=== PATIENT | male | born 1955 | race Caucasian/White ===

== ENCOUNTER 2018-05-24 06:27 | Inpatient (IN) | payer BC, OTHER ==
[~2018-05-24] VITALS: Ht 177.8 cm; Wt 127.9 kg
[~2018-05-24 06:27] MED LIST: BUSPIRONE HCL30 MG PO; CARAFATE1 GM PO; COREG12.5 MG PO; DIVALPROEX SOD500 M1 PO; PANTOPRAZOLE SO40 MG PO; ULTRAM50 MG PO; VENLAFAXINE HC150 M1 PO; WELCHOL625 MG PO; ZESTRIL20 MG PO
[2018-05-24 07:01] LABS: BASOPHILS # (AUTO) 0.1 (0.0-0.1); BASOPHILS % 0.7 % (0.0-1.0); EOSINOPHILS # (AUTO) 0.4 (0.0-0.4); EOSINOPHILS % 5.2 % (0.0-6.0); HEMATOCRIT 39.6 % (38.2-49.6); HEMOGLOBIN 12.9 g/dL (14.0-18.0); LYMPHOCYTES # (AUTO) 1.5 (1.0-3.2); LYMPHOCYTES % 19.7 % (18.0-39.1); MEAN CORPUSCULAR HEMOGLOBIN 29.3 pg (28-32); MEAN CORPUSCULAR HGB CONC 32.6 g/dL (31-35); MEAN CORPUSCULAR VOLUME 89.8 fL (81-99); MONOCYTES # (AUTO) 0.6 (0.2-0.8); NEUTROPHILS % 66.3 % (38.7-80.0); PLATELET COUNT 291 x10e3/uL (140-360); RED BLOOD COUNT 4.41 x10e6/uL (4.3-5.7); RED CELL DISTRIBUTION WIDTH 14.2 % (11.7-14.4)
[2018-05-24 07:12] LABS: INR 1.27; PROTHROMBIN TIME 14.9 seconds (11.9-14.5)
[2018-05-24 07:13] LABS: PARTIAL THROMBOPLASTIN TIME 27.6 seconds (23.8-35.5)
[2018-05-24] MEDS ORDERED: DILTIAZEM HCL 5 MG/ML 5 ML VIAL IV STA (07:30)
--- NOTE | 2018-05-24 08:00 | Diagnostic Imaging Report ---
EXAMINATION: CHEST SINGLE (PORTABLE) INDICATION: \S\sob \[id number] \S\0650 \S\Y COMPARISON: None FINDINGS: AP view TUBES and LINES: None. LUNGS: Lungs are well inflated. Bilateral pulmonary edema. Bibasilar atelectasis. PLEURA: Small bilateral pleural effusions. No pneumothorax. HEART AND MEDIASTINUM: Moderate enlargement of the cardiac silhouette. BONES AND SOFT TISSUES: No acute osseous lesion. Soft tissues are unremarkable. UPPER ABDOMEN: No free air under the diaphragm. IMPRESSION: Moderate enlargement of the cardiac silhouette with associated bilateral pulmonary edema. Signed by: Dr. Kay Dallas M.D. on 05/24/2018 7:16 AM
[2018-05-24 08:04] LABS: ALBUMIN 3.1 g/dL (3.5-5.0); ALBUMIN/GLOBULIN RATIO 1.1 (0.8-2.0); ANION GAP 13.3 mmol/L (8-16); CALCIUM 8.9 mg/dL (8.4-10.2); CREATININE, SERUM 1.36 mg/dL (0.72-1.25); POTASSIUM 4.3 mmol/L (3.5-5.1)
[2018-05-24] MEDS ORDERED: MONTELUKAST SOD10 MG PO (08:12)
[2018-05-24] MEDS ORDERED: ASPIRIN81 MG PO (08:12)
[2018-05-24] MEDS ORDERED: LAMOTRIGINE100 MG PO (08:12)
[2018-05-24] MEDS ORDERED: SEROQUEL25 MG PO (08:12)
[2018-05-24] MEDS ORDERED: ATORVASTATIN CA20 MG PO (08:12)
[2018-05-24] MEDS ORDERED: LOSARTAN POTASS25 MG PO (08:12)
[2018-05-24] MEDS: ENOXAPARIN SODIUM INJ 100 MG/ML SYR SC SCH ×2 (08:16→20:25)
[2018-05-24 08:21] LABS: MAGNESIUM 1.9 MG/DL (1.3-2.1)
[2018-05-24] MEDS ORDERED: ASPIRIN 81 MG ENTERIC COATED PO SCH (09:00)
[2018-05-24] MEDS ORDERED: DEXTROSE 50% SYRINGE 50 ML IV PRN (09:00)
[2018-05-24] MEDS ORDERED: MORPHINE SULFATE 2 MG/ML SYR IV PRN (09:00)
[2018-05-24] MEDS ORDERED: ONDANSETRON HCL INJ 2 MG/ML VIAL IV PRN (09:00)
[2018-05-24] MEDS: METOPROLOL TARTRATE 25 MG TAB PO SCH ×3 (09:06→17:25)
[2018-05-24 10:00] VITALS: BP 176/121
[2018-05-24] MEDS ORDERED: CLONIDINE HCL 0.1 MG TAB PO PRN (10:00)
[2018-05-24 10:01] VITALS: BP 190/100
[2018-05-24 10:05] VITALS: BP 190/100
[2018-05-24] MEDS ORDERED: FUROSEMIDE INJ 10 MG/ML 2 ML VIAL IV ONE (10:15)
[2018-05-24] MEDS: FAMOTIDINE 20 MG/2 ML VIAL IV SCH ×2 (10:30→20:32)
[2018-05-24] MEDS ORDERED: INSULIN REGULAR, HUMAN 100 UNIT/1 ML 3ML VIAL SQ SCH (11:30)
[2018-05-24 12:24] VITALS: BP 160/117
[2018-05-24 12:50] LABS: THYROID STIMULATING HORMONE 2.466 uIU/mL (0.350-4.940)
[2018-05-24 13:31] LABS: BILIRUBIN,URINE NEGATIVE (NEGATIVE); COLOR,URINE YELLOW (YELLOW); KETONES,URINE NEGATIVE (NEGATIVE); LEUKOCYTE ESTERASE ,URINE NEGATIVE (NEGATIVE); NITRITE,URINE NEGATIVE (NEGATIVE); PROTEIN,URINE DIPSTICK NEGATIVE (NEGATIVE); URINE UROBILINOGEN 0.2 mg/dL (0.2 - 1)
[2018-05-24] MEDS: BUSPIRONE HCL 5 MG TAB PO SCH ×2 (14:15→20:32)
[2018-05-24] MEDS: VENLAFAXINE HCL 75 MG CAPCR PO SCH ×2 (14:15→20:32)
[2018-05-24] MEDS ORDERED: BUSPIRONE HCL 30 MG PO SCH (15:00)
[2018-05-24 15:04] LABS: CLARITY,URINE SL CLOUDY (CLEAR)
[2018-05-24 16:08] VITALS: BP 164/106
[2018-05-24] MEDS ORDERED: CARVEDILOL 12.5 MG TAB PO SCH (17:00)
[2018-05-24] MEDS: LAMOTRIGINE 100 MG TAB PO SCH (17:25)
[2018-05-24] MEDS: HYDRALAZINE HCL 25 MG TAB PO SCH (17:25)
--- NOTE | 2018-05-24 17:36 | Consultation ---
DATE OF CONSULTATION: May 24, 2018 CARDIOLOGY CONSULTATION REASON FOR CONSULTATION: Congestive heart failure and atrial fibrillation with rapid ventricular response. CHIEF COMPLAINT: Shortness of breath, palpitations. HISTORY OF PRESENT ILLNESS: Patient is a 62-year-old man with history of hypertension, hyperlipidemia and diabetes who presents with 1 day history of palpitations and worsening shortness of breath, was found to be in atrial fibrillation with RVR and was given IV metoprolol as well as diltiazem which achieved adequate rate control. Now admitted for further cardiovascular workup. Denies any chest pain or prior history of NH or any cardiovascular problems including prior diagnosis of atrial fibrillation. Notably the patient was on carvedilol prior to admission, but denies any previous history of congestive heart failure. PAST MEDICAL HISTORY: 1. Hypertension. 2. Hyperlipidemia. 3. Diabetes. 4. Obesity. FAMILY HISTORY: No family history of early CAD or sudden cardiac . SOCIAL HISTORY: Patient denies any current smoking, drinking or illicit drug use. REVIEW OF SYSTEMS: Ten point review of systems was performed and is negative other than what is mentioned in history of present illness. PHYSICAL EXAMINATION: VITALS: Temperature 96.5, heart rate 128, respiratory rate 20, blood pressure 160/117, satting 95% on 2 liters nasal cannula. GENERAL: An obese, white man in no acute distress. CARDIOVASCULAR: Limited due to body habitus. PMI cannot be palpated. Irregular tachycardic. Normal S1and S2. No murmurs, rubs or gallops. Palpable carotid pulses. Palpable radial pulses. There is 1+ peripheral edema. No varicosities. RESPIRATORY: Exam again limited due to body habitus. There are decreased breath sounds on the left. ABDOMEN: Soft. Obese. Nontender with no masses. NEURO AND PSYCH: Alert and oriented to person, place and time. Normal affect. MEDICATIONS: Reviewed. LABORATORY DATA: Reviewed and notable for negative cardiac enzymes times two. BNP of 667. Creatinine of 1.4. IMAGING DATA: Reviewed. Chest x-ray shows left pleural effusion and pulmonary edema. ECG reviewed and shows atrial fibrillation with RVR. No ST-T changes suggestive of ischemia. Echocardiogram reviewed by me shows severely decreased LV systolic function EF of 30% to 35%. No significant valvular abnormalities. ASSESSMENT 1. Acute systolic heart failure. 2. Atrial fibrillation with rapid ventricular response. 3. Hypertension. 4. Pulmonary edema. 5. Hyperlipidemia. 6. Diabetes. 7. Acute kidney injury. PLAN: Recommend diuresing with furosemide 40 mg IV q.8 hours. Will up-titrate his metoprolol to achieve better rate control. Will discontinue carvedilol. Will also start him on hydralazine and nitrates for better BP control. Will hold MARAH inhibitors for now until renal function stabilizes as he may have an acute kidney injury. Continue aspirin and atorvastatin for primary prevention. Once he is euvolemic, he will require ischemic workup for his cardiomyopathy given his risk factors. Thank you for this consult. Will continue to follow. Job#: [id number]
[2018-05-24 20:00] VITALS: BP 162/107
[2018-05-24] MEDS: ATORVASTATIN 20 MG TAB PO SCH (20:32)
[2018-05-24] MEDS: QUETIAPINE FUMARATE 100 MG TAB PO SCH (21:11)
[2018-05-24] MEDS: FUROSEMIDE INJ 10 MG/ML 4 ML VIAL IV SCH (22:07)
[2018-05-24 23:49] LABS: CREATINE KINASE MB 3.9 ng/mL (0-5.0)
[2018-05-25] VITALS (9 sets, daily range): BP systolic 115–172; BP diastolic 67–112
[2018-05-25] MEDS: HYDRALAZINE HCL 25 MG TAB PO SCH ×4 (00:10→17:39)
[2018-05-25] MEDS: METOPROLOL TARTRATE 25 MG TAB PO SCH ×5 (00:30→17:39)
[2018-05-25 05:32] LABS: BASOPHILS % 0.4 % (0.0-1.0); EOSINOPHILS # (AUTO) 0.2 (0.0-0.4); EOSINOPHILS % 2.4 % (0.0-6.0); HEMATOCRIT 37.8 % (38.2-49.6); LYMPHOCYTES # (AUTO) 2.1 (1.0-3.2); MEAN CORPUSCULAR HEMOGLOBIN 28.9 pg (28-32); MEAN CORPUSCULAR HGB CONC 31.7 g/dL (31-35); MEAN CORPUSCULAR VOLUME 91.1 fL (81-99); MONOCYTES # (AUTO) 0.7 (0.2-0.8); MONOCYTES % 9.2 % (4.4-11.3); NEUTROPHILS # (AUTO) 4.7 (2.1-6.9); NEUTROPHILS % 60.6 % (38.7-80.0); PLATELET COUNT 257 x10e3/uL (140-360); RED BLOOD COUNT 4.15 x10e6/uL (4.3-5.7); RED CELL DISTRIBUTION WIDTH 14.4 % (11.7-14.4)
[2018-05-25 05:54] LABS: ALBUMIN 3.2 g/dL (3.5-5.0); ALBUMIN/GLOBULIN RATIO 1.1 (0.8-2.0); ANION GAP 15.3 mmol/L (8-16); CALCIUM 8.9 mg/dL (8.4-10.2); CHOL/HDL RATIO 5.1 (3.9-4.7); CREATININE, SERUM 1.51 mg/dL (0.72-1.25); POTASSIUM 4.3 mmol/L (3.5-5.1)
[2018-05-25] MEDS: FUROSEMIDE INJ 10 MG/ML 4 ML VIAL IV SCH ×3 (05:56→22:30)
[2018-05-25] MEDS: ASPIRIN 81 MG CHEW TAB PO SCH (08:42)
[2018-05-25] MEDS: BUSPIRONE HCL 5 MG TAB PO SCH ×3 (08:42→21:32)
[2018-05-25] MEDS: ENOXAPARIN SODIUM INJ 100 MG/ML SYR SC SCH ×2 (08:42→20:40)
[2018-05-25] MEDS: VENLAFAXINE HCL 75 MG CAPCR PO SCH ×3 (08:42→21:32)
[2018-05-25] MEDS: LAMOTRIGINE 100 MG TAB PO SCH ×2 (08:42→17:39)
[2018-05-25] MEDS: FAMOTIDINE 20 MG/2 ML VIAL IV SCH ×2 (08:42→21:32)
[2018-05-25] MEDS: MONTELUKAST SODIUM 10 MG TAB PO SCH (08:42)
[2018-05-25] MEDS: LOSARTAN POTASSIUM 100 MG TAB PO SCH (08:42)
[2018-05-25] MEDS ORDERED: LOSARTAN POTASSIUM 25 MG TAB PO SCH (09:00)
--- NOTE | 2018-05-25 12:24 | Progress Note ---
DATE: May 25, 2018 CARDIOLOGY PROGRESS NOTE SUBJECTIVE: Patient denies chest pain or shortness of breath. OBJECTIVE VITAL SIGNS: Temperature 96.5 degrees, pulse 104, respiratory rate 20, blood pressure 115/67, oxygen saturation 93% on nasal cannula. GENERAL: A morbidly obese gentleman in no acute distress. LUNGS: Clear to auscultation. However, appears tachypneic on exam. CARDIOVASCULAR: Irregularly irregular, tachycardic. Normal S1 and S2. No murmur. ABDOMEN: Soft, nontender. EXTREMITIES: Trace edema. CARDIAC MEDICATIONS 1. Losartan 100 mg p.o. daily. 2. Aspirin 81 mg p.o. daily. 3. Enoxaparin 100 mg subcutaneous q.12 h. 4. Metoprolol tartrate 37.5 mg p.o. q.6 h. 5. Furosemide 40 mg IV q.8 h. 6. Atorvastatin 20 mg p.o. nightly. LABS: WBC 7.82, hemoglobin 12, hematocrit 37.8, platelets 257. Sodium 142, potassium 4.3, chloride 106, CO2 25, BUN 18, creatinine 1.51. Troponin 0.022. Cholesterol 163, LDL 104, HDL 32, triglycerides 133. TELEMETRY: Atrial fibrillation. IMPRESSION 1. Acute systolic heart failure with ejection fraction 30% to 35%. 2. Atrial fibrillation, borderline rate control. 3. Pulmonary edema. 4. Hypertension. 5. Hyperlipidemia. 6. Diabetes mellitus. 7. Acute kidney injury. RECOMMENDATIONS: Continue diuretics. Patient remains volume-overloaded on exam. Uptitrate metoprolol for improved rate control. He will need to be switched to metoprolol succinate on discharge. Continue current cardiac medications otherwise. Discussed Coumadin versus novel oral anticoagulant with patient. He expressed preference for Xarelto. We can change patient to this medication on discharge if renal function is adequate. Continue current cardiac medications otherwise. He will require ischemic evaluation once he is euvolemic. Thank you for this consult. We will continue to follow. Job#: [id number] EV
--- NOTE | 2018-05-25 16:53 | Diagnostic Imaging Report ---
Examination: CT head without contrast Clinical Indication: Increased confusion. Technique: Transaxial noncontrast images from the skull base through the vertex were obtained. Sagittal and coronal reformatted images were done. Dose modulation, iterative reconstruction, and/or weight based adjustment of the mA/kV was utilized to reduce the radiation dose to as low as reasonably achievable. Comparison: None. Findings: Scalp: No abnormalities. Bones: Intact. No fractures. No blastic or lytic lesions. Brain sulci: Appropriate for patient's age. Ventricles: The ventricular size is out of proportion with respect to cerebral convexity sulci, concerning for a communicating type of hydrocephalus, such as normal pressure hydrocephalus. Extra-axial space: No abnormalities. Parenchyma: There are mild confluent areas of low-attenuation within subcortical and periventricular white matter, nonspecific, but could represent microvascular ischemic disease. No masses, hemorrhage, or acute or chronic cortical based vascular insults. Suprasellar region: No abnormalities. Craniocervical junction: The foramen magnum is patent. No Chiari one malformation. Impression: 1. No acute intracranial finding. 2. FIndings as described above are concerning for normal pressure hydrocephalus. 3. Moderate chronic microvascular ischemic change. Signed by: Dr. Bety Ag M.D. on 05/25/2018 4:50 PM
[2018-05-25] MEDS: ATORVASTATIN 20 MG TAB PO SCH (21:32)
[2018-05-25] MEDS: QUETIAPINE FUMARATE 100 MG TAB PO SCH (21:32)
[2018-05-26] VITALS (8 sets, daily range): BP systolic 128–155; BP diastolic 61–90
[2018-05-26] MEDS: METOPROLOL TARTRATE 25 MG TAB PO SCH ×4 (00:43→18:34)
[2018-05-26] MEDS: HYDRALAZINE HCL 25 MG TAB PO SCH ×4 (00:43→18:34)
[2018-05-26] MEDS: FUROSEMIDE INJ 10 MG/ML 4 ML VIAL IV SCH ×2 (06:05→15:00)
[2018-05-26] MEDS ORDERED: RIVAROXABAN 15 MG TABLET PO SCH (09:00)
[2018-05-26] MEDS: LOSARTAN POTASSIUM 100 MG TAB PO SCH (09:00)
[2018-05-26] MEDS: ASPIRIN 81 MG CHEW TAB PO SCH (09:55)
[2018-05-26] MEDS: LAMOTRIGINE 100 MG TAB PO SCH ×2 (09:55→21:50)
[2018-05-26] MEDS: FAMOTIDINE 20 MG/2 ML VIAL IV SCH ×2 (09:55→21:50)
[2018-05-26] MEDS: BUSPIRONE HCL 5 MG TAB PO SCH ×3 (09:55→21:50)
[2018-05-26] MEDS: VENLAFAXINE HCL 75 MG CAPCR PO SCH ×3 (09:55→21:50)
[2018-05-26] MEDS: MONTELUKAST SODIUM 10 MG TAB PO SCH (09:55)
[2018-05-26] MEDS: FUROSEMIDE 40 MG TAB PO SCH (17:19)
[2018-05-26] MEDS: QUETIAPINE FUMARATE 100 MG TAB PO SCH (21:50)
[2018-05-26] MEDS: ATORVASTATIN 20 MG TAB PO SCH (21:50)
[2018-05-27] VITALS (7 sets, daily range): BP systolic 128–155; BP diastolic 63–95
[2018-05-27] MEDS: METOPROLOL TARTRATE 25 MG TAB PO SCH ×4 (00:45→18:00)
[2018-05-27] MEDS: HYDRALAZINE HCL 25 MG TAB PO SCH ×4 (00:45→18:00)
[2018-05-27] MEDS: FUROSEMIDE 40 MG TAB PO SCH ×2 (06:30→18:00)
[2018-05-27] MEDS: MONTELUKAST SODIUM 10 MG TAB PO SCH (08:53)
[2018-05-27] MEDS: VENLAFAXINE HCL 75 MG CAPCR PO SCH ×3 (08:53→22:55)
[2018-05-27] MEDS: ASPIRIN 81 MG CHEW TAB PO SCH (08:53)
[2018-05-27] MEDS: LAMOTRIGINE 100 MG TAB PO SCH ×2 (08:53→22:55)
[2018-05-27] MEDS: LOSARTAN POTASSIUM 100 MG TAB PO SCH (08:53)
[2018-05-27] MEDS: FAMOTIDINE 20 MG/2 ML VIAL IV SCH ×2 (08:53→22:55)
[2018-05-27] MEDS: BUSPIRONE HCL 5 MG TAB PO SCH ×3 (08:53→22:55)
[2018-05-27] MEDS ORDERED: ENOXAPARIN SODIUM INJ 100 MG/ML SYR SC SCH ×2 (09:00→11:30)
[2018-05-27 10:14] LABS: ANION GAP 13.6 mmol/L (8-16); CALCIUM 9.3 mg/dL (8.4-10.2); CREATININE, SERUM 1.58 mg/dL (0.72-1.25); POTASSIUM 3.6 mmol/L (3.5-5.1)
[2018-05-27] MEDS ORDERED: FUROSEMIDE INJ 10 MG/ML 4 ML VIAL IV SCH (11:00)
--- NOTE | 2018-05-27 12:31 | Progress Note ---
DATE: May 27, 2018 CARDIOLOGY PROGRESS NOTE SUBJECTIVE: Patient denies chest pain or shortness of breath. OBJECTIVE VITAL SIGNS: Temperature 96.9 degrees, pulse 82, respiratory rate 22, blood pressure 136/90, oxygen saturation 94%. GENERAL: Obese gentleman, in no acute distress. LUNGS: Clear to auscultation bilaterally. No wheezes or crackles. CARDIOVASCULAR: Normal rate and regular rhythm. Normal S1 and S2. No murmur. ABDOMEN: Soft, nontender. EXTREMITIES: Trace edema. CARDIAC MEDICATIONS 1. Losartan 100 mg p.o. daily. 2. Aspirin 81 mg p.o. daily. 3. Furosemide 40 mg p.o. b.i.d. 4. Metoprolol tartrate 50 mg p.o. q.6h. 5. Atorvastatin 20 mg p.o. q.h.s. 6. Lovenox 100 mg subcutaneous daily. LABS: WBC 7.82, hemoglobin 12, hematocrit 37.8, and platelets 257. Sodium 137, potassium 3.6, chloride 101, CO2 26, BUN 21, creatinine 1.58. BMP 441. TELEMETRY: Normal sinus rhythm. IMPRESSION 1. Acute systolic heart failure with ejection fraction 30% to 35%. 2. Atrial fibrillation, currently sinus rhythm. 3. Pulmonary edema. 4. Hypertension. 5. Hyperlipidemia. 6. Diabetes mellitus. 7. Acute kidney injury versus chronic kidney disease. RECOMMENDATIONS: Continue diuretics. Additional dose of IV Lasix today. Continue current cardiac medications. He will need to be switched to metoprolol succinate on discharge. Xarelto was stopped for cardiac catheterization tomorrow. NPO after midnight. Thank you for this consult. We will continue to follow. Job#: [id number] ALONZO
[2018-05-27] MEDS ORDERED: ENOXAPARIN SOD INJ 40 MG/0.4 ML SYR SC SCH (17:00)
[2018-05-27] MEDS: ATORVASTATIN 20 MG TAB PO SCH (22:56)
[2018-05-27] MEDS: QUETIAPINE FUMARATE 100 MG TAB PO SCH (22:56)
[2018-05-28] VITALS (13 sets, daily range): BP systolic 72–161; BP diastolic 57–123
[2018-05-28] MEDS: HYDRALAZINE HCL 25 MG TAB PO SCH ×3 (00:49→12:18)
[2018-05-28] MEDS: METOPROLOL TARTRATE 25 MG TAB PO SCH ×3 (00:49→12:18)
[2018-05-28 06:04] LABS: BASOPHILS % 0.5 % (0.0-1.0); EOSINOPHILS # (AUTO) 0.4 (0.0-0.4); EOSINOPHILS % 5.1 % (0.0-6.0); HEMATOCRIT 38.7 % (38.2-49.6); HEMOGLOBIN 12.6 g/dL (14.0-18.0); LYMPHOCYTES # (AUTO) 1.9 (1.0-3.2); LYMPHOCYTES % 24.7 % (18.0-39.1); MEAN CORPUSCULAR HEMOGLOBIN 29.2 pg (28-32); MEAN CORPUSCULAR HGB CONC 32.6 g/dL (31-35); MEAN CORPUSCULAR VOLUME 89.8 fL (81-99); NEUTROPHILS # (AUTO) 4.3 (2.1-6.9); NEUTROPHILS % 56.3 % (38.7-80.0); PLATELET COUNT 249 x10e3/uL (140-360); RED BLOOD COUNT 4.31 x10e6/uL (4.3-5.7); RED CELL DISTRIBUTION WIDTH 14.5 % (11.7-14.4)
[2018-05-28] MEDS: FUROSEMIDE 40 MG TAB PO SCH (06:16)
[2018-05-28 06:28] LABS: ANION GAP 14.9 mmol/L (8-16); CALCIUM 9.5 mg/dL (8.4-10.2); CREATININE, SERUM 1.66 mg/dL (0.72-1.25); POTASSIUM 3.9 mmol/L (3.5-5.1)
[2018-05-28] MEDS ORDERED: HEPARIN SOD/SOD CHLORIDE 2,000 ML ONE (06:49)
[2018-05-28] MEDS ORDERED: IOPAMIDOL 370 MG/ML 200 ML INFUS..BTL INJ ONE (06:49)
[2018-05-28] MEDS ORDERED: LIDOCAINE HCL 2% LOCAL 20 ML VIAL ONE (06:49)
[2018-05-28] MEDS ORDERED: MIDAZOLAM HCL 2 MG/2 ML VIAL ONE (06:52)
[2018-05-28] MEDS ORDERED: FENTANYL CITRATE/PF 100MCG/2 ML INJ ONE (06:53)
[2018-05-28] MEDS ORDERED: SODIUM CHLORIDE 0.9% 1000ML 1,000 ML ONE (06:53)
[2018-05-28] MEDS ORDERED: NITROGLYCERIN/D5W 200 MCG/ML 250 ML ONE (07:20)
[2018-05-28] MEDS ORDERED: VERAPAMIL HCL 2.5 MG/ML 2 ML VIAL ONE (07:20)
[2018-05-28] MEDS ORDERED: HEPARIN SOD (PORCINE) 1000 UNIT/ML 30ML ONE (07:20)
[2018-05-28] MEDS: ASPIRIN 81 MG CHEW TAB PO SCH (09:00)
[2018-05-28] MEDS: BUSPIRONE HCL 5 MG TAB PO SCH (10:46)
[2018-05-28] MEDS: LAMOTRIGINE 100 MG TAB PO SCH (10:46)
[2018-05-28] MEDS: LOSARTAN POTASSIUM 100 MG TAB PO SCH (10:46)
[2018-05-28] MEDS: FAMOTIDINE 20 MG/2 ML VIAL IV SCH (10:46)
[2018-05-28] MEDS: MONTELUKAST SODIUM 10 MG TAB PO SCH (10:46)
[2018-05-28] MEDS: VENLAFAXINE HCL 75 MG CAPCR PO SCH (10:46)
[2018-05-28] MEDS ORDERED: METOPROLOL SUCC50 MG PO (11:11)
[2018-05-28] MEDS ORDERED: LASIX40 MG PO (11:12)
[2018-05-28] MEDS ORDERED: XARELTO10 MG PO (11:12)
--- NOTE | 2018-05-28 15:29 | Operative Report ---
DATE OF PROCEDURE: May 28, 2018 PROCEDURE: Cardiac catheterization. INDICATIONS: Congestive heart failure with EF less than 30%, atrial fibrillation. SEDATION AND CONSENT: Prior to the procedure, the risks, benefits, and alternatives of the procedure and moderate sedation were explained to the patient and his family. They understood and consented to proceed. MEDICATION ADMINISTRATION: Please see nursing notes for medications administered during the procedure. PROCEDURE IN DETAIL: Patient was brought to the cardiac catheterization laboratory in a fasting state. Right wrist was prepped and draped in a sterile fashion. A 1% lidocaine was used to infiltrate the right wrist over the right radial artery. A 6-Czech slender sheath was placed in the right radial artery using the modified Seldinger technique. A 6-Czech Medstro catheter was used to perform coronary angiography of the RCA and the LCA. Left heart catheterization was performed using an angled pigtail catheter. All catheters were removed over a wire. The access site was closed using TR band. Case ended without any complications. Estimated blood loss approximately 20 mL. FINDINGS: Left main coronary artery large caliber normal. LAD, very large vessel close to the apex. Large diagonal one. There is 30% plaque at the bifurcation of diagonal one and some luminal irregularities. No significant obstructive disease of the LAD. Left circumflex, large non-dominant vessel. Two small OM branches luminal irregularities only. RCA, very large dominant RCA, ectatic with sluggish flow. Large RPL system. Medium-sized RPDA system. No obstructive CAD of the RCA; however, there is significant arthrosclerotic burden with positive remodeling and ectasia of the entire RCA. COMPLICATIONS: None. SPECIMEN REMOVED: None. IMPLANTS: None. ESTIMATED BLOOD LOSS: 20 mL. RECOMMENDATIONS 1. Usual post-cath care until TR band removal. 2. Continue optimal medical therapy and risk factor control. 3. Follow up in the office 2 weeks post-procedure. 4. Management of heart failure and atrial fibrillation. Thank you for this consult. Job#: [id number] ANA LUISA
== END 2018-05-28 13:15 | disposition home health service (06) | DRG 286 ==
LOC: ER 06:27 → ERHOLD 09:02 → MED/SURG 09:32
PROVIDERS: ADMIT Family Medicine; ATTEND Family Medicine
PROC: 4A023N7 Measurement of Cardiac Sampling and Pressure, Left Heart, Percutaneous Approach (ICD-10-PCS; principal; 2018-05-28)
PROC: B2151ZZ Fluoroscopy of Left Heart using Low Osmolar Contrast (ICD-10-PCS; 2018-05-28)
PROC: B2111ZZ Fluoroscopy of Multiple Coronary Arteries using Low Osmolar Contrast (ICD-10-PCS; 2018-05-28)
DX: I13.0 Hypertensive heart and chronic kidney disease with heart failure and stage 1 through stage 4 chronic kidney disease, or unspecified chronic kidney disease (principal); I50.23 Acute on chronic systolic (congestive) heart failure; N17.9 Acute kidney failure, unspecified; R00.2 Palpitations; Z86.73 Personal history of transient ischemic attack (TIA), and cerebral infarction without residual deficits; E78.5 Hyperlipidemia, unspecified; Z83.3 Family history of diabetes mellitus; Z82.49 Family history of ischemic heart disease and other diseases of the circulatory system; I48.91 Unspecified atrial fibrillation; N18.9 Chronic kidney disease, unspecified; F31.9 Bipolar disorder, unspecified; E66.01 Morbid (severe) obesity due to excess calories; G47.30 Sleep apnea, unspecified; I25.10 Atherosclerotic heart disease of native coronary artery without angina pectoris; E11.22 Type 2 diabetes mellitus with diabetic chronic kidney disease; Z68.36 Body mass index [BMI] 36.0-36.9, adult
CPT/HCPCS: 36415; 70450; 71045; 80048; 80053; 80061; 81001; 82550; 82553; 83735; 83880; 84443; 84484; 85025; 85379; 85610; 85730; 87086; 93306; 93458; 99284; C1769; J1644; J1650; J1940; J2001; J2250; J2270; J7030; Q9967

== ENCOUNTER 2018-09-13 06:45 | Observation (INO) | payer OTHER ==
[~2018-09-13] VITALS: Ht 172.7 cm; Wt 135.7 kg
[~2018-09-13 06:45] MED LIST changes: +ASPIRIN81 MG PO; +ATORVASTATIN CA20 MG PO; +LAMOTRIGINE100 MG PO; +LASIX40 MG PO; +LOSARTAN POTASS25 MG PO; +METOPROLOL SUCC50 MG PO; +MONTELUKAST SOD10 MG PO; +SEROQUEL25 MG PO; +XARELTO10 MG PO
--- OUTSIDE RECORDS SUMMARY | 2018-09-13 06:48 | XMS REPORT ---
Author Author [facility] Address Unknown Phone Unavailable Care Team Providers Care Ict Account Manager Name Role Phone Svitlana BAIG Unavailable Unavailable Problems This patient has no known problems. Allergies, Adverse Reactions, Alerts This patient has no known allergies or adverse reactions. Medications This patient has no known medications. Results Test Description Test Time Test Comments Text Results Atomic Results Result Comments CT BRAIN WO 2018-05-25 16:47:00 [facility] [address] [place], [place] [address] Patient Name: MADDY FRAIRE MR #: [id number] : 1955 Age/Sex: 62/M Req #: [id number] Adm Physician: MANOHAR BAIG MD Ordered by: MANOHAR BAIG MD Report #: [id number] Location: MED/SURG Room/Bed: [facility] Procedure: [id number] CT/CT BRAIN WO Exam Date: 05/25/18 Exam Time: 1600 REPORT STATUS: Signed Examination: CT head without contrast Clinical Indication: Increased confusion. Technique: Transaxial noncontrast images from the skull base through the vertex were obtained. Sagittal and coronal reformatted images were done. Dose modulation, iterative reconstruction, and/or weight based adjustment of the mA/kV was utilized to reduce the radiation dose to as low as reasonably achievable. Comparison: None. Findings: Scalp: No abnormalities. Bones: Intact. No fractures. No blastic or lytic lesions. Brain sulci: Appropriate for patient's age. Ventricles: The ventricular size is out of proportion with respect to cerebral convexity sulci, concerning for a communicating type of hydrocephalus, such as normal pressure hydrocephalus. Extra-axial space: No abnormalities. Parenchyma: There are mild confluent areas of low-attenuation within subcortical and periventricular white matter, nonspecific, but could represent microvascular ischemic disease. No masses, hemorrhage, or acute or chronic cortical based vascular insults. Suprasellar region: No abnormalities. Craniocervical junction: The foramen magnum is patent. No Chiari one malformation. Impression: 1. No acute intracranial finding. 2. FIndings as described above are concerning for normal pressure hydrocephalus. 3. Moderate chronic microvascular ischemic change. Signed by: Dr. Bety Eng M.D. on 05/25/2018 4:50 PM Dictated By: BETY ENG MD 49 Transcribed By: AMILCAR on 05/25/18 165 COPY TO: MANOHAR BAIG MD CHEST SINGLE (PORTABLE) 2018-05-24 07:15:00 [place] [address] Patient Name: MADDY FRAIRE MR #: [id number] : 1955 Age/Sex: 62/M Req #: [id number] Adm Physician: Ordered by: MAKAYLA HARRY MD Report #: [id number] Location: ER Room/Bed: Procedure: [id number] DX/CHEST SINGLE (PORTABLE) Exam Date: 05/24/18 Exam Time: 0650 REPORT STATUS: Signed EXAMINATION: CHEST SINGLE (PORTABLE) INDICATION: COMPARISON: None FINDINGS: AP view TUBES and LINES: None. LUNGS: Lungs are well inflated. Bilateral pulmonary edema. Bibasilar atelectasis. PLEURA: Small bilateral pleural effusions. No pneumothorax. HEART AND MEDIASTINUM: Moderate enlargement of the cardiac silhouette. BONES AND SOFT TISSUES: No acute osseous lesion. Soft tissues are unremarkable. UPPER ABDOMEN: No free air under the diaphragm. IMPRESSION: Moderate enlargement of the cardiac silhouette with associated bilateral pulmonary edema. Signed by: Dr. Angela Perrin M.D. on 05/24/2018 7:16 AM Dictated By: ANGELA PERRIN MD 0716 COPY TO: MAKAYLA HARRY MD
--- NOTE | 2018-09-13 07:40 | NUR ---
XRAY AT BEDSIDE FOR CXR.
[2018-09-13 07:44] LABS: BASOPHILS % 0.4 % (0.0-1.0); EOSINOPHILS # (AUTO) 0.4 (0.0-0.4); EOSINOPHILS % 5.1 % (0.0-6.0); HEMATOCRIT 37.8 % (38.2-49.6); HEMOGLOBIN 11.8 g/dL (14.0-18.0); LYMPHOCYTES # (AUTO) 1.2 (1.0-3.2); LYMPHOCYTES % 15.3 % (18.0-39.1); MEAN CORPUSCULAR HEMOGLOBIN 28.9 pg (28-32); MEAN CORPUSCULAR HGB CONC 31.2 g/dL (31-35); MEAN CORPUSCULAR VOLUME 92.4 fL (81-99); MONOCYTES # (AUTO) 0.7 (0.2-0.8); MONOCYTES % 8.4 % (4.4-11.3); NEUTROPHILS # (AUTO) 5.6 (2.1-6.9); NEUTROPHILS % 70.3 % (38.7-80.0); PLATELET COUNT 200 x10e3/uL (140-360); RED BLOOD COUNT 4.09 x10e6/uL (4.3-5.7); RED CELL DISTRIBUTION WIDTH 16.8 % (11.7-14.4)
[2018-09-13 07:59] LABS: ALBUMIN 3.4 g/dL (3.5-5.0); ALBUMIN/GLOBULIN RATIO 1.1 (0.8-2.0); ANION GAP 12.9 mmol/L (8-16); CALCIUM 8.8 mg/dL (8.4-10.2); CREATININE, SERUM 1.36 mg/dL (0.72-1.25); POTASSIUM 4.9 mmol/L (3.5-5.1)
--- NOTE | 2018-09-13 08:05 | Diagnostic Imaging Report ---
EXAMINATION: CHEST SINGLE (PORTABLE) COMPARISON: Chest radiograph 05/24/2018. FINDINGS: Exam is limited by portable technique and rotation. TUBES and LINES: None. LUNGS: Low lung volumes. Patchy opacities in the bilateral lower and right mid lung zones. Perihilar and interstitial opacities. PLEURA: Small bilateral pleural effusions. No evidence of pneumothorax. HEART AND MEDIASTINUM: Mild enlargement of the cardiomediastinal silhouette. BONES AND SOFT TISSUES: No acute osseous lesion. Soft tissues are unremarkable. UPPER ABDOMEN: No free air under the diaphragm. IMPRESSION: Mild pulmonary interstitial edema and small bilateral pleural effusions. Cardiomegaly. Low lung volumes with patchy opacities in the lower lungs which could represent atelectasis or pneumonia in the appropriate clinical setting. Follow-up radiograph to resolution is suggested. Signed by: Dr. Kashif Vee MD on 09/13/2018 8:01 AM
[2018-09-13 08:06] LABS: CREATINE KINASE MB 1.5 ng/mL (0-5.0)
[2018-09-13] MEDS ORDERED: MIRTAZAPINE15 MG PO (08:45)
[2018-09-13] MEDS ORDERED: LAMOTRIGINE100 MG PO (08:45)
[2018-09-13] MEDS ORDERED: ABILIFY5 MG PO (08:45)
[2018-09-13] MEDS ORDERED: VENLAFAXINE HCL75 M2 PO (08:45)
[2018-09-13] MEDS ORDERED: CEFTRIAXONE SOD 1 GM VIAL IV SCH (09:00)
[2018-09-13] MEDS ORDERED: ASPIRIN 81 MG CHEW TAB PO ONE (09:00)
[2018-09-13] MEDS: FUROSEMIDE INJ 10 MG/ML 4 ML VIAL IV SCH ×3 (09:25→21:52)
[2018-09-13] MEDS ORDERED: AZITHROMYCIN 500MG/NS 250 ML 250 ML IV ONE (09:30)
[2018-09-13] MEDS ORDERED: FUROSEMIDE INJ 10 MG/ML 4 ML VIAL IV ONE (09:30)
--- NOTE | 2018-09-13 09:38 | NUR ---
NOTIFIED [facility]. Addendum: 09/13/18 at 0939 by AMCCAULE NOTIFIED RADIOLOGY TO [facility]Q [facility].
[2018-09-13 10:14] LABS: CHOL/HDL RATIO 2.6 (3.9-4.7)
[2018-09-13 10:24] LABS: BILIRUBIN,URINE NEGATIVE (NEGATIVE); CLARITY,URINE CLEAR (CLEAR); COLOR,URINE YELLOW (YELLOW); KETONES,URINE NEGATIVE (NEGATIVE); LEUKOCYTE ESTERASE ,URINE NEGATIVE (NEGATIVE); NITRITE,URINE NEGATIVE (NEGATIVE); PROTEIN,URINE DIPSTICK NEGATIVE (NEGATIVE); URINE UROBILINOGEN 0.2 mg/dL (0.2 - 1)
[2018-09-13 10:25] LABS: EPITHELIAL CELLS,URINE RARE /LPF
--- NOTE | 2018-09-13 10:43 | History and Physical ---
The patient is coming in for shortness of breath. HISTORY OF PRESENT ILLNESS: Mr. Jackson has a history of congestive heart failure and coronary artery disease. He was in his usual state of health until about 2 days prior to admission. The patient started out with acute shortness of breath, positive for some orthopnea and PND. The patient is admitted for congestive heart failure. PAST MEDICAL HISTORY 1. History of hypertension. 2. History of diabetes mellitus. 3. History of morbid obesity. 4. History of AFib which we corrected back. 5. History of chronic kidney disease, stage 2. 6. History of bipolar disease. MEDICATIONS: He takes at home: 1. Abilify 5 mg daily. 2. Aspirin 81 mg. 3. Atorvastatin 20 mg. 4. BuSpar 30 mg 3 times a day. 5. Carvedilol 12.5 mg. 6. Lasix 40 mg twice a day. 7. Promethazine 100 mg twice a day. 8. Losartan 25 mg. 9. Metoprolol 50 mg ER. 10. Mirtazapine 15 mg. 11. Montelukast 10 mg. 12. Seroquel 25 mg. 13. Xarelto 10 mg. 14. Venlafaxine 150 mg. SURGICAL HISTORY 1. History of tibial fracture. 2. Tonsillectomy and adenoidectomy. 3. The patient also had a recent cardiac cath with no significant coronary artery disease but significant atherosclerotic burden in the coronary arteries. The patient's EF last was 30%. REVIEW OF SYSTEMS: Negative for chest pain. Positive for shortness of breath. Positive for orthopnea. Positive for PND. No nausea, vomiting, diarrhea. No constipation. No rectal bleeding. No hematochezia. No hematemesis. Positive for mental status changes, which is normal for the patient. The patient has bipolar disease, which is very labile. No diplopia. No blurry vision. PHYSICAL EXAMINATION VITAL SIGNS: Temperature 97.4, pulse 104, blood pressure 158/78. Pulse oximetry is 97%. HEENT: Normocephalic and atraumatic. CV: S1 and S2 normal, regular rate and rhythm at this time. Not tachycardic. ABDOMEN: Nontender and nondistended. EXTREMITIES: No clubbing. No cyanosis. No edema. LABORATORY VALUES: White count is 7.7, hemoglobin 12.6, hematocrit 38.7. Coags: PT and INR 14.9 and 1.27. Chemistry: Sodium 143. Creatinine is 1.66. EGFR 48. BNP 440. Thyroid panel has not been done. The last done on 05/24/2018 was 2.46. IMAGING STUDIES: Chest x-ray has not been done yet. ASSESSMENT 1. Acute congestive heart failure. 2. Acute kidney injury. 3. History of hypertension. 4. History of atrial fibrillation, currently in sinus rhythm. Continue on anticoagulation. 5. Coronary artery disease. Continue with hyperlipidemic agent and also anticoagulation. 6. Diabetes mellitus. Check A1c and continue monitoring the patient's fluid balance. PLAN: Diurese the patient. Echocardiogram will be done. Will restart his home medications except his Lasix. Put him on IV Lasix. Restart his other medication. Repeat an echocardiogram. Strict I's and O's. Low salt diet. Further recommendations per clinical course. Will consult cardiology and follow up with his labs in the morning. Job#: [id number]
--- NOTE | 2018-09-13 10:53 | NUR ---
INCONTINENT CARE PROVIDED, CLEAN GOWN AND LINENS APPLIED, TOLERATED WELL. REPOSITIONED IN BED FOR COMFORT. NO SIGNS OF ACUTE DISTRESS NOTED AT THIS TIME.
[2018-09-13] MEDS: CEFTRIAXONE SOD 1 GM/NS 50 ML 50 ML IV SCH (11:06)
--- NOTE | 2018-09-13 11:07 | NUR ---
ULTRASOUND AT BEDSIDE FOR ECHO. NO SIGNS OF ACUTE DISTRESS NOTED AT THIS TIME.
--- NOTE | 2018-09-13 11:23 | NUR ---
RESPIRATORY AT BEDSIDE FOR ABG.
[2018-09-13 11:56] LABS: ABG HCO3 24 mmol/L (23-28); ABG PCO2 41 mmHg (41-51); ABG PH 7.38 (7.31-7.41); ABG PO2 98 mmHg (80-105)
--- NOTE | 2018-09-13 12:27 | NUR ---
PATIENT LAYING IN BED EYES CLOSED. RESP EVEN AND UNLABORED. SKIN WARM AND DRY. NO SIGNS OF ACUTE DISTRESS NOTED AT THIS TIME.
--- NOTE | 2018-09-13 12:51 | NUR ---
TELEMETRY BOX #[id number] APPLIED. NO SIGNS OF ACUTE DISTRESS NOTED AT THIS TIME.
[2018-09-13 13:30] VITALS: BP 134/96
[2018-09-13 13:38] VITALS: BP 133/89
--- NOTE | 2018-09-13 13:45 | NUR ---
Pt rec'd to [facility] at this time in stable condition accompanied by spouse
--- NOTE | 2018-09-13 14:06 | Diagnostic Imaging Report ---
Ventilation/perfusion lung scan Clinical Information: 62 M with SOB Comparison: Chest radiograph 09/13/2018 Discussion: Xenon-133 gas 10 mCi was administered via inhalation. Dynamic images of the lungs in the posterior projection were obtained through single breath, equilibrium, and washout phases. Distribution of tracer activity is slightly irregular throughout the lungs. There are no segmental ventilatory defects. Washout of tracer is diffusely delayed with air trapping diffusely throughout the left lung and in the mid right lung. Perfusion images of the lungs were obtained in multiple projections following intravenous administration of approximately 6 mCi of Tc-99m MAA. Distribution of tracer is irregular throughout the lungs. The contours of the lungs are well demarcated. There are no segmental perfusion defects of any size. The cardiomediastinal silhouette is enlarged. Impression: Scan findings represent a LOW probability for acute pulmonary embolic disease based on the PIOPED II criteria. Scan evidence of obstructive lung disease, left lung worse than right lung. Enlarged cardiac silhouette. Signed by: Dr. Karen Ely M.D. on 09/13/2018 2:03 PM
[2018-09-13 15:38] LABS: CREATINE KINASE MB 1.2 ng/mL (0-5.0)
[2018-09-13 16:00] VITALS: BP 134/96
[2018-09-13 16:16] VITALS: BP 134/92
[2018-09-13] MEDS ORDERED: CARVEDILOL 12.5 MG TAB PO SCH (17:00)
[2018-09-13] MEDS: VENLAFAXINE HCL 75 MG CAPCR PO SCH ×2 (17:15→21:52)
[2018-09-13] MEDS: LAMOTRIGINE 100 MG TAB PO SCH (17:15)
--- NOTE | 2018-09-13 19:23 | NUR ---
Report received and walking rounds complete. Pt A&O and resting in bed and in no apparent distress. Pt on tele. All safety measures ensured, bed alarm on, and pt call garsia near. Pt encouraged to use call garsia for assistance.
[2018-09-13 20:00] VITALS: BP 109/62
[2018-09-13] MEDS: MIRTAZAPINE 15 MG TAB PO SCH (21:52)
[2018-09-13] MEDS: ATORVASTATIN 20 MG TAB PO SCH (21:52)
[2018-09-13] MEDS: METOPROLOL SUCCINATE 50 MG TAB XL PO SCH (21:53)
[2018-09-13 21:55] VITALS: BP 109/62
[2018-09-14] VITALS (8 sets, daily range): BP systolic 131–151; BP diastolic 73–103
[2018-09-14 05:21] LABS: BASOPHILS % 0.3 % (0.0-1.0); EOSINOPHILS # (AUTO) 0.5 (0.0-0.4); EOSINOPHILS % 5.1 % (0.0-6.0); HEMATOCRIT 37.5 % (38.2-49.6); HEMOGLOBIN 11.7 g/dL (14.0-18.0); LYMPHOCYTES # (AUTO) 1.5 (1.0-3.2); LYMPHOCYTES % 16.3 % (18.0-39.1); MEAN CORPUSCULAR HEMOGLOBIN 28.3 pg (28-32); MEAN CORPUSCULAR HGB CONC 31.2 g/dL (31-35); MEAN CORPUSCULAR VOLUME 90.6 fL (81-99); MONOCYTES # (AUTO) 0.8 (0.2-0.8); MONOCYTES % 9.3 % (4.4-11.3); NEUTROPHILS # (AUTO) 6.1 (2.1-6.9); NEUTROPHILS % 68.8 % (38.7-80.0); PLATELET COUNT 192 x10e3/uL (140-360); RED BLOOD COUNT 4.14 x10e6/uL (4.3-5.7); RED CELL DISTRIBUTION WIDTH 16.8 % (11.7-14.4)
[2018-09-14 05:43] LABS: ANION GAP 14.3 mmol/L (8-16); CALCIUM 8.9 mg/dL (8.4-10.2); CHOL/HDL RATIO 2.9 (3.9-4.7); CREATININE, SERUM 1.36 mg/dL (0.72-1.25); MAGNESIUM 2.4 MG/DL (1.3-2.1); POTASSIUM 4.3 mmol/L (3.5-5.1)
--- NOTE | 2018-09-14 06:54 | NUR ---
report given to oncoming nurse
--- NOTE | 2018-09-14 06:59 | Diagnostic Imaging Report ---
EXAM: CHEST 2 VIEWS, PA and lateral INDICATION: Hypertension COMPARISON: AP view of the chest September 13, 2018 FINDINGS: LINES/TUBES: None LUNGS: No consolidations or edema. PLEURA: No effusions or pneumothorax. HEART AND MEDIASTINUM: Stable mild cardiomegaly. BONES AND SOFT TISSUES: No acute findings. IMPRESSION: Mild cardiomegaly without pulmonary edema. Signed by: Dr. Letty Wahl M.D. on 09/14/2018 6:56 AM
[2018-09-14 07:11] LABS: CREATINE KINASE MB 1.4 ng/mL (0-5.0)
--- NOTE | 2018-09-14 07:32 | Progress Note ---
DATE: SUBJECTIVE: Patient comes in for congestive heart failure and history of atrial fibrillation. Patient is currently doing very well and is diuresing well. No complaints, no shortness of breath, and no chest pain noted at this time. OBJECTIVE VITAL SIGNS: Temperature is 97.2, pulse of 95, respirations of 18, blood pressure is 139/82, and pulse oximetry is 98% on room air. GENERAL: Currently no complaints. HEENT: Normocephalic and atraumatic. Good oral dental hygiene. CARDIOVASCULAR: S1 and S2 irregular. ABDOMEN: Nontender and nondistended. EXTREMITIES: No clubbing, no cyanosis, and trace edema. LABORATORY VALUES: White count was 8.89, hemoglobin of 11.7, and hematocrit of 37.5. Chemistries; sodium of 139, potassium of 4.3, creatinine of 1.37, EGFR of 53%, LDL is 68, and HDL is 47. DIAGNOSTIC STUDIES: The patient's echocardiogram shows left ventricular EF of 20-25%, [id number] AI and MR and trace TR. The patient has possible vegetation on the mitral valve. The patient is doing well as far as the heart failure is, but there is a possible vegetation in the mitral valve, possibly we will need a DELMY. We will consult Dr. Anguiano, his slab installer. Microbiology blood cultures are pending. ASSESSMENT AND PLAN 1. Congestive heart failure. The patient is on diuresis, beta-blockade, and also on losartan. The patient is both on metoprolol and carvedilol, we will discontinue one of them and the patient is currently on Rocephin for probable urinary tract infection. 2. Mitral valve vegetation. The patient will need a DELMY. We will call cardiology. 3. Hyperlipidemia. Continue on atorvastatin. 4. Bipolar disorder. Continue on venlafaxine, mirtazapine, and . For further information, look in the chart. The patient is also on aspirin and Xarelto for anticoagulation for his atrial fibrillation. Job#: [id number] PSO
[2018-09-14] MEDS: FUROSEMIDE INJ 10 MG/ML 4 ML VIAL IV SCH ×4 (09:00→21:22)
[2018-09-14] MEDS: ASPIRIN 81 MG CHEW TAB PO SCH (09:07)
[2018-09-14] MEDS: LOSARTAN POTASSIUM 25 MG TAB PO SCH (09:07)
[2018-09-14] MEDS: LAMOTRIGINE 100 MG TAB PO SCH ×2 (09:08→17:06)
[2018-09-14] MEDS: RIVAROXABAN 15 MG TABLET PO SCH (09:08)
[2018-09-14] MEDS: VENLAFAXINE HCL 75 MG CAPCR PO SCH ×3 (09:08→21:23)
--- NOTE | 2018-09-14 09:35 | NUR ---
Transfer report given to Melchor. Pt to be transferred to 297.
--- NOTE | 2018-09-14 09:48 | NUR ---
Pt transferred to [facility] in stable condition with all belongings. Receiving nurse met in room with patient. Spouse called and made aware.
--- NOTE | 2018-09-14 10:16 | NUR ---
Recvd patient via wheelchair from OBS, AAOx3, assisted him to bed, call light in reach, side rails X2 up, patient denies any pain or SOB, keep monitoring
[2018-09-14] MEDS: CEFTRIAXONE SOD 1 GM/NS 50 ML 50 ML IV SCH (12:32)
[2018-09-14] MEDS ORDERED: CARVEDILOL 12.5 MG TAB PO ONE (13:00)
[2018-09-14] MEDS: CLONIDINE HCL 0.1 MG TAB PO SCH ×2 (13:20→21:24)
--- NOTE | 2018-09-14 19:22 | Consultation ---
DATE OF CONSULTATION: September 14, 2018 CARDIOLOGY CONSULTATION REQUESTING PHYSICIAN: Dr. Juan F Dover. REASON FOR CONSULTATION: Possible endocarditis. HISTORY OF PRESENT ILLNESS: This is a 62-year-old man with atrial fibrillation, acute systolic heart failure with EF 30% to 35%, hypertension, hyperlipidemia, diabetes mellitus, morbid obesity, and chronic kidney disease who presents with complaints of shortness of breath. The patient reports he has been short of breath for the last few months with progressive worsening. He indicates he has had dyspnea on exertion, walking around the store and to the bathroom at home. He denies any edema or orthopnea, but does report paroxysmal nocturnal dyspnea for the last month. He denies any chest pain or palpitations. Echocardiogram done on this admission had sensitive vegetation on the mitral valve on preliminary read; however, on review of the echocardiogram images, no vegetation was seen. REVIEW OF SYSTEMS: Negative except as per HPI. PAST MEDICAL HISTORY 1. Chronic systolic heart failure, EF 30% to 35%. 2. Atrial fibrillation. 3. Hypertension. 4. Hyperlipidemia. 5. Diabetes mellitus. 6. Chronic kidney disease. 7. Morbid obesity. PAST SURGICAL HISTORY 1. Tibial fracture. 2. Tonsillectomy. SOCIAL HISTORY: No tobacco, alcohol, or drugs. FAMILY HISTORY: Noncontributory. ALLERGIES: NO KNOWN DRUG ALLERGIES. MEDICATIONS: Please see medication list. PHYSICAL EXAMINATION VITAL SIGNS: Temperature 96.2 degrees, pulse 112, respiratory rate 22, blood pressure 143/87, oxygen saturation 98%. GENERAL: Morbidly obese gentleman, in no acute distress. Awake and alert. HEENT: Normocephalic, atraumatic. Pupils are equal. No scleral icterus. NECK: Supple. No thyromegaly or cervical lymphadenopathy. No carotid bruits. LUNGS: Clear to auscultation bilaterally. No wheezes or crackles. CARDIOVASCULAR: Normal rate, irregularly irregular. Normal S1 and S2. ABDOMEN: Soft and nontender. EXTREMITIES: 1+ pitting edema bilaterally. NEUROLOGIC: Nonfocal exam. CARDIAC MEDICATIONS 1. 50 mg p.o. daily. 2. Losartan 25 mg p.o. daily. 3. Aspirin 81 mg p.o. daily. 4. Furosemide 40 mg IV daily. 5. Metoprolol tartrate 100 mg p.o. at bedtime. 6. Atorvastatin 20 mg p.o. at bedtime. LABS: WBC 8.89, hemoglobin 11.7, hematocrit 37.5, platelets 192. Sodium 139, potassium 4.3, chloride 101, CO2 of 28, BUN 22, creatinine 1.36. TELEMETRY: Atrial fibrillation, rate controlled. IMPRESSION 1. Chcgv-we-ebyjnyx systolic heart failure. 2. Suspected mitral valve vegetation. 3. Atrial fibrillation. 4. Hypertension. 5. Hyperlipemia. 6. Diabetes mellitus. 7. Nqcjr-wj-nvctfji kidney disease, improving. 8. Morbid obesity. RECOMMENDATIONS: Continue diuresis. Monitor creatinine closely. Review of echocardiogram images does not reveal vegetation on the mitral valve. In addition, patient does not appear to have any evidence of infection with normal white count and negative cultures thus far. Patient has not been febrile during this admission. Would not recommend proceeding with DELMY at this time unless bacteremia is demonstrated. Continue current cardiac medications for now. Monitor patient closely on telemetry. Thank you for this consult. We will continue to follow. Job#: [id number] ANA LUISA
--- NOTE | 2018-09-14 20:03 | NUR ---
RECEIVED PT IN BED AOX3 .RESPIRATIONS ARE EVEN AND UNLABORED . DENIES PAIN .CALL LIGHT WITH IN REACH .CONTINUE TO MONITOR
[2018-09-14] MEDS: ATORVASTATIN 20 MG TAB PO SCH (21:00)
[2018-09-14] MEDS: MIRTAZAPINE 15 MG TAB PO SCH (21:23)
[2018-09-14] MEDS: METOPROLOL SUCCINATE 50 MG TAB XL PO SCH (21:24)
[2018-09-15 00:15] VITALS: BP 138/84
[2018-09-15 05:00] VITALS: BP 134/83
[2018-09-15 05:40] LABS: BASOPHILS % 0.4 % (0.0-1.0); EOSINOPHILS # (AUTO) 0.4 (0.0-0.4); EOSINOPHILS % 5.5 % (0.0-6.0); HEMATOCRIT 39.7 % (38.2-49.6); HEMOGLOBIN 12.5 g/dL (14.0-18.0); LYMPHOCYTES # (AUTO) 1.6 (1.0-3.2); LYMPHOCYTES % 19.8 % (18.0-39.1); MEAN CORPUSCULAR HEMOGLOBIN 28.5 pg (28-32); MEAN CORPUSCULAR HGB CONC 31.5 g/dL (31-35); MEAN CORPUSCULAR VOLUME 90.4 fL (81-99); MONOCYTES # (AUTO) 0.7 (0.2-0.8); MONOCYTES % 8.4 % (4.4-11.3); NEUTROPHILS # (AUTO) 5.2 (2.1-6.9); NEUTROPHILS % 65.8 % (38.7-80.0); PLATELET COUNT 205 x10e3/uL (140-360); RED BLOOD COUNT 4.39 x10e6/uL (4.3-5.7); RED CELL DISTRIBUTION WIDTH 16.9 % (11.7-14.4)
[2018-09-15] MEDS: CLONIDINE HCL 0.1 MG TAB PO SCH (06:00)
[2018-09-15 06:08] LABS: ANION GAP 15.1 mmol/L (8-16); CALCIUM 9.4 mg/dL (8.4-10.2); CREATININE, SERUM 1.32 mg/dL (0.72-1.25); POTASSIUM 4.1 mmol/L (3.5-5.1)
--- NOTE | 2018-09-15 07:05 | NUR ---
PT RESTED DURING THE NIGHT .NO ACUTE DISTRESS NOTED .REPORT GIVEN TO THE ON COMING NURSE
--- NOTE | 2018-09-15 07:21 | Progress Note ---
DATE: Patient is admitted for congestive heart failure. Currently, the patient is afebrile. No shortness of breath. No orthopnea. No PND. Is on Lasix IV. The patient was seen hand laster yesterday, and cleared from cardiology point. No DELMY recommendation. OBJECTIVE VITAL SIGNS: Today's temperature is 95.7, pulse of 92, respirations of 22, blood pressure is 134/83, and pulse oximetry at 97%. HEENT: Normocephalic and atraumatic. The patient has poor dental hygiene. CV: S1 and S2 normal. Regular rate and rhythm. ABDOMEN: Nontender and nondistended. LUNGS: Positive for a few inspiratory crackles. EXTREMITIES: No clubbing. No cyanosis. Trace edema. LABORATORY VALUES: Today's white count is 7.93, hemoglobin 12.5, hematocrit 39.7. Chemistry: Sodium 136, potassium 4.1, BUN of 15.1, and creatinine of 1.32. Lactic acid was normal. ASSESSMENT 1. Iguux-dp-eggjhhd congestive heart failure: The patient to be continued on intravenous Lasix and switch to p.o. 2. Suspected mitral valve vegetation: The patient has been followed by cardiology. No DELMY recommendation at this time. Will continue monitoring the patient. 3. Atrial fibrillation: The patient is on anticoagulation. 4. Hypertension: Continue on antihypertensive medications. 5. Diabetes mellitus: Diet controlled. Will continue the same. 6. Kthip-xz-bfwlmyv kidney disease, improving. 7. Morbid obesity with sleep apnea: Will continue with sleep machine. Further recommendations per clinical course. Will continue monitoring the patient as an outpatient. Medicines on discharge as per medical reconciliation sheet. Job#: [id number] ERIC
--- NOTE | 2018-09-15 07:50 | NUR ---
patient up in bed, denies any pain or SOB, at bed side, no distress noted, tolerated breakfast
[2018-09-15 08:27] VITALS: BP 170/95
[2018-09-15] MEDS: LAMOTRIGINE 100 MG TAB PO SCH (08:35)
[2018-09-15] MEDS: RIVAROXABAN 15 MG TABLET PO SCH (08:35)
[2018-09-15] MEDS: ASPIRIN 81 MG CHEW TAB PO SCH (08:35)
[2018-09-15] MEDS: FUROSEMIDE INJ 10 MG/ML 4 ML VIAL IV SCH ×2 (08:35)
[2018-09-15] MEDS: VENLAFAXINE HCL 75 MG CAPCR PO SCH (08:35)
[2018-09-15 08:37] VITALS: BP 170/95
[2018-09-15] MEDS: LOSARTAN POTASSIUM 25 MG TAB PO SCH (08:54)
--- NOTE | 2018-09-15 10:32 | NUR ---
patient discharged home, patient aware about f/up appointments, clarified questions regarding medications and he verbalized understanding, IV canula removed with tip intact, no ss of infiltration , tele returned, at bedside giving ride
== END 2018-09-15 10:22 | disposition home or self-care (01) ==
LOC: ER 06:45 → ERHOLD 10:11 → IMCU 13:45 → MED/SURG3 09-14 09:42
PROVIDERS: ADMIT Family Medicine; ATTEND Family Medicine
DX: I13.0 Hypertensive heart and chronic kidney disease with heart failure and stage 1 through stage 4 chronic kidney disease, or unspecified chronic kidney disease (principal); I50.23 Acute on chronic systolic (congestive) heart failure; J96.91 Respiratory failure, unspecified with hypoxia; I25.10 Atherosclerotic heart disease of native coronary artery without angina pectoris; N18.2 Chronic kidney disease, stage 2 (mild); E11.22 Type 2 diabetes mellitus with diabetic chronic kidney disease; N17.9 Acute kidney failure, unspecified; I48.91 Unspecified atrial fibrillation; Z79.01 Long term (current) use of anticoagulants; Z87.891 Personal history of nicotine dependence; E78.5 Hyperlipidemia, unspecified; E66.01 Morbid (severe) obesity due to excess calories; Z68.42 Body mass index [BMI] 45.0-49.9, adult; I33.0 Acute and subacute infective endocarditis; F31.9 Bipolar disorder, unspecified; G47.30 Sleep apnea, unspecified
CPT/HCPCS: 36415 ×3; 36600; 71045; 71046; 78582; 80048 ×2; 80053; 80061 ×2; 81001; 82550 ×2; 82553 ×2; 82805; 83605; 83690; 83735; 83880 ×2; 84443; 84484 ×2; 85025 ×3; 87040; 87400; 93005; 93306; 99285; G0378 ×3; J0456; J0696 ×2; J1940 ×3

== ENCOUNTER → 2019-02-03 | Outpatient (CLI) | payer MEDICARE ==
[~2019-02-03] MED LIST changes: +ABILIFY5 MG PO; +MIRTAZAPINE15 MG PO; +VENLAFAXINE HCL75 M2 PO
--- NOTE | 2019-02-03 13:14 | Diagnostic Imaging Report ---
Examination: MRI BRAIN WITHOUT CONTRAST History: Syncope. Dizziness. Comparison studies: Head CT performed May 25, 2018. Technique: Sagittal T2; axial DWI, FLAIR, GRE or SWI, T1, Coronal FLAIR. Intravenous contrast: None Findings: Scalp: No abnormal signal. No masses. Bone marrow: Normal in signal intensity. Brain volume: Adequate for age. No volume loss. Ventricles: Normal in size and configuration. No hydrocephalus. Extra-axial spaces: No abnormalities. Parenchyma: There are patchy and confluent areas of T2/FLAIR hyperintensity in the periventricular and subcortical and pontine white matter, nonspecific. A chronic lacunar infarct is demonstrated in the left lateral thalamus. No masses, hemorrhage, or acute vascular insults. Suprasellar and sellar region: No abnormalities. Craniocervical junction: No abnormalities. The foramen magnum is patent. No Chiari malformations. Vessels: Normal flow-voids in the arteries and sinuses. Additional findings:None. IMPRESSION: 1. No acute intracranial abnormalities. 2. Severe chronic microvascular ischemic change and moderate volume loss. Chronic lacunar infarct in the left lateral thalamus. Signed by: Dr. Bety Ag M.D. on 02/03/2019 1:10 PM
== END ==
LOC: MRI 11:07
PROVIDERS: ATTEND Family Medicine
DX: I63.9 Cerebral infarction, unspecified (principal); R55 Syncope and collapse
CPT/HCPCS: 70551; 93880

== ENCOUNTER 2019-05-31 10:58 | Inpatient (IN) | payer MEDICARE ==
[~2019-05-31] VITALS: Ht 177.8 cm; Wt 133.6 kg
[2019-05-31] MEDS ORDERED: FAMOTIDINE 20 MG/2 ML VIAL IV STA (11:23)
[2019-05-31] MEDS ORDERED: SODIUM CHLORIDE 0.9% 1000ML 1,000 ML IV STA ×2 (11:23→18:33)
[2019-05-31 11:45] LABS: BASOPHILS # (AUTO) 0.1 (0.0-0.1); BASOPHILS % 0.7 % (0.0-1.0); EOSINOPHILS # (AUTO) 0.3 (0.0-0.4); EOSINOPHILS % 3.9 % (0.0-6.0); HEMATOCRIT 39.9 % (38.2-49.6); LYMPHOCYTES # (AUTO) 1.4 (1.0-3.2); LYMPHOCYTES % 19.2 % (18.0-39.1); MEAN CORPUSCULAR HEMOGLOBIN 29.7 pg (28-32); MEAN CORPUSCULAR HGB CONC 32.6 g/dL (31-35); MEAN CORPUSCULAR VOLUME 91.1 fL (81-99); MONOCYTES # (AUTO) 0.7 (0.2-0.8); MONOCYTES % 9.3 % (4.4-11.3); NEUTROPHILS # (AUTO) 4.8 (2.1-6.9); NEUTROPHILS % 66.6 % (38.7-80.0); PLATELET COUNT 224 x10e3/uL (140-360); RED BLOOD COUNT 4.38 x10e6/uL (4.3-5.7); RED CELL DISTRIBUTION WIDTH 13.9 % (11.7-14.4)
[2019-05-31 11:57] LABS: INR 1.01; PARTIAL THROMBOPLASTIN TIME 26.3 seconds (23.8-35.5); PROTHROMBIN TIME 13.8 seconds (11.9-14.5)
[2019-05-31 12:09] LABS: ANION GAP 14.3 mmol/L (8-16); CALCIUM 9.6 mg/dL (8.4-10.2); CREATININE, SERUM 1.43 mg/dL (0.72-1.25); MAGNESIUM 2.4 MG/DL (1.3-2.1); POTASSIUM 4.3 mmol/L (3.5-5.1)
[2019-05-31 12:30] LABS: CREATINE KINASE MB 3.1 ng/mL (0-5.0); THYROID STIMULATING HORMONE 0.922 uIU/mL (0.350-4.940)
--- NOTE | 2019-05-31 12:34 | Diagnostic Imaging Report ---
Examination: CT head without contrast Clinical Indication: Weakness. Technique: Transaxial noncontrast images from the skull base through the vertex were obtained. Sagittal and coronal reformatted images were done. Dose modulation, iterative reconstruction, and/or weight based adjustment of the mA/kV was utilized to reduce the radiation dose to as low as reasonably achievable. Comparison: head CT May 25, 2018 . Brain MRI performed February 03, 2019. Findings: Scalp: No abnormalities. Bones: Intact. No fractures. No blastic or lytic lesions. Brain sulci: Appropriate for patient's age. Ventricles: The ventricular size is out of proportion with respect to cerebral convexity sulci, concerning for a communicating type of hydrocephalus, such as normal pressure hydrocephalus. Extra-axial space: No abnormalities. Parenchyma: Again demonstrated are patchy and confluent areas of low-attenuation within subcortical and periventricular white matter, nonspecific, but could represent microvascular ischemic disease. A chronic lacunar infarct is demonstrated in the left lateral thalamus. No masses, hemorrhage, or acute or chronic cortical based vascular insults. Suprasellar region: No abnormalities. Craniocervical junction: The foramen magnum is patent. No Chiari one malformation. Impression: 1. No new or acute intracranial abnormality when compared to prior head CT and brain MRI performed on May 25, 2018 and February 03, 2019, respective. 2. Unchanged findings concerning for normal pressure hydrocephalus. 3. Unchanged moderate chronic microvascular ischemic change. Signed by: Dr. Bety Ag M.D. on 05/31/2019 12:30 PM
--- NOTE | 2019-05-31 12:37 | Diagnostic Imaging Report ---
Chest, 1 view, 05/31/2019. History: Weakness. Comparison: 09/14/2019. Findings: The cardiomediastinal silhouette and pulmonary vasculature are within normal limits for a portable exam. There is no focal consolidation or pleural effusion. There are no acute osseous or soft tissue abnormalities. Impression: No acute cardiopulmonary abnormality. Signed by: Killian Lipscomb on 05/31/2019 12:33 PM
--- NOTE | 2019-05-31 17:53 | Diagnostic Imaging Report ---
Examination: MRI BRAIN WO CONTRAST History: Right weakness. Comparison studies: 02/03/2019 brain MRI. 05/31/2019 and 05/25/[address] Technique: Sagittal T2; axial DWI, FLAIR, GRE or SWI, T1, Coronal FLAIR. Intravenous contrast: None Findings: Scalp: No abnormal signal. No masses. Bone marrow: Normal in signal intensity. Brain volume: Adequate for age. No volume loss. Ventricles: The ventricular size is out of proportion with respect to cerebral convexity sulci, concerning for a communicating type of hydrocephalus, such as normal pressure hydrocephalus. Extra-axial spaces: No abnormalities. Parenchyma: Again demonstrated are patchy and confluent areas of T2/FLAIR hyperintensity in the periventricular and subcortical white matter, nonspecific. A chronic lacunar infarct is demonstrated in the left lateral thalamus. No masses, hemorrhage, or acute vascular insults. Suprasellar and sellar region: No abnormalities. Craniocervical junction: No abnormalities. The foramen magnum is patent. No Chiari malformations. Vessels: Normal flow-voids in the arteries and sinuses. Additional findings:None. IMPRESSION: No acute abnormalities when compared to prior brain MRI dated 02/03/2019. Severe chronic microvascular ischemic change and moderate volume loss. Chronic lacunar infarct in the left lateral thalamus. Signed by: Dr. Bety Ag M.D. on 05/31/2019 5:50 PM
--- NOTE | 2019-05-31 18:19 | NUR ---
straight cath inserted for ua via aseptic technique per md orders; urine output approx 200 cc; ua collected and sent to lab
[2019-05-31] MEDS ORDERED: FAMOTIDINE 20 MG/2 ML VIAL IV NR (18:30)
[2019-05-31] MEDS ORDERED: SODIUM CHLORIDE 0.9% 1000ML 1,000 ML ONE (18:37)
[2019-05-31 18:43] LABS: BILIRUBIN,URINE NEGATIVE (NEGATIVE); CLARITY,URINE SL CLOUDY (CLEAR); COLOR,URINE YELLOW (YELLOW); KETONES,URINE NEGATIVE (NEGATIVE); LEUKOCYTE ESTERASE ,URINE NEGATIVE (NEGATIVE); NITRITE,URINE NEGATIVE (NEGATIVE); PROTEIN,URINE DIPSTICK TRACE (NEGATIVE); URINE UROBILINOGEN 1 mg/dL (0.2 - 1)
[2019-05-31 18:58] LABS: AMORPHOUS SEDIMENT,URINE FEW (FEW); BACTERIA,URINE FEW /HPF; MUCUS,URINE MODERATE (RARE)
--- NOTE | 2019-05-31 20:00 | NUR ---
Pt admitted to room 298 awake, alert, and oriented to person, hospital, and date. Dx: Ataxia, weakness, obesity. On underwear cutter with NSR., #32. Lung sounds CTA. Oxygen Saturation on room air 94%. Abdomen soft, non-tender, distended, + 4 bowel sounds. amb with assist x1. 20g IV right AC, flushed 10ml NS. Hx CHF, AFIB, BIPOLAR, COPD, DEPRESSION. ROM x4 extremities. Lives with at home. Oriented to call garsia. Bed low and locked. Call garsia within reach. Bed alarm on. Will continue to monitor.
[2019-05-31 20:23] VITALS: BP 165/97
[2019-05-31] MEDS ORDERED: VENLAFAXINE HC150 MG (20:32)
[2019-05-31] MEDS ORDERED: CARVEDILOL12.5 MG (20:32)
[2019-05-31] MEDS ORDERED: BENZONATATE100 MG (20:32)
[2019-05-31] MEDS ORDERED: METOPROLOL SUC100 MG (20:32)
[2019-05-31 20:34] VITALS: BP 165/97
[2019-05-31 20:48] VITALS: BP 165/97
[2019-06-01] VITALS (10 sets, daily range): BP systolic 115–186; BP diastolic 83–109
[2019-06-01 06:42] LABS: BASOPHILS % 0.4 % (0.0-1.0); EOSINOPHILS # (AUTO) 0.3 (0.0-0.4); EOSINOPHILS % 4.9 % (0.0-6.0); HEMOGLOBIN 12.3 g/dL (14.0-18.0); LYMPHOCYTES # (AUTO) 1.2 (1.0-3.2); LYMPHOCYTES % 22.3 % (18.0-39.1); MEAN CORPUSCULAR HEMOGLOBIN 29.5 pg (28-32); MEAN CORPUSCULAR HGB CONC 32.4 g/dL (31-35); MEAN CORPUSCULAR VOLUME 91.1 fL (81-99); MONOCYTES # (AUTO) 0.6 (0.2-0.8); MONOCYTES % 11.5 % (4.4-11.3); NEUTROPHILS # (AUTO) 3.3 (2.1-6.9); NEUTROPHILS % 60.7 % (38.7-80.0); PLATELET COUNT 175 x10e3/uL (140-360); RED BLOOD COUNT 4.17 x10e6/uL (4.3-5.7); RED CELL DISTRIBUTION WIDTH 13.6 % (11.7-14.4)
[2019-06-01 07:08] LABS: ALBUMIN 3.3 g/dL (3.5-5.0); ALBUMIN/GLOBULIN RATIO 1.1 (0.8-2.0); ANION GAP 11.9 mmol/L (8-16); CALCIUM 9.3 mg/dL (8.4-10.2); CHOL/HDL RATIO 5.7 (3.9-4.7); CREATININE, SERUM 1.3 mg/dL (0.72-1.25); MAGNESIUM 2.1 MG/DL (1.3-2.1); PHOSPHORUS 2.8 MG/DL (2.3-4.7); POTASSIUM 3.9 mmol/L (3.5-5.1)
[2019-06-01 07:27] LABS: CREATINE KINASE MB 4.3 ng/mL (0-5.0)
--- NOTE | 2019-06-01 07:48 | NUR ---
Attempted x3 IV, no IV access. Patient tolerated well. Report given to morning nurse.
--- NOTE | 2019-06-01 07:50 | NUR ---
PATIENT IS AWAKE, CONFUSE BUT ALERT TO SELF AND PLACE. PATIENT IN STABLE CONDITION WITH NO S/S OF RESPIRATORY DISTRESS. NO PAIN VOICED. IV FLUIDS INFUSING. TELEMETRY APPLIED. CALL LIGHT IS WITHIN REACH, PATIENT INSTRUCTED TO CALL FOR ASSISTANCE NEEDED.
[2019-06-01] MEDS: ASPIRIN 81 MG CHEW TAB PO SCH (09:05)
[2019-06-01] MEDS: LAMOTRIGINE 100 MG TAB PO SCH ×2 (09:05→16:42)
[2019-06-01] MEDS: LOSARTAN POTASSIUM 25 MG TAB PO SCH (09:05)
[2019-06-01] MEDS: FUROSEMIDE 40 MG TAB PO SCH ×2 (09:06→16:42)
--- NOTE | 2019-06-01 11:15 | NUR ---
CALL PLACED OUT TO DR. BAIG- REGARDING DR. LORA'S REQUEST TO CALLOUT TO DR. BAIG REGARDING HER CONSULT; OF PATIENT ALSO ASKED FOR A CALLOUT TO TO BE PLACED. AWAITING CALLBACK.
--- NOTE | 2019-06-01 13:37 | History and Physical ---
REASON FOR ADMISSION: The patient is a 63-year-old, who comes in with mental status changes. HISTORY PRESENT ILLNESS: This is a 63-year-old gentleman with a history of COPD, history of hypertension, history of sleep apnea, on observation, was in usual state of health until the patient's noticed that the patient had acute mental status changes, staggering through the rooms and also has gait instability. The patient was brought in. Labs were normal. CT was normal. The patient was admitted for overnight observation of his neurological status. MEDICATIONS: Include: 1. Abilify 5 mg daily. 2. Aspirin 81 mg daily. 3. Atorvastatin 20 mg daily. 4. Benzonatate 100 mg daily. 5. Carvedilol 12.5 mg twice a day. 6. Lasix 40 mg daily. 7. Lamotrigine 100 mg b.i.d. 8. Metoprolol 100 mg daily. 9. Montelukast 10 mg daily. 10. Quetiapine 50 mg at nighttime. 11. Xarelto 15 mg daily. 12. Levothyroxine 150 mg daily. The patient on questioning about his medication intake, the patient has taken 50 mg of Abilify three times a day or is at 50 mg once a day. The patient reports it is 10 mg once a day. PAST MEDICAL HISTORY: On other medical history, the patient has a history of tibial fracture surgery, tonsillectomy and adenoidectomy. The patient also has history of bipolar disease. Additional medical history includes atrial fibrillation, morbid obesity, and hypertension. REVIEW OF SYSTEMS: Negative for chest pain. Positive for shortness of breath on exertion. No nausea, vomiting, or diarrhea. No constipation. No rectal bleeding and no gastrointestinal bleeds. No diplopia. No blurry vision. Positive for gait abnormalities and also positive for acute mental status changes according to the . Currently, the patient is very stable. PHYSICAL EXAMINATION: VITAL SIGNS: Temperature is 96.5, pulse of 64, blood pressure is 186/95, pulse ox of 99% at room air. HEENT: Normocephalic, atraumatic. The patient has a look. CVS: S1, S2. Irregular, distant. ABDOMEN: Nontender, nondistended, protuberant. EXTREMITIES: No clubbing. Positive for lymphedema bilaterally. LABORATORY VALUES: White count of 7.2, hemoglobin of 13.0, hematocrit of 39, otherwise normal indices. Chemistry; sodium 140, potassium 4.3, BUN of 19, creatinine of 1.53 with HGFR of 50. Magnesium is 2.4. CK was 274. Troponins have been trended to be negative. BNP of 131.6. Lipase is 419. MICROBIOLOGY: Urine cultures and blood cultures are pending. IMAGING STUDIES: Brain MRI shows no acute abnormalities when compared to brain MRI on 02/03/2019. Severe chronic microvascular changes, chronic lacunar infarcts in the lateral thalamus. Brain CT also noted. Chest x-ray was essentially normal. No cardiopulmonary disorders. ASSESSMENT: 1. Acute mental status changes. 2. Gait abnormalities. 3. Hyperlipidemia. 4. Atrial fibrillation. 5. Hypertension. 6. History of chronic obesity hypoventilation syndrome. 7. 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 PLAN: Neurological consult has been done. We will restart his medications. We will decrease his Abilify to 10 mg daily and also venlafaxine can be decreased. Possible multiple medication induced mental status changes and/or gait abnormality could be a problem. The patient has severe bipolar disease. Further recommendation per clinical course. We will continue to monitor the patient. Possible discharge in the evening after Dr. Jay has seen the patient. MD JEREMY Carrasco/MODL /[id number]
--- NOTE | 2019-06-01 13:47 | NUR ---
WOUND CARE NURSE INITIAL CONSULTATION. 63 YEAR OLD MALE ADMITTED TO [facility] WITH DX OF ATAXIA, OBESITY AND WEAKNESS. HEAD TO TOE SKIN ASSESSMENT PERFORMED TODAY. PT PRESENTS WITH MULTIPLE SCRATCHES TO BILATERAL LOWER EXTREMITIES, MILD ERYTHEMA PRESENT. THERE ARE NO OTHER AREAS OF CONCERN NOTED AT THIS TIME. LABS: WBC: 5.7 ALB: 3.3 RECOMMENDATIONS: PROVIDE PT WITH ALTERNATING LOW AIR LOSS MATTRESS. PROVIDE PT WITH HEEL PROTECTOR AND PILLOW SUSPENSIONS. TURN PT EVERY TWO HOURS AND PRN. APPLY BACTROBAN OINTMENT TO BILATERAL LOWER EXTREMITIES SCRATCHES AND LEAVE SHANDA. RECONSULT WOUND CARE PRN. THANKS FOR THIS CONSULTATION. Addendum: 06/01/19 at 1353 by Smiley Talbot RN Amended: Links added.
--- NOTE | 2019-06-01 14:44 | NUR ---
SPOKE WITH DR. BAIG REGARDING AN AMMONIA LEVEL LAB ORDER DUE TO THE PATIENT'S PERIODS OF CONFUSION- ORDER RECEIVED.
[2019-06-01 15:05] LABS: CREATINE KINASE MB 5.7 ng/mL (0-5.0)
[2019-06-01] MEDS: MUPIROCIN 2% OINT 22 GM TUBE TOP SCH (16:40)
[2019-06-01] MEDS: MONTELUKAST SODIUM 10 MG TAB PO SCH (16:43)
[2019-06-01] MEDS: RIVAROXABAN 10 MG TABLET PO SCH (16:43)
--- NOTE | 2019-06-01 17:44 | NUR ---
SPOKE WITH DR. BAIG REGARDING PATIENT'S BLOOD PRESSURE OF 166/88- NEW ORDER RECEIVED FOR PRN BP MEDICATION. DR. BAIG AWARE PATIENT'S FLUIDS HAVE REACHED A STOP DATE- NO NEW ORDERS.
[2019-06-01] MEDS: HYDRALAZINE HCL 20 MG/ML VIAL IV PRN (18:09)
--- NOTE | 2019-06-01 19:27 | NUR ---
PATIENT IS IN STABLE CONDITION WITH NO S/S OF RESPIRATORY DISTRESS. NO PAIN VOICED. TELEMETRY APPLIED. SITTER PRESENT IN ROOM. CALL LIGHT IS WITHIN REACH, PATIENT INSTRUCTED TO CALL FOR ASSISTANCE NEEDED. BEDSIDE REPORT GIVEN TO ONCOMING NURSE. 02 APPLIED AT 2L NC.
--- NOTE | 2019-06-01 19:58 | NUR ---
PT IS RESTING IN BED WITH ONE TO ONE SITTER AT BEDSIDE. RESPIRATION IS EVEN AND UNEVEN LABORED, NO DISTRESS NOTED. BED IN IN THE LOWEST POSITION, LOCKED, CHAIR ALARM ON, AND CALL LIGHT WITHIN REACH. WILL CONTINUE TO MONITOR.
[2019-06-01] MEDS: ATORVASTATIN 20 MG TAB PO SCH (22:01)
[2019-06-01] MEDS: METOPROLOL SUCCINATE 50 MG TAB XL PO SCH (22:01)
[2019-06-01] MEDS: QUETIAPINE FUMARATE 25 MG TAB PO SCH (22:01)
[2019-06-02] VITALS (7 sets, daily range): BP systolic 114–167; BP diastolic 82–109
--- NOTE | 2019-06-02 07:35 | NUR ---
walking rounds complete and patient is in bed, breathing is notably apneic and Dr. Serrano was consulted by Dr. Dover, and sitter at bedside
[2019-06-02 07:40] LABS: BASOPHILS % 0.5 % (0.0-1.0); EOSINOPHILS # (AUTO) 0.3 (0.0-0.4); EOSINOPHILS % 3.6 % (0.0-6.0); HEMATOCRIT 41.8 % (38.2-49.6); HEMOGLOBIN 13.6 g/dL (14.0-18.0); LYMPHOCYTES # (AUTO) 1.1 (1.0-3.2); LYMPHOCYTES % 15.6 % (18.0-39.1); MEAN CORPUSCULAR HEMOGLOBIN 29.4 pg (28-32); MEAN CORPUSCULAR HGB CONC 32.5 g/dL (31-35); MEAN CORPUSCULAR VOLUME 90.3 fL (81-99); MONOCYTES # (AUTO) 0.8 (0.2-0.8); MONOCYTES % 11.1 % (4.4-11.3); NEUTROPHILS % 68.8 % (38.7-80.0); PLATELET COUNT 222 x10e3/uL (140-360); RED BLOOD COUNT 4.63 x10e6/uL (4.3-5.7); RED CELL DISTRIBUTION WIDTH 13.6 % (11.7-14.4)
[2019-06-02 07:54] LABS: ANION GAP 14.9 mmol/L (8-16); CALCIUM 9.8 mg/dL (8.4-10.2); CREATININE, SERUM 1.34 mg/dL (0.72-1.25); POTASSIUM 3.9 mmol/L (3.5-5.1)
[2019-06-02] MEDS: ASPIRIN 81 MG CHEW TAB PO SCH (08:58)
[2019-06-02] MEDS: LAMOTRIGINE 100 MG TAB PO SCH ×2 (08:58→17:00)
[2019-06-02] MEDS: LOSARTAN POTASSIUM 25 MG TAB PO SCH (08:58)
[2019-06-02] MEDS: FUROSEMIDE 40 MG TAB PO SCH ×2 (08:58→17:00)
[2019-06-02] MEDS: MUPIROCIN 2% OINT 22 GM TUBE TOP SCH (08:59)
[2019-06-02] MEDS ORDERED: MUPIROCIN 2% OINT 22 GM TUBE TOP SCH (09:00)
--- NOTE | 2019-06-02 09:01 | Progress Note ---
DATE: 06/02/2019 SUBJECTIVE: The patient is a 63-year-old gentleman with a history of bipolar disease, history of chronic hypoventilation syndrome, history of CAD, history of hyperlipidemia, and history of atrial fibrillation, was usual state of health until the patient had some mental status changes, who was brought in. The patient is currently still with mental status changes, wants to go home. The patient has been very confused in the last 2 days. CURRENT MEDICATIONS: Aspirin, atorvastatin, furosemide, hydralazine as needed, lamotrigine, losartan, metoprolol, montelukast, mupirocin, and quetiapine. The patient is also on Xarelto. The patient was taking multiple medications. The does not know the frequency of the medications, came in with some ataxia. Currently sleeping with a sitter by the bedside. OBJECTIVE: VITAL SIGNS: Temperature is 97.5, pulse is 66, respirations of 19, blood pressure is 142/83, and pulse oximetry of 94%. HEENT: Normocephalic and atraumatic. Pupils are reactive. The patient is on oxygen. CVS: S1 and S2 distant. LUNGS: Decreased air entry into all lung bases. ABDOMEN: Nontender and nondistended. EXTREMITIES: No clubbing. Positive for trace edema and positive for vascular changes. LABORATORY VALUES: None done today. Yesterday's hemoglobin is 12.3 and hematocrit 38. Chemistry show a sodium of 139, BUN of 15, creatinine of 1.30. Lactic acid was 7.1. Coags were normal. IMAGING STUDIES: MRI of the brain shows no acute abnormalities when compared to brain MRI done on 02/03/2019. ASSESSMENT: 1. 63-year-old gentleman with history of bipolar disease. 2. History of morbid obesity. 3. History of sleep apnea with obesity hypoventilation syndrome, gait ataxia with gait abnormalities. The patient currently has been slowly weaned off his psychiatric medication. Psychiatric a consult has been done for his atrial fibrillation. We will continue on Xarelto. 4. Hyperlipidemia. Continue on statins for his hypoventilation syndrome. A consult with Dr. Serrano will be done. 5. Neuro consult has been stopped secondary to MRI being normal. Wean off his medications and start fresh with psychiatry. The patient also will need physical therapy and also rehabilitation as an outpatient. The patient will be transferred to SNF if possible. Further recommendation per clinical course and transfer will be dependent on psychiatric evaluation. Also consult with Pulmonology will be done for his obesity hypoventilation syndrome. The patient's has been discussed about his findings and also the need reasoning for losing weight and also for need reasoning for oxygen on constant basis has been addressed. MD JEREMY Carrasco/MODL /[id number]
--- NOTE | 2019-06-02 10:00 | NUR ---
Patient is on Bipap now, placed by RT and ABG done but is within normal limit, will transfer patient to IMCU when room available, cont with sitter for patient safety, at bedside
--- NOTE | 2019-06-02 12:00 | NUR ---
Patient is eating and taking meds but has to be constantly aroused to stay awake, never alert, only lethargic. Care taken to prevent aspiration, HOB elevated
--- NOTE | 2019-06-02 14:00 | NUR ---
The patient has been waiting for a IMCU bed, cont Bipap, SAT 100%, the patient is markedly resting better.
--- NOTE | 2019-06-02 15:02 | Consultation ---
DATE OF CONSULTATION: 06/02/2019 Pulmonary Consultation REASON FOR THE CONSULT: Obstructive sleep apnea. HISTORY OF PRESENT ILLNESS: Mr. Jackson is a 63-year-old male, who was admitted under Dr. Dover's service with complaints of altered mental status. He has a history of sleep apnea. He never smoked. He is currently arousable, but very sleepy. Denies any complaint of chest pain, nausea, or vomiting. He is on Abilify and Seroquel at home. He has history of hypothyroidism and is on long-term anticoagulation. When he came in, his ammonia level was 59, which is within normal limits. REVIEW OF SYSTEMS: GENERAL: Denies any fevers or chills. HEAD: Denies any head trauma. ENT: Denies any earaches. CVS: Denies any chest pain. RESPIRATORY: Denies any shortness of breath. The rest of the review of systems are negative except as in HPI. PAST MEDICAL HISTORY: Hypertension, hyperlipidemia, long-term anticoagulation to bipolar disorder, atrial fibrillation. PHYSICAL EXAMINATION: VITAL SIGNS: Temperature 97.5, pulse of 66, blood pressure 142/83, respiratory rate 18, and O2 saturation 99%. HEENT: Head is atraumatic, normocephalic. NECK: Supple. CHEST: Clear to auscultation bilaterally. No wheezing. HEART: S1, S2 audible. ABDOMEN: Soft. EXTREMITIES: The patient has pedal edema. NEUROLOGIC: He is sleepy, but arousable, following commands. LABORATORY DATA: White count of 7.32, hemoglobin 13.6. Chemistry; creatinine 1.34. The patient had a chest x-ray done, not showing any focal infiltrate. MEDICATIONS: The patient is on Lasix 40 mg p.o. b.i.d. ASSESSMENT AND PLAN: Mr. Jackson is a 63-year-old male, altered, high likelihood of obstructive sleep apnea, snoring, possible witnessed apnea by the per the history in the chart. PLAN: I will do ABG. Start the patient on BiPAP. Oxygen as needed to keep the O2 saturation more than or equal to 92%. The patient had a brain MRI, which is showing no acute infarct. MD EMANUEL Reyes/WESTON /[id number]
[2019-06-02 15:27] LABS: ABG HCO3 27 mmol/L (23-28); ABG PCO2 45 mmHg (41-51); ABG PH 7.39 (7.31-7.41); ABG PO2 106 mmHg (80-105)
--- NOTE | 2019-06-02 16:30 | NUR ---
Patient taking meds off mask then replaced. Eating well, at bedside and sitter is there, patient waiting for IMCU bed.
[2019-06-02] MEDS: RIVAROXABAN 10 MG TABLET PO SCH (17:00)
[2019-06-02] MEDS: MONTELUKAST SODIUM 10 MG TAB PO SCH (17:00)
--- NOTE | 2019-06-02 19:37 | NUR ---
This a 63 years old male patient here for generalized weakness and confusion, Received patient from day nurse lying in bed in no acute distress, patient is on bipap, and a 1:1 b the bed side, patient is easy to awake and alert and oriented x 2. patient is currently on list to be sent to icu and awaiting for bed, patient is on teletypesetter monitor and NSR. Patient is currently stable and will continue to monitor.
--- NOTE | 2019-06-02 19:58 | NUR ---
Walking rounds complete and patient is sleeping, sitter at bedside, at bedside. Waiting for IMCU bed.
[2019-06-02] MEDS: QUETIAPINE FUMARATE 25 MG TAB PO SCH (21:07)
[2019-06-02] MEDS: ATORVASTATIN 20 MG TAB PO SCH (21:07)
[2019-06-02] MEDS: METOPROLOL SUCCINATE 50 MG TAB XL PO SCH (21:08)
--- NOTE | 2019-06-02 21:15 | NUR ---
patient endorsed and sent to ICU [id number]
[2019-06-03] VITALS (10 sets, daily range): BP systolic 108–156; BP diastolic 65–97
[2019-06-03 05:24] LABS: BASOPHILS % 0.3 % (0.0-1.0); EOSINOPHILS # (AUTO) 0.3 (0.0-0.4); EOSINOPHILS % 4.3 % (0.0-6.0); HEMATOCRIT 42.4 % (38.2-49.6); HEMOGLOBIN 13.5 g/dL (14.0-18.0); LYMPHOCYTES # (AUTO) 1.3 (1.0-3.2); LYMPHOCYTES % 19.3 % (18.0-39.1); MEAN CORPUSCULAR HEMOGLOBIN 29.4 pg (28-32); MEAN CORPUSCULAR HGB CONC 31.8 g/dL (31-35); MEAN CORPUSCULAR VOLUME 92.4 fL (81-99); MONOCYTES # (AUTO) 0.7 (0.2-0.8); MONOCYTES % 10.6 % (4.4-11.3); NEUTROPHILS # (AUTO) 4.4 (2.1-6.9); NEUTROPHILS % 65.2 % (38.7-80.0); PLATELET COUNT 232 x10e3/uL (140-360); RED BLOOD COUNT 4.59 x10e6/uL (4.3-5.7); RED CELL DISTRIBUTION WIDTH 13.9 % (11.7-14.4)
[2019-06-03 06:08] LABS: ANION GAP 13.6 mmol/L (8-16); CALCIUM 9.4 mg/dL (8.4-10.2); CREATININE, SERUM 1.77 mg/dL (0.72-1.25); POTASSIUM 3.6 mmol/L (3.5-5.1)
--- NOTE | 2019-06-03 06:54 | Diagnostic Imaging Report ---
EXAMINATION: CHEST SINGLE (PORTABLE) INDICATION: Respiratory distress COMPARISON: Chest radiograph 05/31/2019 FINDINGS: AP view TUBES and LINES: None. LUNGS: Lungs are well inflated. Lungs are clear. Prominence of the pulmonary vascular. PLEURA: No pleural effusion or pneumothorax. HEART AND MEDIASTINUM: The cardiomediastinal silhouette is unremarkable. BONES AND SOFT TISSUES: No acute osseous lesion. Soft tissues are unremarkable. UPPER ABDOMEN: No free air under the diaphragm. IMPRESSION: Pulmonary vascular congestion. Signed by: Magdaleno Perkins DO on 06/03/2019 6:51 AM
--- NOTE | 2019-06-03 07:46 | Progress Note ---
DATE: 06/03/2019 SUBJECTIVE: A 63-year-old gentleman, who comes in with acute mental status changes, acute sleep apnea, acute respiratory failure. The patient was transferred to [facility] yesterday and was put on BiPAP for respiratory status. The patient is continuously snoring and also has difficulty breathing. The patient has been put on BiPAP by Dr. Serrano. The patient is arousable, but cannot get much words out of him. The patient has ataxia and also history of CAD. Currently, no chest pain. Positive for shortness of breath. No nausea, vomiting, or diarrhea. Eating about 20% of his food. MEDICATIONS: The patient's an active medicines are aspirin, atorvastatin, furosemide, hydralazine, losartan, metoprolol, montelukast, Naprosyn, quetiapine, and Xarelto. OBJECTIVE: VITAL SIGNS: Temperature is 98.2, pulse of 61, respirations of 19, blood pressure is 130/84. The patient is on BiPAP. HEENT: Normocephalic, atraumatic. The patient has a bullous in the neck and also a small oropharynx. HEENT otherwise normal. CVS: S1 and S2 distant. ABDOMEN: Protuberant. EXTREMITIES: Positive for trace edema. LABORATORY VALUES: From today; hemoglobin is 13.5, hematocrit of 42.4. Chemistries; sodium 132, bicarb is 29, BUN of 19, creatinine of 1.77, seen a slight increase in it. Coags; PT and INR normal. IMAGING STUDIES: Chest x-ray shows pulmonary vascular congestion, otherwise normal. ASSESSMENT: 1. A 63-year-old gentleman with history of bipolar disease. 2. History of morbid obesity. 3. History of obesity hypoventilation syndrome with severe sleep apnea. 4. History of atrial fibrillation. 5. History of hyperlipidemia. 6. Normal MRI. PLAN: Plan would be to continue monitoring his oxygen status. BiPAP on a regular basis. Discussed the case with . The wants the patient to be DNR at this time. We will keep the patient on BiPAP and move him back to [facility] and continue with his current medication. Psychiatric consult has been ordered, has not been seen yet. Further recommendation per clinical course. We will continue to monitor the patient. MD JEREMY Carrasco/MODL /[id number]
[2019-06-03] MEDS: LOSARTAN POTASSIUM 25 MG TAB PO SCH (09:00)
[2019-06-03] MEDS: FUROSEMIDE 40 MG TAB PO SCH ×2 (09:00→16:31)
[2019-06-03] MEDS: LAMOTRIGINE 100 MG TAB PO SCH ×2 (09:00→16:31)
[2019-06-03] MEDS: MONTELUKAST SODIUM 10 MG TAB PO SCH (16:31)
[2019-06-03] MEDS: RIVAROXABAN 10 MG TABLET PO SCH (16:31)
[2019-06-03] MEDS: MUPIROCIN 2% OINT 22 GM TUBE TOP SCH (16:31)
[2019-06-03] MEDS: ASPIRIN 81 MG CHEW TAB PO SCH (16:31)
[2019-06-03] MEDS ORDERED: ACETAMINOPHEN 325 MG TAB PO PRN (20:30)
[2019-06-03] MEDS: METOPROLOL SUCCINATE 50 MG TAB XL PO SCH (21:00)
[2019-06-03] MEDS: ATORVASTATIN 20 MG TAB PO SCH (21:00)
[2019-06-03] MEDS: QUETIAPINE FUMARATE 25 MG TAB PO SCH (21:00)
[2019-06-04] VITALS (13 sets, daily range): BP systolic 109–163; BP diastolic 59–94
[2019-06-04 05:04] LABS: BASOPHILS % 0.5 % (0.0-1.0); EOSINOPHILS # (AUTO) 0.5 (0.0-0.4); EOSINOPHILS % 7.1 % (0.0-6.0); HEMATOCRIT 41.9 % (38.2-49.6); HEMOGLOBIN 13.4 g/dL (14.0-18.0); LYMPHOCYTES # (AUTO) 1.6 (1.0-3.2); LYMPHOCYTES % 25.9 % (18.0-39.1); MEAN CORPUSCULAR HEMOGLOBIN 29.3 pg (28-32); MEAN CORPUSCULAR VOLUME 91.5 fL (81-99); MONOCYTES # (AUTO) 0.8 (0.2-0.8); MONOCYTES % 11.8 % (4.4-11.3); NEUTROPHILS # (AUTO) 3.5 (2.1-6.9); NEUTROPHILS % 54.5 % (38.7-80.0); PLATELET COUNT 208 x10e3/uL (140-360); RED BLOOD COUNT 4.58 x10e6/uL (4.3-5.7)
--- NOTE | 2019-06-04 07:44 | Diagnostic Imaging Report ---
EXAMINATION: CHEST SINGLE (PORTABLE) INDICATION: ^Resp Distress ^[id number] ^0600 ^Y COMPARISON: Chest radiograph 06/03/2019 FINDINGS: AP view TUBES and LINES: None. LUNGS: No lung volumes. Mild central pulmonary vascular congestion. Bibasilar atelectasis, unchanged. PLEURA: No pleural effusion or pneumothorax. HEART AND MEDIASTINUM: Stable enlargement of the cardiac silhouette. BONES AND SOFT TISSUES: No acute osseous lesion. Soft tissues are unremarkable. UPPER ABDOMEN: No free air under the diaphragm. IMPRESSION: Bilateral central pulmonary vascular congestion and bibasilar atelectasis remain stable. Signed by: Dr. Kay Dallas M.D. on 06/04/2019 7:41 AM
[2019-06-04] MEDS: FUROSEMIDE 40 MG TAB PO SCH ×2 (09:21→17:45)
[2019-06-04] MEDS: MUPIROCIN 2% OINT 22 GM TUBE TOP SCH (09:21)
[2019-06-04] MEDS: ASPIRIN 81 MG CHEW TAB PO SCH (09:21)
[2019-06-04] MEDS: LOSARTAN POTASSIUM 25 MG TAB PO SCH (09:21)
[2019-06-04] MEDS: LAMOTRIGINE 100 MG TAB PO SCH ×2 (09:21→17:45)
--- NOTE | 2019-06-04 16:06 | NUR ---
Report given to Reba SAMUELS, pt transferred to [facility] via w/c in stable condition.
[2019-06-04] MEDS ORDERED: RIVAROXABAN 15 MG TABLET PO SCH (17:00)
[2019-06-04] MEDS: MONTELUKAST SODIUM 10 MG TAB PO SCH (17:45)
--- NOTE | 2019-06-04 17:49 | NUR ---
PT TOLERATING PO, DENIES ANY PAIN , VOICES NO NEEDS AT THIS TIME, PT DISCUSSED "CHANGING HIS TIME FOR LASIX" , EMAR NOTED
--- NOTE | 2019-06-04 19:10 | NUR ---
received aaox3, resting in bed, resp even and unlabored. no needs voiced at this time bed locked and in lowest position, call light within reach.
[2019-06-04] MEDS: METOPROLOL SUCCINATE 50 MG TAB XL PO SCH (21:35)
[2019-06-04] MEDS: QUETIAPINE FUMARATE 25 MG TAB PO SCH (21:35)
[2019-06-04] MEDS: ATORVASTATIN 20 MG TAB PO SCH (21:35)
[2019-06-05 04:00] VITALS: BP 177/79
[2019-06-05] MEDS ORDERED: FUROSEMIDE 40 MG TAB PO SCH (06:00)
[2019-06-05] MEDS: HYDRALAZINE HCL 20 MG/ML VIAL IV PRN (06:21)
--- NOTE | 2019-06-05 07:30 | NUR ---
MD AGUIRRE INTO SEE PT, DISCUSSED DISCHARGE INSTRUCTIONS, PT TO BE DISCHARGED AFTER BREAKFAST, PT VERBALIZED UNDERSTANDING
[2019-06-05 08:13] VITALS: BP 128/72
[2019-06-05] MEDS: MUPIROCIN 2% OINT 22 GM TUBE TOP SCH (08:36)
[2019-06-05] MEDS: LAMOTRIGINE 100 MG TAB PO SCH (08:36)
[2019-06-05] MEDS: LOSARTAN POTASSIUM 25 MG TAB PO SCH (08:36)
[2019-06-05] MEDS: ASPIRIN 81 MG CHEW TAB PO SCH (08:36)
--- NOTE | 2019-06-05 08:42 | NUR ---
PT SITTING IN BS CHAIR, RAISING VOICE REGARDING "WHERE IS BREAKFAST", EDUCATED PT THAT CART IS ON THE CHUN, TRAYS ARE BEING PASSED OUT, CALL LIGHT WITHIN REACH, PCT BROUGHT TRAY INTO PT ROOM
--- NOTE | 2019-06-05 09:36 | NUR ---
PT RAISING VOICE, STATES HE HAS BEEN WAITING 2 HOURS SINCE HE "ATE HIS BREAKFAST TO BE DISCHARGED", EDUCATED PT THAT HIS BREAKFAST DID NOT ARRIVE UNTIL AFTER 840AM AND HE WAS TO CALL WHEN DONE, PT RAISING VOICE AGAIN, "I JUST WANT TO GO HOME", DISCHARGE INSTRUCTIONS REVIEWED WITH PT, VERBALIZED UNDERSTANDING
== END 2019-06-05 09:36 | disposition home or self-care (01) | DRG 91 ==
LOC: ER 11:04 → ERHOLD 16:21 → MED/SURG3 19:59 → ICU 06-02 22:10 → MED/SURG 06-04 16:01
PROVIDERS: ADMIT Family Medicine; ATTEND Family Medicine
PROC: 5A09357 Assistance with Respiratory Ventilation, Less than 24 Consecutive Hours, Continuous Positive Airway Pressure (ICD-10-PCS; principal; 2019-06-03)
DX: G93.1 Anoxic brain damage, not elsewhere classified (principal); J96.00 Acute respiratory failure, unspecified whether with hypoxia or hypercapnia; E66.2 Morbid (severe) obesity with alveolar hypoventilation; Z68.41 Body mass index [BMI] 40.0-44.9, adult; R27.0 Ataxia, unspecified; R41.82 Altered mental status, unspecified; R42 Dizziness and giddiness; N28.9 Disorder of kidney and ureter, unspecified; J44.9 Chronic obstructive pulmonary disease, unspecified; I48.91 Unspecified atrial fibrillation; F31.9 Bipolar disorder, unspecified; I12.9 Hypertensive chronic kidney disease with stage 1 through stage 4 chronic kidney disease, or unspecified chronic kidney disease; N18.3 Chronic kidney disease, stage 3 (moderate); D64.9 Anemia, unspecified; E78.5 Hyperlipidemia, unspecified; Z66 Do not resuscitate
CPT/HCPCS: 36415; 36600; 70450; 70551; 71045; 80048; 80053; 80061; 81001; 82140; 82550; 82553; 82805; 83605; 83690; 83735; 83880; 84100; 84443; 84484; 85025; 85610; 85730; 87040; 87086; 93005; 94660; 99284; J0360; J7030

== ENCOUNTER 2019-07-30 07:35 | Emergency (ER) | payer MEDICARE ==
[~2019-07-30] VITALS: Ht 177.8 cm; Wt 133.4 kg
[~2019-07-30 07:35] MED LIST changes: +BENZONATATE100 MG; +CARVEDILOL12.5 MG; +METOPROLOL SUC100 MG; +VENLAFAXINE HC150 MG
[2019-07-30] MEDS ORDERED: TRAZODONE HCL50 MG PO (07:54)
[2019-07-30] MEDS ORDERED: METHOCARBAMOL750 MG PO (07:54)
[2019-07-30 08:02] LABS: ABG PCO2 36 mmHg (41-51); ABG PO2 74 mmHg (80-105)
[2019-07-30 08:03] LABS: ABG HCO3 22 mmol/L (23-28)
[2019-07-30 08:03] LABS: BASOPHILS % 0.5 % (0.0-1.0); EOSINOPHILS # (AUTO) 0.2 (0.0-0.4); EOSINOPHILS % 3.1 % (0.0-6.0); HEMATOCRIT 41.3 % (38.2-49.6); HEMOGLOBIN 13.2 g/dL (14.0-18.0); LYMPHOCYTES # (AUTO) 1.5 (1.0-3.2); LYMPHOCYTES % 22.6 % (18.0-39.1); MEAN CORPUSCULAR HEMOGLOBIN 29.3 pg (28-32); MEAN CORPUSCULAR VOLUME 91.6 fL (81-99); MONOCYTES # (AUTO) 0.6 (0.2-0.8); MONOCYTES % 9.7 % (4.4-11.3); NEUTROPHILS # (AUTO) 4.1 (2.1-6.9); NEUTROPHILS % 63.9 % (38.7-80.0); PLATELET COUNT 216 x10e3/uL (140-360); RED BLOOD COUNT 4.51 x10e6/uL (4.3-5.7)
[2019-07-30 08:17] LABS: ALANINE AMINOTRANSFERASE 14 IU/L (0-55); ALBUMIN 3.5 g/dL (3.5-5.0); ALKALINE PHOSPHATASE 94 IU/L (40-150); ANION GAP 11.5 mmol/L (8-16); BLOOD UREA NITROGEN 21 mg/dL (7-26); BUN/CREATININE RATIO 14 (6-25); CALCIUM 9.5 mg/dL (8.4-10.2); CARBON DIOXIDE 28 mmol/L (22-29); CHLORIDE 107 mmol/L (98-107); CREATINE KINASE 101 IU/L (30-200); CREATININE, SERUM 1.48 mg/dL (0.72-1.25); EST GLOMERULAR FILTRATION RATE 48 ML/MIN (60-); GLUCOSE 102 mg/dL (74-118); POTASSIUM 4.5 mmol/L (3.5-5.1); SODIUM 142 mmol/L (136-145)
--- NOTE | 2019-07-30 09:05 | Diagnostic Imaging Report ---
EXAMINATION: CHEST SINGLE (PORTABLE) INDICATION: ^hypoxia ^[id number] ^0830 COMPARISON: 06/04/2019 FINDINGS: AP view TUBES and LINES: None. LUNGS: Limited by body habitus, slight rotation, and low lung volumes. Mild central vascular congestion. No definite focal consolidation. PLEURA: No pleural effusion or pneumothorax. HEART AND MEDIASTINUM: The cardiomediastinal silhouette is enlarged on this AP view. BONES AND SOFT TISSUES: No acute osseous lesion. Soft tissues are unremarkable. UPPER ABDOMEN: No free air under the diaphragm. IMPRESSION: Limited as above. Enlarged cardiomediastinal silhouette and mild central vascular congestion. No definite focal consolidation. Signed by: Dr. Alonso Holloway MD on 07/30/2019 9:01 AM
[2019-07-30 09:24] VITALS: BP 119/77
== END 2019-07-30 09:33 | disposition home or self-care (01) ==
LOC: ER 07:39
DX: R06.00 Dyspnea, unspecified (principal); G47.33 Obstructive sleep apnea (adult) (pediatric)
CPT/HCPCS: 36415; 36600; 71045; 80053; 82550; 82553; 82805; 84484; 85025; 93005; 99284

== ENCOUNTER 2020-06-21 11:33 | Emergency (ER) | payer MEDICARE ==
[~2020-06-21] VITALS: Ht 177.8 cm; Wt 133.4 kg
[~2020-06-21 11:33] MED LIST changes: +METHOCARBAMOL750 MG PO; +TRAZODONE HCL50 MG PO
--- NOTE | 2020-06-21 12:08 | Emergency Department Note ---
History of Present Illnes History of Present Illness Chief Complaint: General Medicine Complaints History of Present Illness This is a 64 year old male PT FROM HOME, PT LAYS IN BED ALL DAY WATCHING TV (PER PT), HOME HEALTH "NURSE" CALLED 911 BECAUSE WHEN SHE COMES OVER TO SEE PT AND HIS , THE PT USUALLY WANTS TO GET UP OUT OF BED. TODAY, PT SAID HE DIDN'T WANT TO GET UP, AND WANTED TO WATCH TV, SO "NURSE" CALLED 911 AND PER EMS, SHE LEFT RAPIDLY. PT HAS NO COMPLAINTS AT ALL. PT AAOX4. NO DISTRESS NOTED. PATIENT HAS NO COMPLAINTS . Historian: Patient, Road Mender/EMS Arrival Mode: [facility] Treatment DIRECTOR RIVER RESTORATION: See EMS Report Biofuels Manager Required: No Location: NO COMPLAINTS Radiation: Reports non-radiation Severity: mild Context: Denies recent illness Relieving factors: none Exacerbating factors: none Associated symptoms: Reports denies other symptoms; Denies chest pain, Denies cough, Denies fever/chills, Denies nausea/vomiting, Denies shortness of breath Past Medical/Family History Physician Review I have reviewed the patient's past medical and family history. Any updates have been documented here. Past Medical History Recent Fever: No Clinical Suspicion of Infectio: No New/Unexplained Change in Ment: No Past Medical History: Hypertension, COPD, CHF Other Medical History: bipolar, CPAP AT HOME MORBID OBESITY Past Surgical History: T&A Other Surgery: tonsil and adenoid removal Social History Smoking Cessation: Former smoker Counseling Performed: No Alcohol Use: None Any Illegal Drug Use: No TB Exposure/Symptoms: No Physically hurt or threatened: No Family History Family history of heart diseas: No Other Last Tetanus: UNKNOWN Any Pre-Existing Lines (PICC,: No Review of Systems Review of Systems Constitutional: Reports no symptoms EENTM: Reports no symptoms Cardiovascular: Reports no symptoms Respiratory: Reports no symptoms Gastrointestinal: Reports no symptoms Genitourinary: Reports no symptoms Musculoskeletal: Reports no symptoms Integumentary: Reports no symptoms Neurological: Reports no symptoms Psychological: Reports no symptoms Endocrine: Reports no symptoms Hematological/Lymphatic: Reports no symptoms Physical Exam Related Data Allergies: Coded Allergies: No Known Drug Allergies (Verified Allergy, Mild, 07/30/19) Triage Vital Signs Vital Signs Date Time Temp Pulse Resp B/P (MAP) Pulse Ox O2 Delivery O2 Flow Rate FiO2 06/21/20 11:36 98.4 66 16 146/77 97 Room Air Vital signs reviewed: Yes Physical Exam CONSTITUTIONAL Constitutional: Present well-developed, Present well-nourished, Present obese, Present morbidly obese HENT HENT: Present normocephalic, Present atraumatic, Present oropharynx clear/moist, Present nose normal HENT L/R: Present left ext ear normal, Present right ext ear normal EYES Eyes: Reports PERRL, Reports conjunctivae normal NECK Neck: Present ROM normal PULMONARY Pulmonary: Present effort normal, Present breath sounds normal CARDIOVASCULAR Cardiovascular: Present regular rhythm, Present heart sounds normal, Present capillary refill normal, Present normal rate GASTROINTESTINAL Abdominal: Present soft, Present nontender, Present bowel sounds normal GENITOURINARY Genitourinary: Present exam deferred SKIN Skin: Present warm, Present dry MUSCULOSKELETAL Musculoskeletal: Present ROM normal NEUROLOGICAL Neurological: Present alert, Present oriented x 3, Present no gross motor or sensory deficits; Absent DTRs normal, Absent cranial nerve deficit, Absent sensory deficit, Absent abnormal coordination, Absent abnormal gait, Absent weakness PSYCHOLOGICAL Psychological: Present mood/affect normal, Present judgement normal Assessment & Plan Medical Decision Making MDM NO EMERGENCY, PATIENT WANTS TO GO HOME Reassessment Reassessment D/W DR BAIG, PCP - SAYS PT CAN GO HOME WITHOUT AND LAB/RADIOLOGY STUDIES DONE IN ER Assessment & Plan Final Impression: (1) Obesity Depart Disposition: HOME, SELF-CARE Last Vital Signs Date Time Temp Pulse Resp B/P (MAP) Pulse Ox O2 Delivery O2 Flow Rate FiO2 06/21/20 11:36 98.4 66 16 146/77 97 Room Air Home Meds Reported Medications Methocarbamol (METHOCARBAMOL) 750 Mg Tablet, 500 MG PO Q12H, #30 TAB 07/30/19 Trazodone Hcl (TRAZODONE HCL) 50 Mg Tablet, 50 MG PO HS PRN for SLEEP TAKE 3 TABLETS BY MOUTH AT BEDTIME NEEDED. 07/30/19 Lamotrigine (LAMOTRIGINE) 100 Mg Tablet, 100 MG PO BID, #30 TAB 09/13/18 Venlafaxine Hcl (VENLAFAXINE HCL ER) 75 Mg Tab.er.24, 150 MG PO TID 09/13/18 Furosemide (LASIX) 40 Mg Tablet, 40 MG PO DAILY, #30 TAB 05/28/18 Metoprolol Succinate (METOPROLOL SUCCINATE) 50 Mg Tab.er.24h, 100 MG PO HS, MG 05/28/18 Montelukast Sodium (MONTELUKAST SODIUM) 10 Mg Tablet, 10 MG PO DAILY, #30 TAB 05/24/18 Atorvastatin Calcium (ATORVASTATIN CALCIUM) 20 Mg Tablet, 20 MG PO HS, #30 TAB 05/24/18 Losartan Potassium (LOSARTAN POTASSIUM) 25 Mg Tablet, 25 MG PO DAILY 05/24/18 Carvedilol (COREG) 12.5 Mg Tab, 12.5 MG PO BID 03/21/13 DEE VELASQUEZ MD Jun 21, 2020 12:08
--- OUTSIDE RECORDS SUMMARY | 2020-06-21 12:11 | XMS REPORT | Continuity of Care Document ---
Author Author [facility] Organization [facility] Address [address] [place] [address] Phone Unavailable Care Team Providers Care Micro Paleontologist Name Role Phone Rony BAIG MD PCP GENNY RAMOS Attphys Unavailable Rony BAIG Attphys Unavailable Rony BAIG Admphyrony Unavailable Payers Payer Name Policy Type Policy Number Effective Date Expiration Date Rony wahl [employer] Medicare Replacement [id number] 2018 00:00:00 [facility] [id number] 2012 00:00:00 [facility] Problems Condition Name Condition Details Condition Category Status Onset Date Resolution Date Last Treatment Date Treating Clinician Comments Source Congestive heart failure CHF (congestive heart failure) Problem Active [facility] New onset atrial fibrillation New onset atrial fibrillation Problem Active [facility] Chronic obstructive pulmonary disease COPD (chronic ob structive pulmonary disease) Problem Active [facility] Ataxia Ataxia Problem Active [facility] Obesity Obesity Problem Active [facility] Weakness Weakness Problem Active [facility] Allergies, Adverse Reactions, Alerts This patient has no known allergies or adverse reactions. Medications Ordered Medication Name Filled Medication Name Start Date Stop Da te Current Medication? Ordering Clinician Indication Dosage Frequency Signature (SIG) Comments Components Source Atorvastatin Calcium 20 Mg Tablet Atorvastatin Calcium 20 Mg Tablet Yes 20 Bedtime [facility] Carvedilol (Coreg) 12.5 Mg Tab Carvedilol (Coreg) 12.5 Mg Tab Yes 12.5 Twice A Day [facility] Furosemide (Lasix) 40 Mg Tablet Furosemide (Lasix) 40 Mg Tablet Yes 40 Daily [facility] Lamotrigine 100 Mg Tablet Lamotrigine 100 Mg Tablet Yes 100 Twice A Day [facility] Losartan Potassium 25 Mg Tablet Losartan Potassium 25 Mg Tablet Yes 25 Daily [facility] Methocarbamol 750 Mg Tablet Methocarbamol 750 Mg Tablet Yes 500 Every 12 Hours [facility] Metoprolol Succinate 50 Mg Tab.er.24h Metoprolol Succinate 50 Mg Ta b.er.24h Yes 100 Bedtime [facility] Montelukast Sodium 10 Mg Tablet Montelukast Sodium 10 Mg Tablet Yes 10 Daily [facility] Trazodone Hcl 50 Mg Tablet Trazodone Hcl 50 Mg Tablet Yes 50 Bedtime as needed for Sleep [facility] Venlafaxine Hcl (Venlafaxine Hcl Er) 75 Mg Tab.er.24 V enlafaxine Hcl (Venlafaxine Hcl Er) 75 Mg Tab.er.24 Yes 150 T hree Times A Day [facility] Aripiprazole (Abilify) 5 Mg Tablet, 15 Mg Oral Aripipr azole (Abilify) 5 Mg Tablet, 15 Mg Oral 2019-07-30 00:00:00 No 15 Three Times A Day [facility] Aspirin 81 Mg Tab.chew, 81 Mg Oral Aspirin 81 Mg Tab.chew, 81 Mg Oral 2019-07-30 00:00:00 No 81 Daily [facility] Benzonatate 100 Mg Capsule, Benzonatate 100 Mg Capsule, 2019-07-30 00:00:00 No [facility] Carvedilol 12.5 Mg Tablet, Carvedilol 12.5 Mg Tablet, 2018 00:00:00 No [facility] Lamotrigine 100 Mg Tablet, 50 Mg Oral Lamotrigine 100 Mg Tablet, 50 Mg Oral 2019-07-30 00:00:00 No 50 Twice A Day [facility] Metoprolol Succinate 100 Mg Tab.er.24h, Metoprolol Succinate 100 Mg Tab.er.24h, 2019-07-30 00:00:00 No [facility] Quetiapine Fumarate (Seroquel) 25 Mg Tablet, 50 Mg Ora l Quetiapine Fumarate (Seroquel) 25 Mg Tablet, 50 Mg Oral 2019-07-30 00:00:00 No 50 Bedtime [facility] Rivaroxaban (Xarelto) 10 Mg Tablet, 15 Mg Oral Rivarox aban (Xarelto) 10 Mg Tablet, 15 Mg Oral 2019-07-30 00:00:00 No 15 Daily [facility] Buspirone Hcl 30 Mg Tablet, 30 Mg Oral Buspirone Hcl 30 Mg Table t, 30 Mg Oral 2019-06-05 00:00:00 No 30 Three Times A Day [facility] Venlafaxine Hcl (Venlafaxine Hcl Er) 150 Mg Cap.er.24h , Venlafaxine Hcl (Venlafaxine Hcl Er) 150 Mg Cap.er.24h, 2019-06-05 00:00:00 No [facility] Mirtazapine 15 Mg Tab, 15 Mg Oral Mirtazapine 15 Mg Tab, 15 Mg O ral 2019-05-31 00:00:00 No 15 Bedtime [facility] Mirtazapine 15 Mg Tab, 7.5 Mg Oral Mirtazapine 15 Mg Tab, 7.5 Mg Oral 2019-05-31 00:00:00 No 7.5 Bedtime [facility] Venlafaxine Hcl (Venlafaxine Hcl Er) 150 Mg Tab.er.24, 150 Mg Oral Venlafaxine Hcl (Venlafaxine Hcl Er) 150 Mg Tab.er.24, 150 Mg Oral 2019-05-22 0 00:00:00 No 150 Three Times A Day [facility] Colesevelam Hcl (Welchol) 625 Mg Tablet, 625 Mg Oral C olesevelam Hcl (Welchol) 625 Mg Tablet, 625 Mg Oral 2018-05-24 00:00:00 No 625 Daily [facility] Divalproex Sodium (Divalproex Sodium Er) 500 Mg Tab.er .24h, 1500 Mg Oral Divalproex Sodium (Divalproex Sodium Er) 500 Mg Tab.er.24h, 1500 Mg Oral 2018-05-24 00:00:00 No 1500 Bedtime [facility] Lisinopril (Zestril*) 20 Mg Tablet, 20 Mg Oral Lisinop ril (Zestril*) 20 Mg Tablet, 20 Mg Oral 2018-05-24 00:00:00 No 20 Daily [facility] Pantoprazole Sodium (Protonix) 40 Mg Tablet.dr, 40 Mg Oral Pantoprazole Sodium (Protonix) 40 Mg Tablet.dr, 40 Mg Oral 2018-05-24 00:00:00 No 40 Daily [facility] Sucralfate (Carafate) 1 Gm Tablet, 1 Tab Oral Sucralfa te (Carafate) 1 Gm Tablet, 1 Tab Oral 2018-05-24 00:00:00 No 1 Before Meals And At Bedtime [facility] Tramadol Hcl (Ultram) 50 Mg Tablet, 50 Mg Oral Tramado l Hcl (Ultram) 50 Mg Tablet, 50 Mg Oral 2018-05-24 00:00:00 No 50 Q 6HR S Prn [facility] Procedures Procedure Date / Time Performed Performing Clinician Sour e ASSISTANCE WITH RESPIRATORY VENTILATION, <24 HRS, CPAP 06-03 00:00:00 LORENZO ZAVALA [facility] Computed tomography of brain without radiopaque contrast 201 05-30-10 00:00:00 FRIONA BESSY [facility] Magnetic resonance imaging of brain without contrast 2019-05 00:00:00 FRIONA BESSY [facility] Magnetic resonance imaging of brain without contrast 2019-01 00:00:00 MANOHAR BAIG [facility] Encounters Start Date/Time End Date/Time Encounter Type Admission Type Attendi [facility] Facility Care Department Encounter ID Source 2019-07-30 07:39:00 2019-07-30 09:33:00 Departed Emergency Room 1 GENNY RAMOS [facility] [id number] [facility] 2019-05-31 16:21:00 2019-06-05 09:36:00 Discharged Inpatient 1 MANOHAR BAIG [facility] [id number] [facility] 2019-02-03 11:07:00 2019-02-03 11:07:00 Registered Clinic 3 MANOHAR BAIG [facility] [id number] [facility] 2018-09-13 10:11:00 2018-09-15 10:22:00 [id number] 2018-05-24 09:02:00 2018-05-28 13:15:00 [id number] Results Test Description Test Time Test Comments Results Result Comments Source CHEST SINGLE (PORTABLE) 2019-07-30 09:00:00 [place] [address] Patient Name: MADDY FRAIRE MR #: [id number] : 1955 Age/Sex: 63/M Req #: [id number] Adm Physician: Ordered by: GENNY RAMOS DO Report #: [id number] Location: ER Room/Bed: Procedure: [id number] DX/CHEST SINGLE (PORTABLE) Exam Date: 07/30/19 Exam Time: 829 REPORT STATUS: Signed EXAMINATION: CHEST SINGLE (PORTABLE) INDICATION: hypoxia [id number] COMPARISON: 06/04/2019 FINDINGS: AP view TUBES and LINES: None. LUNGS: Limited by body habitus, slight rotation, and low lung volumes. Mild central vascular congestion. No definite focal consolidation. PLEURA: No pleural effusion or pneumothorax. HEART AND MEDIASTINUM: The cardiomediastinal silhouette is enlarged on this AP view. BONES AND SOFT TISSUES: No acute osseous lesion. Soft tissues are unremarkable. UPPER ABDOMEN: No free air under the diaphragm. IMPRESSION: Bina becker as above. Enlarged cardiomediastinal silhouette and mild central vascular congestion. No definite focal consolidation. Signed by: Dr. Alonso Samuel MD on 07/30/2019 9:01 AM Dictated By: ALONSO SAMUEL MD 0 Transcribed By: AMILCAR on 07/30/19900 COPY TO: GENNY RAMOS DO Creatine Kinase MB 2019-07-30 08:24:00 Test Item Creatine Kinase MB (test code = 07927-5) 0.90 0-5.0 [facility]roponin [id number] 08:24:00* Test Item Value Reference Range Interpretation Comments Troponin I (test code = VRF6664) < 0.001 0-0.300 [facility] Udenv8153-94-70 08:21:00* Test Item Value Reference Range Interpretation Comments Sodium Level (test code = 2951-2) 142 136-145 [facility]Potassium Uzodf3181-51-11 08:21:00* Test Item Value Reference Range Interpretation Comments Potassium Level (test code = 2823-3) 4.5 3.5-5.1 [facility] HospitalChloride Czekx6463-77-98 08:21:00* Test Item Value Reference Range Interpretation Comments Chloride Level (test code = 2075-0) 107 98-107 [facility] HospitalCarbon Dioxide [id number] 08:21:00* Test Item Value Reference Range Interpretation Comments Carbon Dioxide Level (test code = 2028-9) 28 22-29 [facility] HospitalAnion Lxh6497-27-51 08:21:00* Test Item Value Reference Range Interpretation Comments Anion Gap (test code = 80173-0) 11.5 8-16 [facility] HospitalBlood Urea Fbttmywz8140-66-60 08:21:00* Test Item Value Reference Range Interpretation Comments Blood Urea Nitrogen (test code = 3094-0) 21 7-26 [facility] HospitalCreatinine2019-11-09 08:21:00* Test Item Value Reference Range Interpretation Comments Creatinine (test code = 2160-0) 1.48 0.72-1.25 H [facility] HospitalBUN/Creatinine Egxyg1917-05-05 08:21:00* Test Item Value Reference Range Interpretation Comments BUN/Creatinine Ratio (test code = 3097-3) 14 6-25 [facility] HospitalEstimat Glomerular Filtration Rate 2019-07-30 08:21:00* Test Item Value Reference Range Interpretation Comments Estimat Glomerular Filtration Rate (test code = 991727206) 48 >60 L Ranges were taken from the National Kidney Disease Education Program and the [facility] literature.Reference ranges:60 or greater: Fxhyjn08-67 ( for 3 consecutive months): Chronic kidney disease 15 or less: Kidney failureEl Campo Memorial HospitalGlucose Erwav3527-74-59 08:21:00* Test Item Value Reference Range Interpretation Comments Glucose Level (test code = HZH5853) 102 74-118 [facility] HospitalCalcium Nlioz7304-62-99 08:21:00* Test Item Value Reference Range Interpretation Comments Calcium Level (test code = 96860-5) 9.5 8.4-10.2 [facility] HospitalTotal Pvfdopkyc7019-97-07 08:21:00* Test Item Value Reference Range Interpretation Comments Total Bilirubin (test code = 1975-2) 0.3 0.2-1.2 [facility] HospitalAspartate Amino Transf (AST/SGOT) 2019-07-30 08:21:00* Test Item Value Reference Range Interpretation Comments Aspartate Amino Transf (AST/SGOT) (test code = Aspartate Amino Transf (AST/SGOT)) 16 5-34 [facility] HospitalAlanine Aminotransferase (ALT/SGPT) 2019-07-30 08:21:00* Test Item Value Reference Range Interpretation Comments Alanine Aminotransferase (ALT/SGPT) (test code = 1742-6) 14 0-55 [facility] HospitalTotal Zqvvfbq2684-91-48 08:21:00* Test Item Value Reference Range Interpretation Comments Total Protein (test code = 2885-2) 6.9 6.5-8.1 [facility] HospitalAlbumin2019-11-09 08:21:00* Test Item Value Reference Range Interpretation Comments Albumin (test code = 1751-7) 3.5 3.5-5.0 [facility] HospitalGlobulin2019-11-09 08:21:00* Test Item Value Reference Range Interpretation Comments Globulin (test code = 21669-1) 3.4 2.3-3.5 [facility] HospitalAlbumin/Globulin Mbbfg1668-17-25 08:21:00 * Test Item Value Reference Range Interpretation Comments Albumin/Globulin Ratio (test code = 1759-0) 1.0 0.8-2.0 [facility] HospitalAlkaline Zxkxsvtrzvo1938-05-18 08:21:00* Test Item Value Reference Range Interpretation Comments Alkaline Phosphatase (test code = 6768-6) 94 40-150 [facility] HospitalCreatine Qhzqea6366-39-78 08:21:00* Test Item Value Reference Range Interpretation Comments Creatine Kinase (test code = 2157-6) 101 30-200 [facility] HospitalWhite Blood Ohyio0856-58-47 08:10:00* Test Item Value Reference Range Interpretation Comments White Blood Count (test code = 6690-2) 6.41 4.8-10.8 [facility] HospitalRed Blood Rlepe4065-63-30 08:10:00* Test Item Value Reference Range Interpretation Comments Red Blood Count (test code = 789-8) 4.51 4.3-5.7 [facility] HospitalHemoglobin2019-11-09 08:10:00* Test Item Value Reference Range Interpretation Comments Hemoglobin (test code = 97799-9) 13.2 14.0-18.0 L [facility] HospitalHematocrit2019-11-09 08:10:00* Test Item Value Reference Range Interpretation Comments Hematocrit (test code = 4544-3) 41.3 38.2-49.6 [facility] HospitalMean Corpuscular Hfzwbe1713-02-34 08:10:00* Test Item Value Reference Range Interpretation Comments Mean Corpuscular Volume (test code = 787-2) 91.6 81-99 [facility] HospitalMean Corpuscular Ussxenrwou1494-52-18 08:10:00* Test Item Value Reference Range Interpretation Comments Mean Corpuscular Hemoglobin (test code = 785-6) 29.3 28-32 [facility] HospitalMean Corpuscular Hemoglobin Concent 2019-07-30 08:10:00* Test Item Value Reference Range Interpretation Comments Mean Corpuscular Hemoglobin Concent (test code = 786-4) 32.0 31-35 [facility] HospitalRed Cell Distribution Xzybz5668-93-00 08:10:00* Test Item Value Reference Range Interpretation Comments Red Cell Distribution Width (test code = 68220-7) 14.0 11.7 -14.4 [facility] HospitalPlatelet Wunym3462-80-84 08:10:00* Test Item Value Reference Range Interpretation Comments Platelet Count (test code = 777-3) 216 140-360 [facility] HospitalNeutrophils (%) (Auto)2019-07-30 08:10:00 * Test Item Value Reference Range Interpretation Comments Neutrophils (%) (Auto) (test code = 91342-0) 63.9 38.7-80.0 [facility] HospitalLymphocytes (%) (Auto)2019-07-30 08:10:00 * Test Item Value Reference Range Interpretation Comments Lymphocytes (%) (Auto) (test code = 736-9) 22.6 18.0-39.1 [facility] HospitalMonocytes (%) (Auto)2019-07-30 08:10:00* Test Item Value Reference Range Interpretation Comments Monocytes (%) (Auto) (test code = 5905-5) 9.7 4.4-11.3 [facility] HospitalEosinophils (%) (Auto)2019-07-30 08:10:00 * Test Item Value Reference Range Interpretation Comments Eosinophils (%) (Auto) (test code = 713-8) 3.1 0.0-6.0 [facility] HospitalBasophils (%) (Auto)2019-07-30 08:10:00* Test Item Value Reference Range Interpretation Comments Basophils (%) (Auto) (test code = 706-2) 0.5 0.0-1.0 [facility] HospitalIM GRANULOCYTES %2019-07-30 08:10:00* Test Item Value Reference Range Interpretation Comments IM GRANULOCYTES % (test code = IM GRANULOCYTES %) 0.2 0.0- 1.0 [facility] HospitalNeutrophils # (Auto)2019-07-30 08:10:00* Test Item Value Reference Range Interpretation Comments Neutrophils # (Auto) (test code = 751-8) 4.1 2.1-6.9 [facility] HospitalLymphocytes # (Auto)2019-07-30 08:10:00* Test Item Value Reference Range Interpretation Comments Lymphocytes # (Auto) (test code = 40367-3) 1.5 1.0-3.2 [facility] HospitalMonocytes # (Auto)2019-07-30 08:10:00* Test Item Value Reference Range Interpretation Comments Monocytes # (Auto) (test code = 742-7) 0.6 0.2-0.8 [facility] HospitalEosinophils # (Auto)2019-07-30 08:10:00* Test Item Value Reference Range Interpretation Comments Eosinophils # (Auto) (test code = 711-2) 0.2 0.0-0.4 [facility] HospitalBasophils # (Auto)2019-07-30 08:10:00* Test Item Value Reference Range Interpretation Comments Basophils # (Auto) (test code = 704-7) 0.0 0.0-0.1 [facility] HospitalAbsolute Immature Granulocyte (auto 2019-07-30 08:10:00* Test Item Value Reference Range Interpretation Comments Absolute Immature Granulocyte (auto (alba t code = Absolute Immature Granulocyte (auto) 0.01 0-0.1 [facility] HospitalArterial Blood uL6167-93-87 08:04:00* Test Item Value Reference Range Interpretation Comments Arterial Blood pH (test code = 2744-1) 7.40 7.31-7.41 [facility] HospitalArterial Blood Partial Pressure CO2 2019-07-30 08:04:00* Test Item Value Reference Range Interpretation Comments Arterial Blood Partial Pressure CO2 (test code = 2019-04) 36 41-51 L [facility] HospitalArterial Blood Partial Pressure O2 2019-07-30 08:04:00* Test Item Value Reference Range Interpretation Comments Arterial Blood Partial Pressure O2 (test code = 2019-04) 74 80-105 L [facility] HospitalArterial Blood [id number] 08:04:00* Test Item Value Reference Range Interpretation Comments Arterial Blood HCO3 (test code = 1960-4) 22 23-28 L [facility] HospitalArterial Blood Base Rtekyx1151-81-36 08:04:00* Test Item Value Reference Range Interpretation Comments Arterial Blood Base Excess (test code = 1925-7) -2.0 -2-3 [facility] HospitalArterial Blood Oxygen Saturation 2019-07-30 08:04:00* Test Item Value Reference Range Interpretation Comments Arterial Blood Oxygen Saturation (test code = 2708-6) 95.0 95-98 [facility] HospitalFiO22019-11-09 08:04:00* Test Item Value Reference Range Interpretation Comments FiO2 (test code = FiO2) 21 OT ON ROOM AIR,RESULT HANDED TO DR GREENE AT 0755.CRITICAL VALUES WILL READ BACK AND VERIFIED WITH PHYSICIAN.[facility] HospitalBlood Culture 2019-06-05 12:23:00* Test Item Value Reference Range Interpretation Comments Blood Culture (test code = 10003016) NO GROWTH AFTER 5 DAYS, FINAL REPORT [facility] HospitalCHES SINGLE (PORTABLE)2019-06-04 07:39:00 [place] [address] Patient Name: MADDY FRAIRE MR #: [id number] : 1955 Age/Sex: 63/M Req #: [id number] Adm Physician: MANOHAR BAIG MD Ordered by: LORENZO ZAVALA MD Report #: [id number] Location: ICU Room/Bed: ICU [facility] Procedure: DX/CHEST SINGLE (PORTABLE) Exam Date: 06/04/19 Exam Time: 06 REPORT STATUS: S igned EXAMINATION: CHEST SINGLE (PORTABLE) INDICATION: Re sp Distress [id number] Y COMPARISON: Chest radiograph 06/03 FINDINGS: AP view TUBES and LINES: None. LUNGS: No lung volumes. Mild central pulmonary vascular congestion. Bibasilar atel ectasis, unchanged. PLEURA: No pleural effusion or pneumothorax. HEAR T AND MEDIASTINUM: Stable enlargement of the cardiac silhouette. BONES A ND SOFT TISSUES: No acute osseous lesion. Soft tissues are unremarkable. UPPER ABDOMEN: No free air under the diaphragm. IMPRESSION: Bilate ral central pulmonary vascular congestion and bibasilar atelectasis remain sta ble. Signed by: Dr. Kay Dallas M.D. on 06/04/2019 7:41 AM Dictated By: KAY DALLAS MD 0 Transcribed By: AMILCAR on 06/04/19740 COPY TO: LORENZO ZAVALA MD White Blood Iijtg3088-33-01 05:11:00* Test Item Value Reference Range Interpretation Comments White Blood Count (test code = 6690-2) 6.33 4.8-10.8 [facility] HospitalRed Blood Lyrvy9543-86-98 05:11:00* Test Item Value Reference Range Interpretation Comments Red Blood Count (test code = 789-8) 4.58 4.3-5.7 [facility] HospitalHemoglobin2019-09-14 05:11:00* Test Item Value Reference Range Interpretation Comments Hemoglobin (test code = 09015-0) 13.4 14.0-18.0 L [facility] HospitalHematocrit2019-09-14 05:11:00* Test Item Value Reference Range Interpretation Comments Hematocrit (test code = 4544-3) 41.9 38.2-49.6 [facility] HospitalMean Corpuscular Ypqscz7981-16-17 05:11:00* Test Item Value Reference Range Interpretation Comments Mean Corpuscular Volume (test code = 787-2) 91.5 81-99 [facility] HospitalMean Corpuscular Ynixtkzmdk7371-15-00 05:11:00* Test Item Value Reference Range Interpretation Comments Mean Corpuscular Hemoglobin (test code = 785-6) 29.3 28-32 [facility] HospitalMean Corpuscular Hemoglobin Concent 2019-06-04 05:11:00* Test Item Value Reference Range Interpretation Comments Mean Corpuscular Hemoglobin Concent (test code = 786-4) 32.0 31-35 [facility] HospitalRed Cell Distribution Bnqpj9753-53-20 05:11:00* Test Item Value Reference Range Interpretation Comments Red Cell Distribution Width (test code = 13558-7) 14.0 11.7 -14.4 [facility] HospitalPlatelet Dhoka0860-09-03 05:11:00* Test Item Value Reference Range Interpretation Comments Platelet Count (test code = 777-3) 208 140-360 [facility] HospitalNeutrophils (%) (Auto)2019-06-04 05:11:00 * Test Item Value Reference Range Interpretation Comments Neutrophils (%) (Auto) (test code = 33021-5) 54.5 38.7-80.0 [facility] HospitalLymphocytes (%) (Auto)2019-06-04 05:11:00 * Test Item Value Reference Range Interpretation Comments Lymphocytes (%) (Auto) (test code = 736-9) 25.9 18.0-39.1 [facility] HospitalMonocytes (%) (Auto)2019-06-04 05:11:00* Test Item Value Reference Range Interpretation Comments Monocytes (%) (Auto) (test code = 5905-5) 11.8 4.4-11.3 H [facility] HospitalEosinophils (%) (Auto)2019-06-04 05:11:00 * Test Item Value Reference Range Interpretation Comments Eosinophils (%) (Auto) (test code = 713-8) 7.1 0.0-6.0 H [facility] HospitalBasophils (%) (Auto)2019-06-04 05:11:00* Test Item Value Reference Range Interpretation Comments Basophils (%) (Auto) (test code = 706-2) 0.5 0.0-1.0 [facility] HospitalIM GRANULOCYTES %2019-06-04 05:11:00* Test Item Value Reference Range Interpretation Comments IM GRANULOCYTES % (test code = IM GRANULOCYTES %) 0.2 0.0- 1.0 [facility] HospitalNeutrophils # (Auto)2019-06-04 05:11:00* Test Item Value Reference Range Interpretation Comments Neutrophils # (Auto) (test code = 751-8) 3.5 2.1-6.9 [facility] HospitalLymphocytes # (Auto)2019-06-04 05:11:00* Test Item Value Reference Range Interpretation Comments Lymphocytes # (Auto) (test code = 94454-5) 1.6 1.0-3.2 [facility] HospitalMonocytes # (Auto)2019-06-04 05:11:00* Test Item Value Reference Range Interpretation Comments Monocytes # (Auto) (test code = 742-7) 0.8 0.2-0.8 [facility] HospitalEosinophils # (Auto)2019-06-04 05:11:00* Test Item Value Reference Range Interpretation Comments Eosinophils # (Auto) (test code = 711-2) 0.5 0.0-0.4 H [facility] HospitalBasophils # (Auto)2019-06-04 05:11:00* Test Item Value Reference Range Interpretation Comments Basophils # (Auto) (test code = 704-7) 0.0 0.0-0.1 [facility] HospitalAbsolute Immature Granulocyte (auto 2019-06-04 05:11:00* Test Item Value Reference Range Interpretation Comments Absolute Immature Granulocyte (auto (alba t code = Absolute Immature Granulocyte (auto) 0.01 0-0.1 [facility] HospitalBlood Vamvqdq5250-31-71 12:23:00* Test Item Value Reference Range Interpretation Comments Blood Culture (test code = 54267087) NO GROWTH AFTER 72 HOURS [facility] HospitalCHEST SINGLE (PORTABLE)2019-06-03 06:49:00 [facility] [address] [place] [address] Patient Name: MADDY FRAIRE MR #: [id number] : 1955 Age/Sex: 63/M Req #: [id number] Adm Physician: MANOHAR BAIG MD Ordered by: LORENZO ZAVALA MD Report #: [id number] Location: ICU Room/Bed: ICU [facility] Procedure: DX/CHEST SINGLE (PORTABLE) Exam Date: 06/03/19 Exam Time: 0530 REPORT STATUS: S igned EXAMINATION: CHEST SINGLE (PORTABLE) INDICATION: Respiratory distress COMPARISON: Chest radiograph 05/31/2019 FINDINGS: AP view TUBES and LINES: None. LUNGS: Lungs are well inflated. L ungs are clear. Prominence of the pulmonary vascular. PLEURA: No pleural effusion or pneumothorax. HEART AND MEDIASTINUM: The cardiomediastinal si lhouette is unremarkable. BONES AND SOFT TISSUES: No acute osseous lesion . Soft tissues are unremarkable. UPPER ABDOMEN: No free air under the di aphragm. IMPRESSION: Pulmonary vascular congestion. Signed b y: Magdaleno Travis DO on 06/03/2019 6:51 AM Dictated By: MAGDALENO TRAVIS DO 0 Transcribed By: AMILCAR on 06/03/19650 COPY TO: LORENZO ZAVALA MD Sodium Oexwi9008-18-74 06:08:00* Test Item Value Reference Range Interpretation Comments Sodium Level (test code = 2951-2) 140 136-145 [facility]Potassium Jcscw5503-88-51 06:08:00* Test Item Value Reference Range Interpretation Comments Potassium Level (test code = 2823-3) 3.6 3.5-5.1 [facility] HospitalChloride Ckena7346-88-60 06:08:00* Test Item Value Reference Range Interpretation Comments Chloride Level (test code = 2075-0) 101 98-107 [facility] HospitalCarbon Dioxide Gusco6204-54-46 06:08:00* Test Item Value Reference Range Interpretation Comments Carbon Dioxide Level (test code = 2028-9) 29 22-29 [facility] HospitalAnion Wim2950-81-71 06:08:00* Test Item Value Reference Range Interpretation Comments Anion Gap (test code = 30930-7) 13.6 8-16 [facility] HospitalBlood Urea Xspuanom2482-77-35 06:08:00* Test Item Value Reference Range Interpretation Comments Blood Urea Nitrogen (test code = 3094-0) 19 7-26 [facility] HospitalCreatinine2019-09-13 06:08:00* Test Item Value Reference Range Interpretation Comments Creatinine (test code = 2160-0) 1.77 0.72-1.25 H [facility] HospitalBUN/Creatinine Lleee3337-35-63 06:08:00* Test Item Value Reference Range Interpretation Comments BUN/Creatinine Ratio (test code = 3097-3) 11 6-25 [facility] HospitalEstimat Glomerular Filtration Rate 2019-06-03 06:08:00* Test Item Value Reference Range Interpretation Comments Estimat Glomerular Filtration Rate (test code = 139307904) 39 >60 L Ranges were taken from the National Kidney Disease Education Program and the [facility] [employer] literature.Reference ranges:60 or greater: Jbqbkm44-57 ( for 3 consecutive months): Chronic kidney disease 15 or less: Kidney failureEl [facility]o [facility] HospitalGlucose Chekk0645-49-97 06:08:00* Test Item Value Reference Range Interpretation Comments Glucose Level (test code = DIT9843) 138 74-118 H [facility] HospitalCalcium Qkxkd0727-81-58 06:08:00* Test Item Value Reference Range Interpretation Comments Calcium Level (test code = 52613-4) 9.4 8.4-10.2 [facility] HospitalArterial Blood bE1959-23-54 15:28:00* Test Item Value Reference Range Interpretation Comments Arterial Blood pH (test code = 2744-1) 7.39 7.31-7.41 [facility] HospitalArterial Blood Partial Pressure CO2 2019-06-02 15:28:00* Test Item Value Reference Range Interpretation Comments Arterial Blood Partial Pressure CO2 (test code = 2018-8) 45 41-51 [facility] HospitalArterial Blood Partial Pressure O2 2019-06-02 15:28:00* Test Item Value Reference Range Interpretation Comments Arterial Blood Partial Pressure O2 (test code = 2018-8) 106 80-105 H [facility] HospitalArterial Blood AJY03111-78-70 15:28:00* Test Item Value Reference Range Interpretation Comments Arterial Blood HCO3 (test code = 1960-4) 27 23-28 [facility] HospitalArterial Blood Base Vevfmf9825-45-59 15:28:00* Test Item Value Reference Range Interpretation Comments Arterial Blood Base Excess (test code = 1925-7) 2.0 -2-3 [facility] HospitalArterial Blood Oxygen Saturation 2019-06-02 15:28:00* Test Item Value Reference Range Interpretation Comments Arterial Blood Oxygen Saturation (test code = 2708-6) 98.0 95-98 [facility] HospitalFiO22019-09-12 15:28:00* Test Item Value Reference Range Interpretation Comments FiO2 (test code = FiO2) 98 2L/M NC [facility] 07:50:00* Test Item Value Reference Range Interpretation Comments Ammonia (test code = 61179-1) 72 31-123 [facility] 07:50:00* Test Item Value Reference Range Interpretation Comments Ammonia (test code = 43140-7) 72 31-123 [facility] HospitalCreatine Kinase JJ7495-99-39 15:07:00* Test Item Value Reference Range Interpretation Comments Creatine Kinase MB (test code = 30603-4) 5.70 0-5.0 H [facility] HospitalTroponin N7938-74-38 15:07:00* Test Item Value Reference Range Interpretation Comments Troponin I (test code = BWL8179) 0.020 0-0.300 [facility] HospitalCreatine Ytrwjt2760-91-87 15:04:00* Test Item Value Reference Range Interpretation Comments Creatine Kinase (test code = 2157-6) 582 30-200 H [facility] HospitalLactic Acid Mrdxz1173-17-18 08:56:00* Test Item Value Reference Range Interpretation Comments Lactic Acid Level (test code = Lactic Acid Level) 7.1 4.5- 19.8 [facility] HospitalLactic Acid Whqlw7744-14-42 08:56:00* Test Item Value Reference Range Interpretation Comments Lactic Acid Level (test code = Lactic Acid Level) 7.1 4.5- 19.8 [facility] HospitalPhosphorus Dehqx3466-18-71 07:17:00* Test Item Value Reference Range Interpretation Comments Phosphorus Level (test code = XQN7302) 2.8 2.3-4.7 [facility] HospitalMagnesium Ijukf2286-95-64 07:17:00* Test Item Value Reference Range Interpretation Comments Magnesium Level (test code = 50119-8) 2.1 1.3-2.1 [facility] HospitalTotal Fmcujfeye8216-62-00 07:17:00* Test Item Value Reference Range Interpretation Comments Total Bilirubin (test code = 1975-2) 0.8 0.2-1.2 [facility] HospitalAspartate Amino Transf (AST/SGOT) 2019-06-01 07:17:00* Test Item Value Reference Range Interpretation Comments Aspartate Amino Transf (AST/SGOT) (test code = Aspartate Amino Transf (AST/SGOT)) 19 5-34 [facility] HospitalAlanine Aminotransferase (ALT/SGPT) 2019-06-01 07:17:00* Test Item Value Reference Range Interpretation Comments Alanine Aminotransferase (ALT/SGPT) (test code = 1742-6) 13 0-55 [facility] HospitalTotal Ebxczsx3186-54-59 07:17:00* Test Item Value Reference Range Interpretation Comments Total Protein (test code = 2885-2) 6.2 6.5-8.1 L [facility] HospitalAlbumin2019-09-11 07:17:00* Test Item Value Reference Range Interpretation Comments Albumin (test code = 1751-7) 3.3 3.5-5.0 L [facility] HospitalGlobulin2019-09-11 07:17:00* Test Item Value Reference Range Interpretation Comments Globulin (test code = 25981-3) 2.9 2.3-3.5 [facility] HospitalAlbumin/Globulin Fituc4979-56-31 07:17:00 * Test Item Value Reference Range Interpretation Comments Albumin/Globulin Ratio (test code = 1759-0) 1.1 0.8-2.0 [facility] HospitalAlkaline Gombtwloaof8945-40-07 07:17:00* Test Item Value Reference Range Interpretation Comments Alkaline Phosphatase (test code = 6768-6) 95 40-150 [facility] HospitalTriglycerides Dsdoq7620-13-99 07:17:00* Test Item Value Reference Range Interpretation Comments Triglycerides Level (test code = 2571-8) 139 0-149 [facility] HospitalCholesterol Mmgjk1913-79-45 07:17:00* Test Item Value Reference Range Interpretation Comments Cholesterol Level (test code = 2093-3) 194 0-199 Less than 200 mg/dL Low Lmpj350 - 239 mg/dL Borderline Zgdn376 m g/dl and greater High Risk [facility] HospitalLDL Yylyqsucqeo6499-67-76 07:17:00* Test Item Value Reference Range Interpretation Comments LDL Cholesterol (test code = 2089-1) 132 60-130 H [facility] HospitalHDL Ylnwclactkv6365-91-74 07:17:00* Test Item Value Reference Range Interpretation Comments HDL Cholesterol (test code = 2085-9) 34 40-60 L [facility] HospitalCholesterol/HDL Bzdxo7356-45-31 07:17:00 * Test Item Value Reference Range Interpretation Comments Cholesterol/HDL Ratio (test code = 9830-1) 5.7 3.9-4.7 H [facility] HospitalPhosphorus Jqabc9896-41-44 07:17:00* Test Item Value Reference Range Interpretation Comments Phosphorus Level (test code = FMW6954) 2.8 2.3-4.7 [facility] HospitalMagnesium Wttku5612-00-76 07:17:00* Test Item Value Reference Range Interpretation Comments Magnesium Level (test code = 12841-4) 2.1 1.3-2.1 [facility] HospitalTriglycerides Pwyko1215-27-84 07:17:00* Test Item Value Reference Range Interpretation Comments Triglycerides Level (test code = 2571-8) 139 0-149 [facility] HospitalCholesterol Weuwp4639-72-20 07:17:00* Test Item Value Reference Range Interpretation Comments Cholesterol Level (test code = 2093-3) 194 0-199 Less than 200 mg/dL Low Rndc827 - 239 mg/dL Borderline Npik219 m g/dl and greater High Risk [facility] HospitalLDL Qkmvkghgbqm5488-25-43 07:17:00* Test Item Value Reference Range Interpretation Comments LDL Cholesterol (test code = 2089-1) 132 60-130 H [facility] HospitalHDL Tznxjorchza3733-09-25 07:17:00* Test Item Value Reference Range Interpretation Comments HDL Cholesterol (test code = 2085-9) 34 40-60 L [facility] HospitalCholesterol/HDL Vufhs7749-64-94 07:17:00 * Test Item Value Reference Range Interpretation Comments Cholesterol/HDL Ratio (test code = 9830-1) 5.7 3.9-4.7 H [facility] HospitalUrine YBZ9393-13-68 18:58:00* Test Item Value Reference Range Interpretation Comments Urine WBC (test code = 5821-4) NONE 0-5 [facility] HospitalUrine QTT9951-01-67 18:58:00* Test Item Value Reference Range Interpretation Comments Urine RBC (test code = 77839-7) NONE 0-5 [facility] HospitalUrine Bvzmqctb2577-24-03 18:58:00* Test Item Value Reference Range Interpretation Comments Urine Bacteria (test code = 74664-5) FEW NONE [facility] HospitalUrine Epithelial Ywfhh9143-14-05 18:58:00 * Test Item Value Reference Range Interpretation Comments Urine Epithelial Cells (test code = 77808-2) NONE NONE [facility] HospitalUrine Amorphous Ncheuakp2067-43-07 18:58:00* Test Item Value Reference Range Interpretation Comments Urine Amorphous Sediment (test code = 8246-1) FEW FEW [facility] HospitalUrine Pcvzl2861-62-67 18:58:00* Test Item Value Reference Range Interpretation Comments Urine Mucus (test code = 8247-9) MODERATE RARE H [facility] HospitalUrine UHO2398-84-17 18:58:00* Test Item Value Reference Range Interpretation Comments Urine WBC (test code = 5821-4) NONE 0-5 [facility] HospitalUrine DXZ1526-59-03 18:58:00* Test Item Value Reference Range Interpretation Comments Urine RBC (test code = 39209-3) NONE 0-5 [facility] HospitalUrine Coiaomji5996-07-16 18:58:00* Test Item Value Reference Range Interpretation Comments Urine Bacteria (test code = 62323-9) FEW NONE [facility] HospitalUrine Epithelial Xvrvr7717-03-94 18:58:00 * Test Item Value Reference Range Interpretation Comments Urine Epithelial Cells (test code = 46004-0) NONE NONE [facility] HospitalUrine Amorphous Bufwusut1339-26-80 18:58:00* Test Item Value Reference Range Interpretation Comments Urine Amorphous Sediment (test code = 8246-1) FEW FEW [facility] Nllff0062-61-51 18:58:00* Test Item Value Reference Range Interpretation Comments Urine Mucus (test code = 8247-9) MODERATE RARE H [facility] Ovdru4185-65-86 18:45:00* Test Item Value Reference Range Interpretation Comments Urine Color (test code = 5778-6) YELLOW YELLOW [facility] Nocqgcf7156-73-21 18:45:00* Test Item Value Reference Range Interpretation Comments Urine Clarity (test code = 39791-6) SL CLOUDY CLEAR H [facility] Specific Mqmdhph1065-42-43 18:45:00 * Test Item Value Reference Range Interpretation Comments Urine Specific [place] (test code = 5811-5) >=1.030 1.010-1.[address] [facility] zL0314-99-04 18:45:00* Test Item Value Reference Range Interpretation Comments Urine pH (test code = 14670-8) 6 5-7 [facility] Leukocyte Dmjpqmgw1291-73-60 18:45:00* Test Item Value Reference Range Interpretation Comments Urine Leukocyte Esterase (test code = 26268-0) NEGATIVE NEGATIV E [facility] Gklknkk2833-87-53 18:45:00* Test Item Value Reference Range Interpretation Comments Urine Nitrite (test code = 19290-1) NEGATIVE NEGATIVE [facility] Ludwpdp5863-40-01 18:45:00* Test Item Value Reference Range Interpretation Comments Urine Protein (test code = 17307-0) TRACE NEGATIVE H [facility] Glucose (UA)2019-05-31 18:45:00* Test Item Value Reference Range Interpretation Comments Urine Glucose (UA) (test code = 94347-5) NEGATIVE NEGATIVE [facility] Oewjbzh7450-21-20 18:45:00* Test Item Value Reference Range Interpretation Comments Urine Ketones (test code = 56137-7) NEGATIVE NEGATIVE [facility] Mfxitfaftwsa9237-29-83 18:45:00* Test Item Value Reference Range Interpretation Comments Urine Urobilinogen (test code = 37301-0) 1 0.2-1 [facility] HospitalU[facility] Ihpyfgwcd0652-11-56 18:45:00* Test Item Value Reference Range Interpretation Comments Urine Bilirubin (test code = 1977-8) NEGATIVE NEGATIVE [facility] HospitalUrine Wvslc9869-34-59 18:45:00* Test Item Value Reference Range Interpretation Comments Urine Blood (test code = 28868-2) NEGATIVE NEGATIVE [facility] Epsmw1522-59-04 18:45:00* Test Item Value Reference Range Interpretation Comments Urine Color (test code = 5778-6) YELLOW YELLOW [facility] HospitalUrine Gzpykbq5530-27-74 18:45:00* Test Item Value Reference Range Interpretation Comments Urine Clarity (test code = 71412-8) SL CLOUDY CLEAR H [facility] HospitalUrine Specific Mgpmmff7771-91-38 18:45:00 * Test Item Value Reference Range Interpretation Comments Urine Specific [place] (test code = 5811-5) >=1.030 1.010-1.02 5 [facility] HospitalU[facility] lQ7739-08-83 18:45:00* Test Item Value Reference Range Interpretation Comments Urine pH (test code = 59610-2) 6 5-7 [facility] Leukocyte Ywlpyzae5395-61-08 18:45:00* Test Item Value Reference Range Interpretation Comments Urine Leukocyte Esterase (test code = 36008-7) NEGATIVE NEGATIV E [facility] HospitalUrine Aqkzozh3950-70-45 18:45:00* Test Item Value Reference Range Interpretation Comments Urine Nitrite (test code = 97293-8) NEGATIVE NEGATIVE [facility] HospitalU[facility] Lwyatbo3389-87-34 18:45:00* Test Item Value Reference Range Interpretation Comments Urine Protein (test code = 35739-5) TRACE NEGATIVE H [facility] HospitalUrine Glucose (UA)2019-05-31 18:45:00* Test Item Value Reference Range Interpretation Comments Urine Glucose (UA) (test code = 28823-7) NEGATIVE NEGATIVE [facility] HospitalU[facility] Gjwulvf8662-57-50 18:45:00* Test Item Value Reference Range Interpretation Comments Urine Ketones (test code = 14814-6) NEGATIVE NEGATIVE [facility] HospitalU[facility] Coaznuuvsmvs7138-10-05 18:45:00* Test Item Value Reference Range Interpretation Comments Urine Urobilinogen (test code = 49414-0) 1 0.2-1 [facility] HospitalUrine Bayskhamn4255-75-92 18:45:00* Test Item Value Reference Range Interpretation Comments Urine Bilirubin (test code = 1977-8) NEGATIVE NEGATIVE [facility] HospitalU[facility] Fwkza1605-26-27 18:45:00* Test Item Value Reference Range Interpretation Comments Urine Blood (test code = 05318-6) NEGATIVE NEGATIVE [facility] HospitalMRI BRAIN BR0358-41-57 17:41:00 [place] [address] Patient Name: MADDY FRAIRE MR #: [id number] : 0 1955 Age/Sex: 63/M Req #: [id number] Adm Physician: MANOHAR BAIG MD Ordered by: WILDER ROSA, BESSY ROSA Report #: [id number] Location: [facility] Room/Bed: [place] [address] Procedure: [id number] MRI/MRI BRAIN WO Exam Date: Exam Time: REPORT STATUS: Signed Examination: MRI BRAIN WO CONTRAST History: Right weakness. Comparison studies: 02/03/2019 brain MRI. 05/31/2019 and 05/25/[address] Technique: Sagittal T2; a xial DWI, FLAIR, GRE or SWI, T1, Coronal FLAIR. Intravenous contrast: None Findings: Scalp: No abnormal signal. No masses. Bone marrow: Normal in signal intensity. Brain volume: Adequate for age. No volume loss. Ventr icles: The ventricular size is out of proportion with respect to cerebral conv exity sulci, concerning for a communicating type of hydrocephalus, such as nor mal pressure hydrocephalus. Extra-axial spaces: No abnormalities. P arenchyma: Again demonstrated are patchy and confluent areas of T2/FLAIR hyper intensity in the periventricular and subcortical white matter, nonspecific. A chronic lacunar infarct is demonstrated in the left lateral thalamus. No ma sses, hemorrhage, or acute vascular insults. Suprasellar and sellar region: No abnormalities. Craniocervical junction: No abnormalities. The foramen magn um is patent. No Chiari malformations. Vessels: Normal flow-voids in the art eries and sinuses. Additional findings:None. IMPRESSION: No acute abnormalities when compared to prior brain MRI dated 02/03/2019. Severe chr onic microvascular ischemic change and moderate volume loss. Chronic lacun ar infarct in the left lateral thalamus. Signed by: Christy Dhaliwal on 05/31/2019 5:50 PM Dictated By: WILLIAM ERICKSON MD Electr onically Signed By: WILLIAM ERICKSON MD on 05/31/191749 Transcribed By : AMILCAR on 05/31/191749 COPY TO: BESSY HDZ Thyroid Stimulating Hormone (TSH)2019-05-31 12:49:00* Test Item Value Reference Range Interpretation Comments Thyroid Stimulating Hormone (TSH) (test code = 46877-4) 0.922 0.350-4.940 [facility] HospitalThyroid Stimulating Hormone (TSH) 2019-05-31 12:49:00* Test Item Value Reference Range Interpretation Comments Thyroid Stimulating Hormone (TSH) (test code = 70664-5) 0.922 0.350-4.940 [facility] HospitalCHEST SINGLE (PORTABLE)2019-05-31 12:33:00 [place] [address] Patient Name: MADDY FRAIRE MR #: [id number] : 1955 Age/Sex: 63/M Req #: [id number] Adm Physician: Ordered by: BESSY HDZ MD, MD Report #: [id number] Location: ER Room/Bed: Procedure: DX/CHEST SINGLE (PORTABLE) Exam Date: 05/31/19 Exam Time: 1215 REPORT STATUS: S igned Chest, 1 view, 05/31/2019. History: Weakness. Comparis on: 09/14/2019. Findings: The cardiomediastinal silhouette and pulmonary va sculature are within normal limits for a portable exam. There is no focal cons olidation or pleural effusion. There are no acute osseous or soft tissue abnor malities. Impression: No acute cardiopulmonary abnormality. Signed by: Killian Lipscomb on 05/31/2019 12:33 PM Dictated By: KILLIAN LIPSCOMB MD E lectronically Signed By: KILLIAN LIPSCOMB MD on 05/31/19 1233 Transcribed By: HELLEN COOPER on 05/31/19 1233 COPY TO: BESSY HDZ CT BRAIN WO 2019-05-31 12:27:00 [place] [address] Patient Name: MADDY FRAIRE MR #: [id number] : 1955 Age/Sex: 63/M Req #: [id number] Adm Physician: Ordered by: BESSY HDZ MD, MD Report #: [id number] Location: ER Room/Bed: Procedure: CT/CT BRAIN WO Exam Date: 05/31/19 Exam Time : 1210 REPORT STATUS: Signed Exa mination: CT head without contrast Clinical Indication: Weakness. Technique: Transaxial noncontrast images from the skull base through the vertex were obt ained. Sagittal and coronal reformatted images were done. Dose modulation, ite rative reconstruction, and/or weight based adjustment of the mA/kV was utilize d to reduce the radiation dose to as low as reasonably achievable. Comparis on: head CT May 25, 2018 . Brain MRI performed February 03, 2019. Findings: Scalp: No abnormalities. Bones: Intact. No fractures. No blastic or lyt ic lesions. Brain sulci: Appropriate for patient's age. Ventricles: The ventricular size is out of proportion with respect to cerebral convexity sulci , concerning for a communicating type of hydrocephalus, such as normal pressur e hydrocephalus. Extra-axial space: No abnormalities. Parenchyma: Again demonstrated are patchy and confluent areas of low-attenuation within subcortical and periventricular white matter, nonspecific, but could represent microvascular ischemic disease. A chronic lacunar infarct is demonstrated in the left lateral thalamus. No masses, hemorrhage, or acute or chronic cortical based vascular insults. Suprasellar region: No abnormalities. Craniocerv ical junction: The foramen magnum is patent. No Chiari one malformation. Impression: 1. No new or acute intracranial abnormality when compared to prior head CT and brain MRI performed on May 25, 2018 and February 03, 2019, r espective. 2. Unchanged findings concerning for normal pressure hydrocepha gopal. 3. Unchanged moderate chronic microvascular ischemic change. Sig clifford by: Dr. William Ag M.D. on 05/31/2019 12:30 PM Dictated By: KATHIE ERICKSON MD 1230 Transcribed By: AMILCAR on 05/31/19 1230 COPY TO: BESSY RDZ B-Type Natriuretic Sulxwjx4923-53-90 12:20:00* Test Item Value Reference Range Interpretation Comments B-Type Natriuretic Peptide (test code = 84868-0) 131.6 0-100 H [facility] HospitalLipase2019-09-10 12:20:00* Test Item Value Reference Range Interpretation Comments Lipase (test code = 3040-3) 419 8-78 H [facility] HospitalB-Type Natriuretic Dwwdwte3301-35-01 12:20:00* Test Item Value Reference Range Interpretation Comments B-Type Natriuretic Peptide (test code = 65437-9) 131.6 0-100 H [facility] HospitalLipase2019-09-10 12:20:00* Test Item Value Reference Range Interpretation Comments Lipase (test code = 3040-3) 419 8-78 H [facility] HospitalProthrombin Ftqb5672-77-81 11:58:00* Test Item Value Reference Range Interpretation Comments Prothrombin Time (test code = 5902-2) 13.8 11.9-14.5 [facility] HospitalProthromb Time International Ratio 2019-05-31 11:58:00* Test Item Value Reference Range Interpretation Comments Prothromb Time International Ratio (test code = 6301-6) 1.01 Oral Anticoagulant Therapy INR Values:1. Low Intensity Therapy 1.5 - 2.02 . Moderate Intensity Therapy 2.0 - 3.03. High Intensity Therapy(1) 2.5 - 3. 54. High Intensity Therapy(2) 3.0 - 4.05. Panic Value INR > 5.0 [facility] HospitalActivated Partial Thromboplast Time 2019-05-31 11:58:00* Test Item Value Reference Range Interpretation Comments Activated Partial Thromboplast Time (test code = 91587-2) 26.3 23.8-35.5 [facility] HospitalProthrombin Sntx2416-94-38 11:58:00* Test Item Value Reference Range Interpretation Comments Prothrombin Time (test code = 5902-2) 13.8 11.9-14.5 [facility] HospitalProthromb Time International Ratio 2019-05-31 11:58:00* Test Item Value Reference Range Interpretation Comments Prothromb Time International Ratio (test code = 6301-6) 1.01 Oral Anticoagulant Therapy INR Values:1. Low Intensity Therapy 1.5 - 2.02 . Moderate Intensity Therapy 2.0 - 3.03. High Intensity Therapy(1) 2.5 - 3. 54. High Intensity Therapy(2) 3.0 - 4.05. Panic Value INR > 5.0 [facility] HospitalActivated Partial Thromboplast Time 2019-05-31 11:58:00* Test Item Value Reference Range Interpretation Comments Activated Partial Thromboplast Time (test code = 01108-9) 26.3 23.8-35.5 [facility] HospitalMRI BRAIN NG5419-14-52 13:08:00 [facility] [address] [place] [address] Patient Name: MADDY FRAIRE MR #: [id number] : 0 1955 Age/Sex: 63/M Req #: [id number] Adm Physician: Ordered by: MANOHAR BAIG MD Report #: [id number] Location: MRI Room/Bed: Procedure: [id number] MRI/MRI BRAIN WO Exam Date: Exam Time: REPORT STATUS: Signed Examination: MRI BRAIN WITHOUT CONTRAST History: Syncope. Dizziness. Comparison studies: Head CT performed May 25, 2018. Technique: Sagittal T2; axial DWI, FLA IR, GRE or SWI, T1, Coronal FLAIR. Intravenous contrast: None Findings: Scalp: No abnormal signal. No masses. Bone marrow: Normal in signal inten sity. Brain volume: Adequate for age. No volume loss. Ventricles: Normal in size and configuration. No hydrocephalus. Extra-axial spaces: No abnormalities. Parenchyma: There are patchy and confluent areas of T2/FLA IR hyperintensity in the periventricular and subcortical and pontine white mat ter, nonspecific. A chronic lacunar infarct is demonstrated in the left later al thalamus. No masses, hemorrhage, or acute vascular insults. Suprasella r and sellar region: No abnormalities. Craniocervical junction: No abnormaliti es. The foramen magnum is patent. No Chiari malformations. Vessels: Normal f low-voids in the arteries and sinuses. Additional findings:None. IMPRE SSION: 1. No acute intracranial abnormalities. 2. Severe chronic ti rovascular ischemic change and moderate volume loss. Chronic lacunar infarct i n the left lateral thalamus. Signed by: Dr. William Ag M.D. on 2018 1:10 PM Dictated By: WILLIAM ERICKSON MD Electronically Sig clifford By: WILLIAM ERICKSON MD on 02/03/19 1310 Transcribed By: AMILCAR on 02/03/19 1310 COPY TO: MANOHAR BAIG MD Blood Rkopdop0093-47-33 07:37:00* Test Item Value Reference Range Interpretation Comments Blood Culture (test code = 30574504) NO GROWTH AFTER 48 HOURS [facility] Allianceodium Kwtxs1225-08-58 06:19:00* Test Item Value Reference Range Interpretation Comments Sodium Level (test code = 2951-2) 136 136-145 [facility] HospitalPotassium Pfgyb6551-07-26 06:19:00* Test Item Value Reference Range Interpretation Comments Potassium Level (test code = 2823-3) 4.1 3.5-5.1 [facility] HospitalChloride Wsqvu8597-02-26 06:19:00* Test Item Value Reference Range Interpretation Comments Chloride Level (test code = 2075-0) 100 98-107 [facility] HospitalCarbon Dioxide Yagws5773-62-35 06:19:00* Test Item Value Reference Range Interpretation Comments Carbon Dioxide Level (test code = 2028-9) 25 22-29 [facility] HospitalAnion Dlt5688-74-43 06:19:00* Test Item Value Reference Range Interpretation Comments Anion Gap (test code = 74471-6) 15.1 8-16 [facility] HospitalBlood Urea Mjyrluav7261-75-99 06:19:00* Test Item Value Reference Range Interpretation Comments Blood Urea Nitrogen (test code = 3094-0) 22 04-15 [facility] HospitalCreatinine2018-12-26 06:19:00* Test Item Value Reference Range Interpretation Comments Creatinine (test code = 2160-0) 1.32 0.72-1.25 H [facility] HospitalBUN/Creatinine Yecox7147-87-39 06:19:00* Test Item Value Reference Range Interpretation Comments BUN/Creatinine Ratio (test code = 3097-3) 17 03-15 [facility] HospitalEstimat Glomerular Filtration Rate 2018-09-15 06:19:00* Test Item Value Reference Range Interpretation Comments Estimat Glomerular Filtration Rate (test code = 230873763) 55 >60 L Ranges were taken from the National Kidney Disease Education Program and the [facility] literature.Reference ranges:60 or greater: Ovswlh12-61 ( for 3 consecutive months): Chronic kidney disease 15 or less: Kidney failureEl Campo Memorial HospitalGlucose Rdeob5148-83-68 06:19:00* Test Item Value Reference Range Interpretation Comments Glucose Level (test code = GLC9907) 108 74-118 [facility] HospitalCalcium Zqmdl0399-12-56 06:19:00* Test Item Value Reference Range Interpretation Comments Calcium Level (test code = 28830-0) 9.4 8.4-10.2 [facility] HospitalWhite Blood Ifvzi6773-30-64 05:41:00* Test Item Value Reference Range Interpretation Comments White Blood Count (test code = 6690-2) 7.93 4.8-10.8 [facility] HospitalRed Blood Jpmke2285-80-34 05:41:00* Test Item Value Reference Range Interpretation Comments Red Blood Count (test code = 789-8) 4.39 4.3-5.7 [facility] HospitalHemoglobin2018-12-26 05:41:00* Test Item Value Reference Range Interpretation Comments Hemoglobin (test code = 05810-6) 12.5 14.0-18.0 L [facility] HospitalHematocrit2018-12-26 05:41:00* Test Item Value Reference Range Interpretation Comments Hematocrit (test code = 4544-3) 39.7 38.2-49.6 [facility] HospitalMean Corpuscular Rntuqy8435-33-66 05:41:00* Test Item Value Reference Range Interpretation Comments Mean Corpuscular Volume (test code = 787-2) 90.4 81-99 [facility] HospitalMean Corpuscular Vdvffqpguf9385-95-97 05:41:00* Test Item Value Reference Range Interpretation Comments Mean Corpuscular Hemoglobin (test code = 785-6) 28.5 28-32 [facility] HospitalMean Corpuscular Hemoglobin Concent 2018-09-15 05:41:00* Test Item Value Reference Range Interpretation Comments Mean Corpuscular Hemoglobin Concent (test code = 786-4) 31.5 31-35 [facility] HospitalRed Cell Distribution Fobvm1584-60-10 05:41:00* Test Item Value Reference Range Interpretation Comments Red Cell Distribution Width (test code = 52733-5) 16.9 11.7 -14.4 H [facility] HospitalPlatelet Qyfsm6255-88-40 05:41:00* Test Item Value Reference Range Interpretation Comments Platelet Count (test code = 777-3) 205 140-360 [facility] HospitalNeutrophils (%) (Auto)2018-09-15 05:41:00 * Test Item Value Reference Range Interpretation Comments Neutrophils (%) (Auto) (test code = 14003-9) 65.8 38.7-80.0 [facility] HospitalLymphocytes (%) (Auto)2018-09-15 05:41:00 * Test Item Value Reference Range Interpretation Comments Lymphocytes (%) (Auto) (test code = 736-9) 19.8 18.0-39.1 [facility] HospitalMonocytes (%) (Auto)2018-09-15 05:41:00* Test Item Value Reference Range Interpretation Comments Monocytes (%) (Auto) (test code = 5905-5) 8.4 4.4-11.3 [facility] HospitalEosinophils (%) (Auto)2018-09-15 05:41:00 * Test Item Value Reference Range Interpretation Comments Eosinophils (%) (Auto) (test code = 713-8) 5.5 0.0-6.0 [facility] HospitalBasophils (%) (Auto)2018-09-15 05:41:00* Test Item Value Reference Range Interpretation Comments Basophils (%) (Auto) (test code = 706-2) 0.4 0.0-1.0 [facility] HospitalIM GRANULOCYTES %2018-09-15 05:41:00* Test Item Value Reference Range Interpretation Comments IM GRANULOCYTES % (test code = IM GRANULOCYTES %) 0.1 0.0- 1.0 [facility] HospitalNeutrophils # (Auto)2018-09-15 05:41:00* Test Item Value Reference Range Interpretation Comments Neutrophils # (Auto) (test code = 751-8) 5.2 2.1-6.9 [facility] HospitalLymphocytes # (Auto)2018-09-15 05:41:00* Test Item Value Reference Range Interpretation Comments Lymphocytes # (Auto) (test code = 17315-5) 1.6 1.0-3.2 [facility] HospitalMonocytes # (Auto)2018-09-15 05:41:00* Test Item Value Reference Range Interpretation Comments Monocytes # (Auto) (test code = 742-7) 0.7 0.2-0.8 [facility] HospitalEosinophils # (Auto)2018-09-15 05:41:00* Test Item Value Reference Range Interpretation Comments Eosinophils # (Auto) (test code = 711-2) 0.4 0.0-0.4 [facility] HospitalBasophils # (Auto)2018-09-15 05:41:00* Test Item Value Reference Range Interpretation Comments Basophils # (Auto) (test code = 704-7) 0.0 0.0-0.1 [facility] HospitalAbsolute Immature Granulocyte (auto 2018-09-15 05:41:00* Test Item Value Reference Range Interpretation Comments Absolute Immature Granulocyte (auto (alba t code = Absolute Immature Granulocyte (auto) 0.01 0-0.1 [facility] HospitalB-Type Natriuretic Uvyhspi0967-90-89 18:12:00* Test Item Value Reference Range Interpretation Comments B-Type Natriuretic Peptide (test code = 15827-3) 380.2 0-100 H [facility] HospitalCreatine Kinase XA2971-39-00 07:18:00* Test Item Value Reference Range Interpretation Comments Creatine Kinase MB (test code = 84332-5) 1.40 0-5.0 [facility] HospitalTroponin J8197-69-84 07:18:00* Test Item Value Reference Range Interpretation Comments Troponin I (test code = ZOU2305) 0.204 0-0.300 [facility] HospitalCHEST 2 UYEUJ4337-54-30 06:55:00 [place] [address] Patient Name: MADDY FRAIRE MR #: [id number] : 0 1955 Age/Sex: 62/M Req #: [id number] Adm Physician: MANOHAR BAIG MD Ordered by: MANOHAR BAIG MD Report #: [id number] Location: [facility] Room/Bed: [place] [address] Procedure: 122 5-0002 DX/CHEST 2 VIEWS Exam Date: 09/14/18 Exam Allen e: 0630 REPORT STATUS: Signed EX AM: CHEST 2 VIEWS, PA and lateral INDICATION: Hypertension COMPARISON: AP vi ew of the chest September 13, 2018 FINDINGS: LINES/TUBES: None LUNGS: No consolidations or edema. PLEURA: No effusions or pneumothorax. HE ART AND MEDIASTINUM: Stable mild cardiomegaly. BONES AND SOFT TISSUES: No a cute findings. IMPRESSION: Mild cardiomegaly without pulmonary edema. Signed by: Dr. Tico Wahl M.D. on 09/14/2018 6:56 AM Dic tated By: TICO WAHL MD 5 COPY TO: MANOHAR BAIG MD Creatine Hulddi8813-82-71 06:54:00* Test Item Value Reference Range Interpretation Comments Creatine Kinase (test code = 2157-6) 61 30-200 [facility] HospitalTriglycerides Mmtvv5361-96-18 05:53:00* Test Item Value Reference Range Interpretation Comments Triglycerides Level (test code = 2571-8) 104 0-149 [facility] HospitalLDL Ryzfyuvuwhk5497-11-82 05:53:00* Test Item Value Reference Range Interpretation Comments LDL Cholesterol (test code = 2089-1) 68 60-130 [facility] HospitalMagnesium Agbte2406-27-01 05:45:00* Test Item Value Reference Range Interpretation Comments Magnesium Level (test code = 80684-7) 2.4 1.3-2.1 H [facility] HospitalCholesterol Wzusn5883-34-43 05:45:00* Test Item Value Reference Range Interpretation Comments Cholesterol Level (test code = 2093-3) 136 0-199 Less than 200 mg/dL Low Epwo010 - 239 mg/dL Borderline Inve508 m g/dl and greater High Risk [facility] HospitalHDL Nkulkfknyhl3169-28-86 05:45:00* Test Item Value Reference Range Interpretation Comments HDL Cholesterol (test code = 2085-9) 47 40-60 [facility] HospitalCholesterol/HDL Czmvk2404-95-17 05:45:00 * Test Item Value Reference Range Interpretation Comments Cholesterol/HDL Ratio (test code = 9830-1) 2.9 3.9-4.7 L [facility] HospitalLactic Acid Hjljg3146-04-08 15:06:00* Test Item Value Reference Range Interpretation Comments Lactic Acid Level (test code = Lactic Acid Level) 12.8 4.5- 19.8 [facility] DSPJDVNFF8649-71-78 13:57:00 [facility] [address] [address] Patient Name: MADDY FRAIRE MR #: [id number] : 1955 Age/Sex: 62/M Req #: [id number] Adm Physician: MANOHAR BAIG MD Ordered by: GENNY GREENE MD Report #: [id number] Location: [facility] Room/Bed: [place] [address] Procedure: NM/VQ LUNG SCAN VENT PERFUSION Exam Date: Exam Time: REPORT STATUS: Signed Ventilation/perfusion lung scan Clinical Information: 62 M with SOB Comparison: Chest radiograph 09/13/2018 Discussion: Xenon-133 gas 10 mCi was administered via inhalation. Dynamic images of the lungs in the posterior projection were obtained through single breath, equilibrium, and washout phas es. Distribution of tracer activity is slightly irregular throughout the lung s. There are no segmental ventilatory defects. Washout of tracer is diffusel y delayed with air trapping diffusely throughout the left lung and in the mid right lung. Perfusion images of the lungs were obtained in multiple project ions following intravenous administration of approximately 6 mCi of Tc-99m MAA . Distribution of tracer is irregular throughout the lungs. The contours of t he lungs are well demarcated. There are no segmental perfusion defects of any size. The cardiomediastinal silhouette is enlarged. Impression: Scan findings represent a LOW probability for acute pulmonary embolic disease based on the PIOPED II criteria. Scan evidence of obstructive lung dis ease, left lung worse than right lung. Enlarged cardiac silhouette. Si gned by: Dr. Yovanny Ely M.D. on 09/13/2018 2:03 PM Dictated By: YOVANNY FUNES MD 02 Transcribed By: AMILCAR on 09/13/181402 COPY TO: GENNY GREENE MD Arterial Blood pZ1233-84-63 11:57:00* Test Item Value Reference Range Interpretation Comments Arterial Blood pH (test code = 2744-1) 7.38 7.31-7.41 [facility] HospitalArterial Blood Partial Pressure CO2 2018-09-13 11:57:00* Test Item Value Reference Range Interpretation Comments Arterial Blood Partial Pressure CO2 (test code = 2018-) 41 41-51 [facility] HospitalArterial Blood Partial Pressure O2 2018-09-13 11:57:00* Test Item Value Reference Range Interpretation Comments Arterial Blood Partial Pressure O2 (test code = 2018-) 98 80-105 [facility] HospitalArterial Blood CUE48625-58-87 11:57:00* Test Item Value Reference Range Interpretation Comments Arterial Blood HCO3 (test code = 1960-4) 24 23-28 [facility] HospitalArterial Blood Base Yduvsh5056-23-27 11:57:00* Test Item Value Reference Range Interpretation Comments Arterial Blood Base Excess (test code = 1925-7) -1.0 -2-3 [facility] HospitalArterial Blood Oxygen Saturation 2018-09-13 11:57:00* Test Item Value Reference Range Interpretation Comments Arterial Blood Oxygen Saturation (test code = 2708-6) 97.0 95-98 [facility] HospitalFiO22018-12-24 11:57:00* Test Item Value Reference Range Interpretation Comments FiO2 (test code = FiO2) 36 4L/M NC RIGHT RADIALEl Campo Memorial HospitalThyroid Stimulating Hormone (TSH)2018-09-13 10:55:00* Test Item Value Reference Range Interpretation Comments Thyroid Stimulating Hormone (TSH) (test code = 51858-8) 2.962 0.350-4.940 [facility] HospitalUrine Bdxpq3421-04-18 10:25:00* Test Item Value Reference Range Interpretation Comments Urine Color (test code = 5778-6) YELLOW YELLOW [facility] HospitalUrine Mnbpdlf9011-03-74 10:25:00* Test Item Value Reference Range Interpretation Comments Urine Clarity (test code = 93374-5) CLEAR CLEAR [facility] Specific Bchuyvf9448-62-20 10:25:00 * Test Item Value Reference Range Interpretation Comments Urine Specific [place] (test code = 5811-5) 1.010 1.010-1.02 5 [facility] HospitalUrine cV6660-18-38 10:25:00* Test Item Value Reference Range Interpretation Comments Urine pH (test code = 15221-8) 6.5 5-7 [facility] HospitalUrine Leukocyte Sfphrviq8495-28-07 10:25:00* Test Item Value Reference Range Interpretation Comments Urine Leukocyte Esterase (test code = 5799-2) NEGATIVE NEGATIVE [facility] HospitalUrine Kzvghke2497-96-43 10:25:00* Test Item Value Reference Range Interpretation Comments Urine Nitrite (test code = 12195-5) NEGATIVE NEGATIVE [facility] HospitalUrine Aaiowvy5385-74-20 10:25:00* Test Item Value Reference Range Interpretation Comments Urine Protein (test code = 5804-0) NEGATIVE NEGATIVE [facility] HospitalUrine Glucose (UA)2018-09-13 10:25:00* Test Item Value Reference Range Interpretation Comments Urine Glucose (UA) (test code = 2349-9) NEGATIVE NEGATIVE [facility] HospitalUrine Pghukti8490-47-24 10:25:00* Test Item Value Reference Range Interpretation Comments Urine Ketones (test code = 36523-5) NEGATIVE NEGATIVE [facility] HospitalUrine Dyllwynnkeqp1678-43-23 10:25:00* Test Item Value Reference Range Interpretation Comments Urine Urobilinogen (test code = 77386-7) 0.2 0.2-1 [facility] HospitalUrine Waodamodl5705-19-15 10:25:00* Test Item Value Reference Range Interpretation Comments Urine Bilirubin (test code = 1978-6) NEGATIVE NEGATIVE [facility] HospitalUrine Maiwj9091-75-54 10:25:00* Test Item Value Reference Range Interpretation Comments Urine Blood (test code = 06018-5) NEGATIVE NEGATIVE [facility] HospitalUrine RKI7482-96-30 10:25:00* Test Item Value Reference Range Interpretation Comments Urine WBC (test code = 5821-4) NONE 0-5 [facility] HospitalUrine TEN3899-90-90 10:25:00* Test Item Value Reference Range Interpretation Comments Urine RBC (test code = 55621-5) NONE 0-5 [facility] HospitalUrine Xmznlztb3734-22-89 10:25:00* Test Item Value Reference Range Interpretation Comments Urine Bacteria (test code = 39796-8) NONE NONE [facility] HospitalUrine Epithelial Ldfvw4028-63-42 10:25:00 * Test Item Value Reference Range Interpretation Comments Urine Epithelial Cells (test code = 00327-6) RARE NONE [facility] HospitalTotal Tifevnoiq8890-07-16 08:34:00* Test Item Value Reference Range Interpretation Comments Total Bilirubin (test code = 1975-2) 0.6 0.2-1.2 [facility] HospitalAspartate Amino Transf (AST/SGOT) 2018-09-13 08:34:00* Test Item Value Reference Range Interpretation Comments Aspartate Amino Transf (AST/SGOT) (test code = Aspartate Amino Transf (AST/SGOT)) 29 5-34 [facility] HospitalAlanine Aminotransferase (ALT/SGPT) 2018-09-13 08:34:00* Test Item Value Reference Range Interpretation Comments Alanine Aminotransferase (ALT/SGPT) (test code = 1742-6) 31 0-55 [facility] HospitalTotal Udkqcbg4542-30-69 08:34:00* Test Item Value Reference Range Interpretation Comments Total Protein (test code = 2885-2) 6.6 6.5-8.1 [facility] HospitalAlbumin2018-12-24 08:34:00* Test Item Value Reference Range Interpretation Comments Albumin (test code = 1751-7) 3.4 3.5-5.0 L [facility] HospitalGlobulin2018-12-24 08:34:00* Test Item Value Reference Range Interpretation Comments Globulin (test code = 84639-7) 3.2 2.3-3.5 [facility] HospitalAlbumin/Globulin Levra3872-99-99 08:34:00 * Test Item Value Reference Range Interpretation Comments Albumin/Globulin Ratio (test code = 1759-0) 1.1 0.8-2.0 [facility] HospitalAlkaline Tzydbbtebeg4671-75-26 08:34:00* Test Item Value Reference Range Interpretation Comments Alkaline Phosphatase (test code = 6768-6) 99 40-150 [facility] HospitalLipase2018-12-24 08:34:00* Test Item Value Reference Range Interpretation Comments Lipase (test code = 3040-3) 50 8-78 [facility] HospitalInfluenza Virus Types A,B Antigen 2018-09-13 08:11:00* Test Item Value Reference Range Interpretation Comments Influenza Virus Types A,B Antigen (test code = 18645-3) NEGATIVE NEGATIVE [facility] HospitalInfluenza Virus Types A,B Antigen 2018-09-13 08:11:00* Test Item Value Reference Range Interpretation Comments Influenza Virus Types A,B Antigen (test code = 77770-7) NEGATIVE NEGATIVE [facility] HospitalCHEST SINGLE (PORTABLE)2018-09-13 07:56:00 [place] [address] Patient Name: MADDY FRAIRE MR #: [id number] : 1955 Age/Sex: 62/M Req #: [id number] Adm Physician: Ordered by: GENNY GREENE MD Report #: [id number] Location: ER Room/Bed: Procedure: [id number] DX /CHEST SINGLE (PORTABLE) Exam Date: 09/13/18 Exam Ti me: 0740 REPORT STATUS: Signed E XAMINATION: CHEST SINGLE (PORTABLE) COMPARISON: Chest radiograph 2017. FINDINGS: Exam is limited by portable technique and rotation. TUBES and LINES: None. LUNGS: Low lung volumes. Patchy opacities in the bilateral lower and right mid lung zones. Perihilar and interstitial opac ities. PLEURA: Small bilateral pleural effusions. No evidence of pneumoth orax. HEART AND MEDIASTINUM: Mild enlargement of the cardiomediastinal si lhouette. BONES AND SOFT TISSUES: No acute osseous lesion. Soft tissues a re unremarkable. UPPER ABDOMEN: No free air under the diaphragm. IMPRESSION: Mild pulmonary interstitial edema and small bilateral pleural ef fusions. Cardiomegaly. Low lung volumes with patchy opacities in the lowe r lungs which could represent atelectasis or pneumonia in the appropriate clin ical setting. Follow-up radiograph to resolution is suggested. Signed by : Dr. Sulema Rodriguez MD on 09/13/2018 8:01 AM Dictated By: SULEMA RODRIGUEZ MD El ectronically Signed By: SULEMA RODRIGUEZ MD on 09/13/18800 Transcribed By: AMILCAR on 09/13/18800 COPY TO: GENNY GREENE MD Sodium Level 2018-05-28 06:28:00* Test Item Value Reference Range Interpretation Comments Sodium Level (test code = 2951-2) 143 136-145 [facility] HospitalPotassium Pkxho3958-39-04 06:28:00* Test Item Value Reference Range Interpretation Comments Potassium Level (test code = 2823-3) 3.9 3.5-5.1 [facility] HospitalChloride Spoeh4538-45-56 06:28:00* Test Item Value Reference Range Interpretation Comments Chloride Level (test code = 2075-0) 105 98-107 [facility] HospitalCarbon Dioxide Injws7748-27-95 06:28:00* Test Item Value Reference Range Interpretation Comments Carbon Dioxide Level (test code = 8-) 27 22-29 [facility] HospitalAnion Xzx5116-74-98 06:28:00* Test Item Value Reference Range Interpretation Comments Anion Gap (test code = 35722-6) 14.9 8-16 [facility] HospitalBlood Urea Hneygqtn5243-75-11 06:28:00* Test Item Value Reference Range Interpretation Comments Blood Urea Nitrogen (test code = 3094-0) 22 7-26 [facility] HospitalCreatinine2018-09-07 06:28:00* Test Item Value Reference Range Interpretation Comments Creatinine (test code = 2160-0) 1.66 0.72-1.25 H [facility] HospitalBUN/Creatinine Bipuz3026-99-55 06:28:00* Test Item Value Reference Range Interpretation Comments BUN/Creatinine Ratio (test code = 3097-3) 13 6- [facility] HospitalEstimat Glomerular Filtration Rate 2018-05-28 06:28:00* Test Item Value Reference Range Interpretation Comments Estimat Glomerular Filtration Rate (test code = 26950-0) 42 >60 L Ranges were taken from the National Kidney Disease Education Program and the [facility] Kidney Foundation literature.Reference ranges:60 or greater: Pxotbm05-58 ( for 3 consecutive months): Chronic kidney disease 15 or less: Kidney failureEl Campo Memorial HospitalGlucose Ykaup9695-98-35 06:28:00* Test Item Value Reference Range Interpretation Comments Glucose Level (test code = UHT1016) 110 74-118 [facility] HospitalCalcium Enquo6372-71-44 06:28:00* Test Item Value Reference Range Interpretation Comments Calcium Level (test code = 55250-1) 9.5 8.4-10.2 [facility] HospitalWhite Blood Rjczm0685-14-56 06:09:00* Test Item Value Reference Range Interpretation Comments White Blood Count (test code = 6690-2) 7.70 4.8-10.8 [facility] HospitalRed Blood Cfkhc7167-28-25 06:09:00* Test Item Value Reference Range Interpretation Comments Red Blood Count (test code = 789-8) 4.31 4.3-5.7 [facility] HospitalHemoglobin2018-09-07 06:09:00* Test Item Value Reference Range Interpretation Comments Hemoglobin (test code = 41287-9) 12.6 14.0-18.0 L [facility] HospitalHematocrit2018-09-07 06:09:00* Test Item Value Reference Range Interpretation Comments Hematocrit (test code = 4544-3) 38.7 38.2-49.6 [facility] HospitalMean Corpuscular Vtvrwj5875-40-91 06:09:00* Test Item Value Reference Range Interpretation Comments Mean Corpuscular Volume (test code = 787-2) 89.8 81-99 [facility] HospitalMean Corpuscular Zobgohpeyy3811-45-73 06:09:00* Test Item Value Reference Range Interpretation Comments Mean Corpuscular Hemoglobin (test code = 785-6) 29.2 28-32 [facility] HospitalMean Corpuscular Hemoglobin Concent 2018-05-28 06:09:00* Test Item Value Reference Range Interpretation Comments Mean Corpuscular Hemoglobin Concent (test code = 786-4) 32.6 31-35 [facility] HospitalRed Cell Distribution Hgrra3548-54-60 06:09:00* Test Item Value Reference Range Interpretation Comments Red Cell Distribution Width (test code = 20379-9) 14.5 11.7 -14.4 H [facility] HospitalPlatelet Neqiw7495-68-55 06:09:00* Test Item Value Reference Range Interpretation Comments Platelet Count (test code = 777-3) 249 140-360 [facility] HospitalNeutrophils (%) (Auto)2018-05-28 06:09:00 * Test Item Value Reference Range Interpretation Comments Neutrophils (%) (Auto) (test code = 32288-9) 56.3 38.7-80.0 [facility] HospitalLymphocytes (%) (Auto)2018-05-28 06:09:00 * Test Item Value Reference Range Interpretation Comments Lymphocytes (%) (Auto) (test code = 736-9) 24.7 18.0-39.1 [facility] HospitalMonocytes (%) (Auto)2018-05-28 06:09:00* Test Item Value Reference Range Interpretation Comments Monocytes (%) (Auto) (test code = 5905-5) 13.0 4.4-11.3 H [facility] HospitalEosinophils (%) (Auto)2018-05-28 06:09:00 * Test Item Value Reference Range Interpretation Comments Eosinophils (%) (Auto) (test code = 713-8) 5.1 0.0-6.0 [facility] HospitalBasophils (%) (Auto)2018-05-28 06:09:00* Test Item Value Reference Range Interpretation Comments Basophils (%) (Auto) (test code = 706-2) 0.5 0.0-1.0 [facility] HospitalIM GRANULOCYTES %2018-05-28 06:09:00* Test Item Value Reference Range Interpretation Comments IM GRANULOCYTES % (test code = IM GRANULOCYTES %) 0.4 0.0- 1.0 [facility] HospitalNeutrophils # (Auto)2018-05-28 06:09:00* Test Item Value Reference Range Interpretation Comments Neutrophils # (Auto) (test code = 751-8) 4.3 2.1-6.9 [facility] HospitalLymphocytes # (Auto)2018-05-28 06:09:00* Test Item Value Reference Range Interpretation Comments Lymphocytes # (Auto) (test code = 51054-2) 1.9 1.0-3.2 [facility] HospitalMonocytes # (Auto)2018-05-28 06:09:00* Test Item Value Reference Range Interpretation Comments Monocytes # (Auto) (test code = 742-7) 1.0 0.2-0.8 H [facility] HospitalEosinophils # (Auto)2018-05-28 06:09:00* Test Item Value Reference Range Interpretation Comments Eosinophils # (Auto) (test code = 711-2) 0.4 0.0-0.4 [facility] HospitalBasophils # (Auto)2018-05-28 06:09:00* Test Item Value Reference Range Interpretation Comments Basophils # (Auto) (test code = 704-7) 0.0 0.0-0.1 [facility] HospitalAbsolute Immature Granulocyte (auto 2018-05-28 06:09:00* Test Item Value Reference Range Interpretation Comments Absolute Immature Granulocyte (auto (alba t code = Absolute Immature Granulocyte (auto) 0.03 0-0.1 [facility] Hhoogsc6372-85-28 07:31:00* Test Item Value Reference Range Interpretation Comments B-Type Natriuretic Peptide (test code = 27162-5) 440.9 0-100 H [facility] HospitalCT BRAIN [id number] 16:47:00 [facility] [address] [place] [address] Patient Name: MADDY FRAIRE MR #: [id number] : 0 1955 Age/Sex: 62/M Req #: [id number] Adm Physician: MANOHAR BAIG MD Ordered by: MANOHAR BAIG MD Report #: [id number] Locat ion: MED/SURG Room/Bed: [facility] Procedure: [id number] CT /CT BRAIN WO Exam Date: 05/25/18 Exam Time: 1600 REPORT STATUS: Signed Examination: CT head without contrast Clinical Ind ication: Increased confusion. Technique: Transaxial noncontrast images from th e skull base through the vertex were obtained. Sagittal and coronal reformatte d images were done. Dose modulation, iterative reconstruction, and/or weight b ased adjustment of the mA/kV was utilized to reduce the radiation dose to as l ow as reasonably achievable. Comparison: None. Findings: Scalp: N o abnormalities. Bones: Intact. No fractures. No blastic or lytic lesions. Brain sulci: Appropriate for patient's age. Ventricles: The ventricular si ze is out of proportion with respect to cerebral convexity sulci, concerning f or a communicating type of hydrocephalus, such as normal pressure hydrocephalu s. Extra-axial space: No abnormalities. Parenchyma: There are mi ld confluent areas of low-attenuation within subcortical and periventricular w seng matter, nonspecific, but could represent microvascular ischemic disease. No masses, hemorrhage, or acute or chronic cortical based vascular insults. Suprasellar region: No abnormalities. Craniocervical junction: The foramen magnum is patent. No Chiari one malformation. Impression: 1. No ac esther intracranial finding. 2. FIndings as described above are concerning fo r normal pressure hydrocephalus. 3. Moderate chronic microvascular isch emic change. Signed by: Dr. William Ag M.D. on 05/25/2018 4:50 PM Dictated By: WILLIAM ERICKSON MD 49 Transcribed By: AMILCAR on 05/25/181649 COPY TO: MANOHAR BAIG MD Total Rluywtnhe8791-82-19 05:58:00* Test Item Value Reference Range Interpretation Comments Total Bilirubin (test code = 1975-2) 0.6 0.2-1.2 [facility] HospitalAspartate Amino Transf (AST/SGOT) 2018-05-25 05:58:00* Test Item Value Reference Range Interpretation Comments Aspartate Amino Transf (AST/SGOT) (test code = Aspartate Amino Transf (AST/SGOT)) 18 5-34 [facility] HospitalAlanine Aminotransferase (ALT/SGPT) 2018-05-25 05:58:00* Test Item Value Reference Range Interpretation Comments Alanine Aminotransferase (ALT/SGPT) (test code = 1742-6) 15 0-55 [facility] HospitalTotal Ehgjxjw2174-41-59 05:58:00* Test Item Value Reference Range Interpretation Comments Total Protein (test code = 2885-2) 6.2 6.5-8.1 L [facility] HospitalAlbumin2018-09-04 05:58:00* Test Item Value Reference Range Interpretation Comments Albumin (test code = 1751-7) 3.2 3.5-5.0 L [facility] HospitalGlobulin2018-09-04 05:58:00* Test Item Value Reference Range Interpretation Comments Globulin (test code = 49513-4) 3.0 2.3-3.5 [facility] HospitalAlbumin/Globulin Cdvcq2217-62-58 05:58:00 * Test Item Value Reference Range Interpretation Comments Albumin/Globulin Ratio (test code = 1759-0) 1.1 0.8-2.0 [facility] HospitalAlkaline Bzmklalkxnn9209-31-90 05:58:00* Test Item Value Reference Range Interpretation Comments Alkaline Phosphatase (test code = 6768-6) 92 40-150 [facility] HospitalTriglycerides Ogrou3976-76-81 05:58:00* Test Item Value Reference Range Interpretation Comments Triglycerides Level (test code = 2571-8) 133 0-149 [facility] HospitalCholesterol Kiejl3086-38-66 05:58:00* Test Item Value Reference Range Interpretation Comments Cholesterol Level (test code = 2093-3) 163 0-199 Less than 200 mg/dL Low Nwdo575 - 239 mg/dL Borderline Zucl196 m g/dl and greater High Risk [facility] HospitalLDL Tvrridkeqyf9415-70-49 05:58:00* Test Item Value Reference Range Interpretation Comments LDL Cholesterol (test code = 2089-1) 104 60-130 [facility] HospitalHDL Itldwvydfcy3657-46-70 05:58:00* Test Item Value Reference Range Interpretation Comments HDL Cholesterol (test code = 2085-9) 32 40-60 L [facility] HospitalCholesterol/HDL Jvkad9351-39-46 05:58:00 * Test Item Value Reference Range Interpretation Comments Cholesterol/HDL Ratio (test code = 9830-1) 5.1 3.9-4.7 H [facility] HospitalCreatine Kinase PO1006-16-84 00:03:00* Test Item Value Reference Range Interpretation Comments Creatine Kinase MB (test code = 78559-8) 3.90 0-5.0 [facility] HospitalTroponin M4934-02-35 00:03:00* Test Item Value Reference Range Interpretation Comments Troponin I (test code = IOP5695) 0.022 0-0.300 [facility] HospitalCreatine Rexohl1652-83-28 23:48:00* Test Item Value Reference Range Interpretation Comments Creatine Kinase (test code = 2157-6) 161 30-200 [facility] HospitalUrine Eunlbxc7179-16-96 15:04:00* Test Item Value Reference Range Interpretation Comments Urine Clarity (test code = 15498-2) SL CLOUDY CLEAR H [facility] HospitalUrine Uqsch9380-33-03 14:23:00* Test Item Value Reference Range Interpretation Comments Urine Blood (test code = 22672-0) NEGATIVE NEGATIVE [facility] HospitalUrine SFB0127-14-17 14:23:00* Test Item Value Reference Range Interpretation Comments Urine WBC (test code = 5821-4) NONE 0-5 [facility] HospitalUrine FDD0457-00-07 14:23:00* Test Item Value Reference Range Interpretation Comments Urine RBC (test code = 26152-5) NONE 0-5 [facility] HospitalUrine Hhglvmrx1723-92-31 14:23:00* Test Item Value Reference Range Interpretation Comments Urine Bacteria (test code = 82103-1) NONE NONE [facility] HospitalU[facility] Epithelial Aidyz8682-72-82 14:23:00 * Test Item Value Reference Range Interpretation Comments Urine Epithelial Cells (test code = 90525-0) NONE NONE [facility] HospitalUrine Hlctm3079-12-63 13:32:00* Test Item Value Reference Range Interpretation Comments Urine Color (test code = 5778-6) YELLOW YELLOW [facility] HospitalUrine Specific Prmkrkk9075-56-11 13:32:00 * Test Item Value Reference Range Interpretation Comments Urine Specific [place] (test code = 5811-5) 1.010 1.010-1.02 5 [facility] HospitalUrine lM5160-17-24 13:32:00* Test Item Value Reference Range Interpretation Comments Urine pH (test code = 14111-8) 5 5-7 [facility] HospitalU[facility] Leukocyte Oagkkbvi6258-27-86 13:32:00* Test Item Value Reference Range Interpretation Comments Urine Leukocyte Esterase (test code = 5799-2) NEGATIVE NEGATIVE [facility] HospitalUrine Glbtchy3397-08-02 13:32:00* Test Item Value Reference Range Interpretation Comments Urine Nitrite (test code = 08700-7) NEGATIVE NEGATIVE [facility] HospitalU[facility] Itfghus3583-55-92 13:32:00* Test Item Value Reference Range Interpretation Comments Urine Protein (test code = 5804-0) NEGATIVE NEGATIVE [facility] HospitalUrine Glucose (UA)2018-05-24 13:32:00* Test Item Value Reference Range Interpretation Comments Urine Glucose (UA) (test code = 2349-9) NEGATIVE NEGATIVE [facility] HospitalUrine Kpvkxtc4464-74-73 13:32:00* Test Item Value Reference Range Interpretation Comments Urine Ketones (test code = 93037-5) NEGATIVE NEGATIVE [facility] HospitalUrine Qvlarmnfyzyc5790-01-06 13:32:00* Test Item Value Reference Range Interpretation Comments Urine Urobilinogen (test code = 44589-2) 0.2 0.2-1 [facility] HospitalUrine Iafkxrgtc2084-69-14 13:32:00* Test Item Value Reference Range Interpretation Comments Urine Bilirubin (test code = 1978-6) NEGATIVE NEGATIVE [facility] HospitalThyroid Stimulating Hormone (TSH) 2018-05-24 12:51:00* Test Item Value Reference Range Interpretation Comments Thyroid Stimulating Hormone (TSH) (test code = 29790-9) 2.466 0.350-4.940 [facility] HospitalMagnesium Afbgi7885-95-39 08:23:00* Test Item Value Reference Range Interpretation Comments Magnesium Level (test code = 06930-0) 1.9 1.3-2.1 [facility] HospitalD-Dimer Quantitative (PE/DVT)2018-05-24 07:28:00* Test Item Value Reference Range Interpretation Comments D-Dimer Quantitative (PE/DVT) (test code = 19623-9) 0.35 0. 00-0.45 [facility] HospitalD-Dimer Quantitative (PE/DVT)2018-05-24 07:28:00* Test Item Value Reference Range Interpretation Comments D-Dimer Quantitative (PE/DVT) (test code = 06307-2) 0.35 0. 00-0.45 [facility] HospitalProthrombin Bptw9733-17-22 07:18:00* Test Item Value Reference Range Interpretation Comments Prothrombin Time (test code = 5902-2) 14.9 11.9-14.5 H [facility] HospitalProthromb Time International Ratio 2018-05-24 07:18:00* Test Item Value Reference Range Interpretation Comments Prothromb Time International Ratio (test code = 6301-6) 1.27 Oral Anticoagulant Therapy INR Values:1. Low Intensity Therapy 1.5 - 2.02 . Moderate Intensity Therapy 2.0 - 3.03. High Intensity Therapy(1) 2.5 - 3. 54. High Intensity Therapy(2) 3.0 - 4.05. Panic Value INR > 5.0 [facility] HospitalActivated Partial Thromboplast Time 2018-05-24 07:18:00* Test Item Value Reference Range Interpretation Comments Activated Partial Thromboplast Time (test code = 04751-6) 27.6 23.8-35.5 [facility] HospitalProthrombin Zqta1978-19-77 07:18:00* Test Item Value Reference Range Interpretation Comments Prothrombin Time (test code = 5902-2) 14.9 11.9-14.5 H [facility] HospitalProthromb Time International Ratio 2018-05-24 07:18:00* Test Item Value Reference Range Interpretation Comments Prothromb Time International Ratio (test code = 6301-6) 1.27 Oral Anticoagulant Therapy INR Values:1. Low Intensity Therapy 1.5 - 2.02 . Moderate Intensity Therapy 2.0 - 3.03. High Intensity Therapy(1) 2.5 - 3. 54. High Intensity Therapy(2) 3.0 - 4.05. Panic Value INR > 5.0 [facility] HospitalActivated Partial Thromboplast Time 2018-05-24 07:18:00* Test Item Value Reference Range Interpretation Comments Activated Partial Thromboplast Time (test code = 41667-6) 27.6 23.8-35.5 [facility]2018-05-24 07:15:00 [facility] [address] [address] Patient Name: MADDY FRAIRE MR #: [id number] : 1955 Age/Sex: 62/M Req #: [id number] Adm Physician: Ordered by: MAKAYLA HARRY MD Report #: [id number] Location: ER Room/Bed: Procedure: [id number] DX/CHEST SINGLE (PORTABL E) Exam Date: 05/24/18 Exam Time: 0650 REPORT STATUS: Signed EXAMINATION: CHEST SINGLE (PORTABLE) INDICATION: COMPARISON: None FINDINGS: AP view TUBES and LINES: None. LUNGS: Lungs are well inflated. Bilateral pulmonary e viktoria. Bibasilar atelectasis. PLEURA: Small bilateral pleural effusions . No pneumothorax. HEART AND MEDIASTINUM: Moderate enlargement of the card iac silhouette. BONES AND SOFT TISSUES: No acute osseous lesion. Soft t issues are unremarkable. UPPER ABDOMEN: No free air under the diaphragm. IMPRESSION: Moderate enlargement of the cardiac silhouette with asso ciated bilateral pulmonary edema. Signed by: Dr. Kay Jackson M.D. on 05/24/2018 7:16 AM Dictated By: KAY DALLAS MD Ann ctronically Signed By: KAY DALLAS MD on 05/24/18715 Transcribed By: AMILCAR on 05/24/18715 COPY TO: MAKAYLA HARRY MD
--- NOTE | 2020-06-21 12:16 | NUR ---
[facility] CALLED FOR TRANSPORT
--- NOTE | 2020-06-21 12:17 | NUR ---
ETA 1.5 HOURS
== END 2020-06-21 13:35 | disposition home or self-care (01) ==
LOC: ER 11:50
DX: E66.9 Obesity, unspecified (principal); I10 Essential (primary) hypertension; I50.9 Heart failure, unspecified; J44.9 Chronic obstructive pulmonary disease, unspecified; F31.9 Bipolar disorder, unspecified
CPT/HCPCS: 99284

== ENCOUNTER 2023-03-25 17:43 | Emergency (ER) | payer MEDICARE ==
[~2023-03-25] VITALS: Ht 177.8 cm; Wt 117.0 kg
[2023-03-25] MEDS ORDERED: SODIUM CHLORIDE 0.9% 1000ML 1,000 ML IV SCH (18:00)
[2023-03-25 18:05] LABS: BASOPHILS # (AUTO) 0.1 (0.0-0.1); BASOPHILS % 0.7 % (0.0-1.0); EOSINOPHILS # (AUTO) 0.5 (0.0-0.4); HEMATOCRIT 42.9 % (38.2-49.6); LYMPHOCYTES # (AUTO) 1.8 (1.0-3.2); LYMPHOCYTES % 23.1 % (18.0-39.1); MEAN CORPUSCULAR HEMOGLOBIN 29.1 pg (28-32); MEAN CORPUSCULAR HGB CONC 32.6 g/dL (31-35); MEAN CORPUSCULAR VOLUME 89.2 fL (81-99); MONOCYTES # (AUTO) 0.8 (0.2-0.8); MONOCYTES % 10.2 % (4.4-11.3); NEUTROPHILS # (AUTO) 4.5 (2.1-6.9); NEUTROPHILS % 58.9 % (38.7-80.0); PLATELET COUNT 273 x10e3/uL (140-360); RED BLOOD COUNT 4.81 x10e6/uL (4.3-5.7); RED CELL DISTRIBUTION WIDTH 14.5 % (11.7-14.4)
[2023-03-25 18:13] LABS: INR 1.02
[2023-03-25 18:24] LABS: ALBUMIN/GLOBULIN RATIO 0.8 (0.8-2.0); ANION GAP 15.3 mmol/L (8-16); CREATININE, SERUM 1.54 mg/dL (0.72-1.25); POTASSIUM 4.3 mmol/L (3.5-5.1)
[2023-03-25] MEDS ORDERED: CEFTRIAXONE 1 GM VIAL IV ONE (18:30)
[2023-03-25 18:32] LABS: B-TYPE NATRIURETIC PEPTIDE2 475.2 pg/mL (0-100)
[2023-03-25 18:57] LABS: INFLUENZAE A&B ANTIGEN (RAPID) NEGATIVE (NEGATIVE); STREPTOCOCCUS GRP A ANTIGEN NEGATIVE (NEGATIVE)
[2023-03-25] MEDS ORDERED: SODIUM CHLORIDE 0.9% 1000ML 1,000 ML IV ONE (20:15)
[2023-03-25] MEDS ORDERED: METOPROLOL TARTRATE INJ 1 MG/ML VIAL IV ONE (21:30)
[2023-03-26 03:22] LABS: FREE T4 (FREE THYROXINE) 1.19 ng/dL (0.8-1.8); THYROID STIMULATING HORMONE 1.016 uIU/mL (0.350-4.940)
[2023-03-26 03:34] VITALS: O2SAT 98
== END 2023-03-26 03:45 | disposition short-term general hospital (02) ==
LOC: ER 18:02
DX: U07.1 COVID-19 (principal); R00.0 Tachycardia, unspecified; I71.21 Aneurysm of the ascending aorta, without rupture
CPT/HCPCS: 36415; 71045; 71260; 80053; 83518; 83605; 83880; 84439; 84443; 84484; 85025; 85610; 85730; 87040; 87070; 87400; 93005; 99285; J0696; J7030; U0002

== ENCOUNTER 2024-06-06 22:00 | Emergency (ER) | payer MEDICARE ==
[~2024-06-06] VITALS: Ht 172.7 cm; Wt 108.0 kg
[~2024-06-06 22:00] MED LIST changes: +ALPRAZOLAM0.25 M1 PO; +AMOXICILLIN250 MG PO; +FINASTERIDE5 MG PO; +MEMANTINE HCL E28 MG PO; +OXYBUTYNIN CHLO10 MG PO
[2024-06-06 22:07] VITALS: TEMP 97.6
[2024-06-07 01:37] VITALS: PULSE 65; RESP 16; O2SAT 96
== END 2024-06-07 01:54 | disposition home or self-care (01) ==
LOC: ER 22:06
DX: S00.83XA Contusion of other part of head, initial encounter (principal); R04.0 Epistaxis; M54.50 Low back pain, unspecified; W06.XXXA Fall from bed, initial encounter; Y92.89 Other specified places as the place of occurrence of the external cause; F03.90 Unspecified dementia, unspecified severity, without behavioral disturbance, psychotic disturbance, mood disturbance, and anxiety; I10 Essential (primary) hypertension; J44.9 Chronic obstructive pulmonary disease, unspecified; I48.91 Unspecified atrial fibrillation; F31.9 Bipolar disorder, unspecified
CPT/HCPCS: 70450; 72131; 99283

== ENCOUNTER 2024-06-18 16:19 | Inpatient (IN) | payer MEDICARE ==
[~2024-06-18] VITALS: Ht 177.8 cm; Wt 83.1 kg
[2024-06-18 17:15] LABS: BASOPHILS % 0.5 % (0.0-1.0); EOSINOPHILS # (AUTO) 0.3 (0.0-0.4); HEMATOCRIT 26.5 % (38.2-49.6); HEMOGLOBIN 8.5 g/dL (14.0-18.0); LYMPHOCYTES % 22.1 % (18.0-39.1); MEAN CORPUSCULAR HGB CONC 32.1 g/dL (31-35); MEAN CORPUSCULAR VOLUME 93.6 fL (81-99); MONOCYTES # (AUTO) 0.5 (0.2-0.8); MONOCYTES % 11.5 % (4.4-11.3); NEUTROPHILS # (AUTO) 2.6 (2.1-6.9); NEUTROPHILS % 58.4 % (38.7-80.0); PLATELET COUNT 209 x10e3/uL (140-360); RED BLOOD COUNT 2.83 x10e6/uL (4.3-5.7); RED CELL DISTRIBUTION WIDTH 14.9 % (11.7-14.4); WHITE BLOOD COUNT 4.44 x10e3/uL (4.8-10.8)
[2024-06-18 17:25] LABS: INR 1.19; PROTHROMBIN TIME 15.7 seconds (11.9-14.5)
[2024-06-18 17:26] LABS: PARTIAL THROMBOPLASTIN TIME 28.1 seconds (23.8-35.5)
[2024-06-18 17:37] LABS: ALBUMIN 2.7 g/dL (3.5-5.0); ANION GAP 12.3 mmol/L (8-16); BILIRUBIN,TOTAL 0.7 mg/dL (0.2-1.2); CALCIUM 8.5 mg/dL (8.4-10.2); CREATININE, SERUM 2.51 mg/dL (0.72-1.25); TOTAL PROTEIN 5.5 g/dL (6.5-8.1)
[2024-06-18 17:39] LABS: POTASSIUM 3.3 mmol/L (3.5-5.1)
[2024-06-18 17:43] LABS: TROPONIN I 0.03 ng/mL (0-0.300)
[2024-06-18] MEDS ORDERED: ONDANSETRON HCL INJ 2MG/ML 2ML 2 MG/ML VIAL IV PRN (18:30)
[2024-06-18 18:58] VITALS: PULSE 61; RESP 17
[2024-06-18] MEDS: SODIUM CHLORIDE 0.9% 1000ML 1,000 ML IV SCH (19:18)
[2024-06-18 21:30] VITALS: BP 140/68; PULSE 62; RESP 18; TEMP 97.6; O2SAT 98
[2024-06-18 23:58] VITALS: BP 140/68; PULSE 62; RESP 18; TEMP 97.6; O2SAT 98
[2024-06-18 23:59] VITALS: BP 140/68; PULSE 62; RESP 18; TEMP 97.6; O2SAT 98
[2024-06-19] VITALS (7 sets, daily range): BP systolic 114–164; BP diastolic 63–117; PULSE 61–70; RESP 18–19; TEMP 97.6–98.2; O2SAT 95–99
[2024-06-19 06:35] LABS: BASOPHILS % 0.3 % (0.0-1.0); EOSINOPHILS # (AUTO) 0.2 (0.0-0.4); EOSINOPHILS % 2.8 % (0.0-6.0); HEMATOCRIT 25.1 % (38.2-49.6); LYMPHOCYTES # (AUTO) 1.2 (1.0-3.2); LYMPHOCYTES % 21.2 % (18.0-39.1); MEAN CORPUSCULAR HEMOGLOBIN 30.3 pg (28-32); MEAN CORPUSCULAR HGB CONC 31.9 g/dL (31-35); MEAN CORPUSCULAR VOLUME 95.1 fL (81-99); MONOCYTES # (AUTO) 0.8 (0.2-0.8); MONOCYTES % 14.1 % (4.4-11.3); NEUTROPHILS # (AUTO) 3.5 (2.1-6.9); NEUTROPHILS % 61.4 % (38.7-80.0); PLATELET COUNT 174 x10e3/uL (140-360); RED BLOOD COUNT 2.64 x10e6/uL (4.3-5.7); RED CELL DISTRIBUTION WIDTH 15.1 % (11.7-14.4); WHITE BLOOD COUNT 5.76 x10e3/uL (4.8-10.8)
[2024-06-19 07:10] LABS: ALBUMIN 2.6 g/dL (3.5-5.0); ANION GAP 11.2 mmol/L (8-16); BILIRUBIN,TOTAL 0.7 mg/dL (0.2-1.2); CALCIUM 8.4 mg/dL (8.4-10.2); CREATININE, SERUM 2.38 mg/dL (0.72-1.25); POTASSIUM 3.2 mmol/L (3.5-5.1); TOTAL PROTEIN 5.3 g/dL (6.5-8.1)
[2024-06-19] MEDS: FINASTERIDE 5 MG TAB PO SCH (09:48)
[2024-06-19] MEDS: ASPIRIN 81 MG CHEW TAB PO SCH (09:48)
[2024-06-19] MEDS: CARVEDILOL 12.5 MG TAB PO SCH (09:49)
[2024-06-19] MEDS: VENLAFAXINE HCL 75 MG CAPCR PO SCH (12:54)
[2024-06-19 18:31] LABS: CLARITY,URINE SL CLOUDY (CLEAR); COLOR,URINE YELLOW (YELLOW); LEUKOCYTE ESTERASE ,URINE 1+ (NEGATIVE); PH,URINE 6 (5 - 7)
[2024-06-19 18:32] LABS: BILIRUBIN,URINE 1+ (NEGATIVE); GLUCOSE, URINE NEGATIVE (NEGATIVE); KETONES,URINE TRACE (NEGATIVE); NITRITE,URINE NEGATIVE (NEGATIVE); PROTEIN,URINE DIPSTICK NEGATIVE (NEGATIVE); URINE UROBILINOGEN 1 mg/dL (0.2 - 1)
[2024-06-19 18:40] LABS: BACTERIA,URINE MANY /HPF; EPITHELIAL CELLS,URINE MANY /LPF; MUCUS,URINE FEW (RARE); RBC,URINE 21-50 /HPF (0-5); RENAL EPITHELIAL CELLS,URINE FEW; TRANSITIONAL EPI CELLS,URINE FEW; WBC,URINE (MAN) >50 /HPF (0-5)
[2024-06-19] MEDS: ATORVASTATIN 20 MG TAB PO SCH (21:00)
[2024-06-20] VITALS (7 sets, daily range): BP systolic 133–143; BP diastolic 65–73; PULSE 59–73; RESP 15–18; TEMP 97.3–98.5; O2SAT 96–100
[2024-06-20] MEDS: ALPRAZOLAM 0.25 MG TAB PO PRN (21:12)
[2024-06-21] VITALS (8 sets, daily range): BP systolic 138–150; BP diastolic 8–90; PULSE 61–76; RESP 17–18; TEMP 36.6; O2SAT 95–100
[2024-06-21 06:19] LABS: BASOPHILS % 0.4 % (0.0-1.0); EOSINOPHILS # (AUTO) 0.3 (0.0-0.4); EOSINOPHILS % 5.8 % (0.0-6.0); HEMATOCRIT 22.5 % (38.2-49.6); LYMPHOCYTES # (AUTO) 1.5 (1.0-3.2); LYMPHOCYTES % 31.5 % (18.0-39.1); MEAN CORPUSCULAR HGB CONC 31.1 g/dL (31-35); MEAN CORPUSCULAR VOLUME 96.6 fL (81-99); MONOCYTES # (AUTO) 0.6 (0.2-0.8); MONOCYTES % 12.5 % (4.4-11.3); NEUTROPHILS # (AUTO) 2.3 (2.1-6.9); NEUTROPHILS % 49.6 % (38.7-80.0); PLATELET COUNT 156 x10e3/uL (140-360); RED BLOOD COUNT 2.33 x10e6/uL (4.3-5.7); RED CELL DISTRIBUTION WIDTH 15.9 % (11.7-14.4); WHITE BLOOD COUNT 4.63 x10e3/uL (4.8-10.8)
[2024-06-21 06:47] LABS: ANION GAP 11.5 mmol/L (8-16); CALCIUM 8.2 mg/dL (8.4-10.2); CREATININE, SERUM 2.16 mg/dL (0.72-1.25); POTASSIUM 3.5 mmol/L (3.5-5.1)
[2024-06-22] VITALS (10 sets, daily range): BP systolic 120–160; BP diastolic 62–93; PULSE 58–70; RESP 18–20; TEMP 97.7–98.6; O2SAT 91–100
[2024-06-22] MEDS: LORAZEPAM INJ 2 MG/ML VIAL IV ONE (01:56)
[2024-06-22 05:57] LABS: BASOPHILS % 0.7 % (0.0-1.0); EOSINOPHILS # (AUTO) 0.3 (0.0-0.4); EOSINOPHILS % 5.8 % (0.0-6.0); HEMATOCRIT 21.3 % (38.2-49.6); LYMPHOCYTES # (AUTO) 1.5 (1.0-3.2); LYMPHOCYTES % 34.3 % (18.0-39.1); MEAN CORPUSCULAR HEMOGLOBIN 30.2 pg (28-32); MEAN CORPUSCULAR HGB CONC 31.5 g/dL (31-35); MEAN CORPUSCULAR VOLUME 95.9 fL (81-99); MONOCYTES # (AUTO) 0.5 (0.2-0.8); MONOCYTES % 11.4 % (4.4-11.3); NEUTROPHILS # (AUTO) 2.1 (2.1-6.9); NEUTROPHILS % 47.6 % (38.7-80.0); PLATELET COUNT 155 x10e3/uL (140-360); RED BLOOD COUNT 2.22 x10e6/uL (4.3-5.7); RED CELL DISTRIBUTION WIDTH 16.1 % (11.7-14.4); WHITE BLOOD COUNT 4.31 x10e3/uL (4.8-10.8)
[2024-06-22 06:04] LABS: HEMOGLOBIN 6.7 g/dL (14.0-18.0)
[2024-06-22 06:21] LABS: ANION GAP 11.2 mmol/L (8-16); CREATININE, SERUM 2.01 mg/dL (0.72-1.25)
[2024-06-22 06:22] LABS: POTASSIUM 3.2 mmol/L (3.5-5.1)
[2024-06-22 06:49] LABS: % IRON SATURATION 37 % (15-50); IRON 39 ug/dL (65-175); TOTAL IRON BINDING CAPACITY 105 ug/dL (261-478); TRANSFERRIN 75 mg/dL (174-364)
[2024-06-22] MEDS ORDERED: ONDANSETRON HCL 4 MG ORAL DISINTEGRATING TAB PO PRN (09:45)
[2024-06-22] MEDS: POTASSIUM CHLORIDE 20 MEQ TAB CR PO ONE (11:02)
[2024-06-22] MEDS: IRON SUCROSE 100 MG in SODIUM CHLORIDE 0.9% 100 ML IV SCH (11:02)
[2024-06-22] MEDS ORDERED: LORAZEPAM INJ 2 MG/ML VIAL IV ONE (14:45)
[2024-06-22] MEDS: SODIUM CHLORIDE 0.9% 250ML 250 ML IV ONE (17:34)
[2024-06-22] MEDS: AZITHROMYCIN 250 MG TAB PO SCH (20:43)
[2024-06-22] MEDS: LORAZEPAM INJ 2 MG/ML VIAL IV PRN (22:12)
[2024-06-22] MEDS: SODIUM CHLORIDE 0.9% 250ML 250 ML ONE (22:13)
[2024-06-23] VITALS (9 sets, daily range): BP systolic 138–174; BP diastolic 62–95; PULSE 61–85; RESP 18–20; TEMP 97.7–98.8; O2SAT 97–100
[2024-06-23 06:39] LABS: ALBUMIN 2.6 g/dL (3.5-5.0); ANION GAP 11.7 mmol/L (8-16); BILIRUBIN,TOTAL 0.8 mg/dL (0.2-1.2); CALCIUM 8.4 mg/dL (8.4-10.2); CREATININE, SERUM 1.85 mg/dL (0.72-1.25); POTASSIUM 3.7 mmol/L (3.5-5.1); TOTAL PROTEIN 5.1 g/dL (6.5-8.1)
[2024-06-24 08:56] VITALS: BP 157/94; PULSE 85; RESP 22; TEMP 98.3; O2SAT 100
[2024-06-24 09:01] VITALS: BP 157/94; PULSE 85; RESP 22; TEMP 98.3; O2SAT 100
[2024-06-24 12:04] VITALS: BP 161/89; PULSE 92; RESP 22; TEMP 100.3; O2SAT 100
[2024-06-24 13:02] LABS: BASOPHILS % 0.6 % (0.0-1.0); EOSINOPHILS # (AUTO) 0.4 (0.0-0.4); EOSINOPHILS % 6.4 % (0.0-6.0); HEMATOCRIT 28.4 % (38.2-49.6); HEMOGLOBIN 9.1 g/dL (14.0-18.0); LYMPHOCYTES # (AUTO) 1.4 (1.0-3.2); LYMPHOCYTES % 22.9 % (18.0-39.1); MEAN CORPUSCULAR HEMOGLOBIN 30.5 pg (28-32); MEAN CORPUSCULAR VOLUME 95.3 fL (81-99); MONOCYTES # (AUTO) 0.8 (0.2-0.8); MONOCYTES % 12.7 % (4.4-11.3); NEUTROPHILS # (AUTO) 3.6 (2.1-6.9); NEUTROPHILS % 57.2 % (38.7-80.0); PLATELET COUNT 161 x10e3/uL (140-360); RED BLOOD COUNT 2.98 x10e6/uL (4.3-5.7); RED CELL DISTRIBUTION WIDTH 16.8 % (11.7-14.4); WHITE BLOOD COUNT 6.28 x10e3/uL (4.8-10.8)
[2024-06-24] MEDS: ACETAMINOPHEN 1000 MG/100 ML IV PRN (15:08)
[2024-06-24 16:43] VITALS: BP 159/94; PULSE 85; RESP 20; TEMP 98.5; O2SAT 98
[2024-06-24 19:58] VITALS: BP 167/91; PULSE 86; RESP 22; TEMP 98.2; O2SAT 97
[2024-06-24] MEDS: DEXTROSE 5%/0.9% SOD CHL 1,000 ML IV SCH (22:17)
[2024-06-24 23:50] VITALS: BP 164/85; PULSE 88; RESP 21; TEMP 98.6; O2SAT 97
[2024-06-25] VITALS (7 sets, daily range): BP systolic 136–169; BP diastolic 85–92; PULSE 72–91; RESP 18–20; TEMP 98–99.1; O2SAT 96–98
[2024-06-25 05:39] LABS: BASOPHILS % 0.5 % (0.0-1.0); EOSINOPHILS # (AUTO) 0.3 (0.0-0.4); EOSINOPHILS % 5.6 % (0.0-6.0); HEMATOCRIT 27.6 % (38.2-49.6); HEMOGLOBIN 8.8 g/dL (14.0-18.0); LYMPHOCYTES # (AUTO) 1.4 (1.0-3.2); LYMPHOCYTES % 23.6 % (18.0-39.1); MEAN CORPUSCULAR HEMOGLOBIN 30.6 pg (28-32); MEAN CORPUSCULAR HGB CONC 31.9 g/dL (31-35); MEAN CORPUSCULAR VOLUME 95.8 fL (81-99); MONOCYTES # (AUTO) 0.7 (0.2-0.8); MONOCYTES % 12.5 % (4.4-11.3); NEUTROPHILS # (AUTO) 3.4 (2.1-6.9); NEUTROPHILS % 57.6 % (38.7-80.0); PLATELET COUNT 144 x10e3/uL (140-360); RED BLOOD COUNT 2.88 x10e6/uL (4.3-5.7); RED CELL DISTRIBUTION WIDTH 16.5 % (11.7-14.4); WHITE BLOOD COUNT 5.94 x10e3/uL (4.8-10.8)
[2024-06-25 05:54] LABS: ANION GAP 12.4 mmol/L (8-16); CALCIUM 7.9 mg/dL (8.4-10.2); CREATININE, SERUM 1.68 mg/dL (0.72-1.25)
[2024-06-25 06:27] LABS: POTASSIUM 3.4 mmol/L (3.5-5.1)
[2024-06-25] MEDS: METOPROLOL TARTRATE INJ 1 MG/ML VIAL IV PRN (10:09)
[2024-06-25] MEDS: POTASSIUM CHLORIDE 20MEQ/100ML 100 ML IV ONE (12:34)
[2024-06-25] MEDS: CLONIDINE HCL 0.2 MG/24 HR 1 EA PATCH TOP SCH (12:34)
[2024-06-26] VITALS (7 sets, daily range): BP systolic 148–168; BP diastolic 68–82; PULSE 68–83; RESP 17–21; TEMP 97.6–98.5; O2SAT 95–99
[2024-06-26 06:20] LABS: BASOPHILS % 0.4 % (0.0-1.0); EOSINOPHILS # (AUTO) 0.3 (0.0-0.4); EOSINOPHILS % 4.6 % (0.0-6.0); HEMATOCRIT 28.1 % (38.2-49.6); LYMPHOCYTES % 18.2 % (18.0-39.1); MEAN CORPUSCULAR HEMOGLOBIN 30.6 pg (28-32); MEAN CORPUSCULAR VOLUME 95.6 fL (81-99); MONOCYTES # (AUTO) 0.7 (0.2-0.8); MONOCYTES % 11.8 % (4.4-11.3); NEUTROPHILS # (AUTO) 3.7 (2.1-6.9); NEUTROPHILS % 64.6 % (38.7-80.0); PLATELET COUNT 140 x10e3/uL (140-360); RED BLOOD COUNT 2.94 x10e6/uL (4.3-5.7); RED CELL DISTRIBUTION WIDTH 16.9 % (11.7-14.4); WHITE BLOOD COUNT 5.67 x10e3/uL (4.8-10.8)
[2024-06-26 06:31] LABS: ANION GAP 11.5 mmol/L (8-16); CREATININE, SERUM 1.61 mg/dL (0.72-1.25); POTASSIUM 3.5 mmol/L (3.5-5.1)
[2024-06-27 06:11] VITALS: BP 151/76; PULSE 61; RESP 21; TEMP 98.8; O2SAT 97
[2024-06-27 08:00] VITALS: BP 139/78; PULSE 63; RESP 17; TEMP 98; O2SAT 98
[2024-06-27 12:00] VITALS: BP 147/75; PULSE 67; RESP 17; TEMP 98.1; O2SAT 97
[2024-06-27 12:59] LABS: BASOPHILS % 0.4 % (0.0-1.0); EOSINOPHILS # (AUTO) 0.6 (0.0-0.4); EOSINOPHILS % 8.4 % (0.0-6.0); HEMATOCRIT 34.8 % (38.2-49.6); HEMOGLOBIN 10.7 g/dL (14.0-18.0); LYMPHOCYTES # (AUTO) 1.5 (1.0-3.2); LYMPHOCYTES % 21.9 % (18.0-39.1); MEAN CORPUSCULAR HEMOGLOBIN 30.4 pg (28-32); MEAN CORPUSCULAR HGB CONC 30.7 g/dL (31-35); MEAN CORPUSCULAR VOLUME 98.9 fL (81-99); MONOCYTES # (AUTO) 0.6 (0.2-0.8); MONOCYTES % 8.7 % (4.4-11.3); NEUTROPHILS # (AUTO) 4.2 (2.1-6.9); NEUTROPHILS % 60.3 % (38.7-80.0); PLATELET COUNT 147 x10e3/uL (140-360); RED BLOOD COUNT 3.52 x10e6/uL (4.3-5.7); WHITE BLOOD COUNT 6.91 x10e3/uL (4.8-10.8)
[2024-06-27 13:18] LABS: ALBUMIN 2.4 g/dL (3.5-5.0); ALBUMIN/GLOBULIN RATIO 0.9 (0.8-2.0); ANION GAP 12.3 mmol/L (8-16); BILIRUBIN,TOTAL 0.5 mg/dL (0.2-1.2); CALCIUM 8.2 mg/dL (8.4-10.2); CREATININE, SERUM 1.63 mg/dL (0.72-1.25); TOTAL PROTEIN 5.1 g/dL (6.5-8.1)
[2024-06-27 13:33] LABS: POTASSIUM 3.3 mmol/L (3.5-5.1)
[2024-06-27 16:00] VITALS: BP 133/79; PULSE 63; RESP 19; TEMP 98.3; O2SAT 100
[2024-06-27 20:00] VITALS: BP 129/74; PULSE 62; RESP 20; TEMP 97.8; O2SAT 98
[2024-06-27] MEDS: FUROSEMIDE INJ 10 MG/ML 2 ML VIAL IV ONE (22:12)
[2024-06-27 23:02] VITALS: BP 146/82; PULSE 61; RESP 16; TEMP 97.5; O2SAT 100
[2024-06-28 03:07] VITALS: BP 143/67; PULSE 61; RESP 16; TEMP 98; O2SAT 100
[2024-06-28 07:40] LABS: ANION GAP 9.4 mmol/L (8-16); CALCIUM 7.8 mg/dL (8.4-10.2); CREATININE, SERUM 1.48 mg/dL (0.72-1.25)
[2024-06-28 07:53] LABS: POTASSIUM 3.4 mmol/L (3.5-5.1)
[2024-06-28 09:04] VITALS: BP 135/73; PULSE 65; RESP 18; TEMP 98.3; O2SAT 97
[2024-06-28 13:56] VITALS: BP 131/70; PULSE 69; RESP 17; TEMP 98; O2SAT 97
[2024-06-28 14:14] VITALS: BP 109/80; PULSE 71; RESP 17; TEMP 98.3; O2SAT 95
[2024-06-28 20:10] VITALS: BP 144/66; PULSE 60; RESP 18; TEMP 98.2; O2SAT 98
[2024-06-28 21:00] VITALS: BP 144/66; PULSE 60; RESP 18; TEMP 98.2; O2SAT 98
[2024-06-29 00:11] VITALS: BP 138/69; PULSE 61; RESP 18; TEMP 98.8; O2SAT 99
[2024-06-29 04:00] VITALS: BP 143/74; PULSE 61; RESP 17; TEMP 98.1; O2SAT 95
[2024-06-29 08:00] VITALS: BP 151/71; PULSE 65; RESP 18; TEMP 98.1; O2SAT 99
[2024-06-29 11:06] VITALS: BP 151/71; PULSE 65; RESP 18; TEMP 98.1; O2SAT 99
== END 2024-06-29 12:25 | disposition home or self-care (01) | DRG 193 ==
LOC: ER 16:42 → ERHOLD 18:18 → MED/SURG3 21:30 → INTOOBSV 06-19 07:59 → OBSVTOIN 06-19 07:59
PROVIDERS: ADMIT Family Medicine; ATTEND Family Medicine
PROC: 30233N1 Transfusion of Nonautologous Red Blood Cells into Peripheral Vein, Percutaneous Approach (ICD-10-PCS; 2024-06-22)
PROC: 02HV33Z Insertion of Infusion Device into Superior Vena Cava, Percutaneous Approach (ICD-10-PCS; principal; 2024-06-23)
DX: J18.9 Pneumonia, unspecified organism (principal); G93.41 Metabolic encephalopathy; N17.9 Acute kidney failure, unspecified; C64.2 Malignant neoplasm of left kidney, except renal pelvis; F03.911 Unspecified dementia, unspecified severity, with agitation; J44.9 Chronic obstructive pulmonary disease, unspecified; I12.9 Hypertensive chronic kidney disease with stage 1 through stage 4 chronic kidney disease, or unspecified chronic kidney disease; N18.32 Chronic kidney disease, stage 3b; I48.91 Unspecified atrial fibrillation; E78.5 Hyperlipidemia, unspecified; I25.10 Atherosclerotic heart disease of native coronary artery without angina pectoris; D50.0 Iron deficiency anemia secondary to blood loss (chronic); Z79.82 Long term (current) use of aspirin
CPT/HCPCS: 36415; 70450; 71045; 74176; 76770; 80048; 80053; 81001; 82550; 82948; 83540; 84466; 84484; 85025; 85610; 85730; 86850; 86900; 86920; 93005; 99252; 99284; G0378; J0696; J1756; J1940; J2060; J3480; J7030; J7042; J7050; P9016

== ENCOUNTER 2024-07-09 14:33 | Emergency (ER) | payer MEDICARE ==
[~2024-07-09] VITALS: Ht 177.8 cm; Wt 83.0 kg
[2024-07-09 14:49] VITALS: TEMP 98.2
[2024-07-09 15:22] LABS: BASOPHILS % 0.6 % (0.0-1.0); EOSINOPHILS # (AUTO) 0.3 (0.0-0.4); EOSINOPHILS % 5.5 % (0.0-6.0); HEMATOCRIT 29.5 % (38.2-49.6); HEMOGLOBIN 9.2 g/dL (14.0-18.0); LYMPHOCYTES # (AUTO) 0.9 (1.0-3.2); LYMPHOCYTES % 18.4 % (18.0-39.1); MEAN CORPUSCULAR HEMOGLOBIN 30.7 pg (28-32); MEAN CORPUSCULAR HGB CONC 31.2 g/dL (31-35); MEAN CORPUSCULAR VOLUME 98.3 fL (81-99); MONOCYTES # (AUTO) 0.4 (0.2-0.8); MONOCYTES % 7.9 % (4.4-11.3); NEUTROPHILS # (AUTO) 3.4 (2.1-6.9); NEUTROPHILS % 67.4 % (38.7-80.0); PLATELET COUNT 133 x10e3/uL (140-360); RED CELL DISTRIBUTION WIDTH 15.8 % (11.7-14.4); WHITE BLOOD COUNT 5.05 x10e3/uL (4.8-10.8)
[2024-07-09 15:27] LABS: BILIRUBIN,URINE NEGATIVE (NEGATIVE); CLARITY,URINE HAZY (CLEAR); COLOR,URINE YELLOW (YELLOW); GLUCOSE, URINE NEGATIVE (NEGATIVE); KETONES,URINE NEGATIVE (NEGATIVE); LEUKOCYTE ESTERASE ,URINE NEGATIVE (NEGATIVE); NITRITE,URINE NEGATIVE (NEGATIVE); PH,URINE 7 (5 - 7); PROTEIN,URINE DIPSTICK NEGATIVE (NEGATIVE); RBC,URINE 0-5 /HPF (0-5); URINE UROBILINOGEN 1 mg/dL (0.2 - 1); WBC,URINE (MAN) 0-5 /HPF (0-5)
[2024-07-09 15:28] LABS: BACTERIA,URINE FEW /HPF; EPITHELIAL CELLS,URINE FEW /LPF
[2024-07-09 15:42] LABS: ALBUMIN 2.5 g/dL (3.5-5.0); ALBUMIN/GLOBULIN RATIO 0.8 (0.8-2.0); ANION GAP 11.5 mmol/L (8-16); BILIRUBIN,TOTAL 0.7 mg/dL (0.2-1.2); CALCIUM 8.5 mg/dL (8.4-10.2); CREATININE, SERUM 1.92 mg/dL (0.72-1.25); POTASSIUM 3.5 mmol/L (3.5-5.1); TOTAL PROTEIN 5.5 g/dL (6.5-8.1)
[2024-07-09] MEDS: SODIUM CHLORIDE 0.9% 1000ML 1,000 ML IV ONE (16:30)
[2024-07-09 17:30] VITALS: PULSE 60; RESP 16
[2024-07-09 20:04] VITALS: BP 129/70; PULSE 71; RESP 18; TEMP 98.3; O2SAT 99
== END 2024-07-09 20:00 | disposition home or self-care (01) ==
LOC: ER 14:42
DX: R41.82 Altered mental status, unspecified (principal); R79.89 Other specified abnormal findings of blood chemistry; F03.90 Unspecified dementia, unspecified severity, without behavioral disturbance, psychotic disturbance, mood disturbance, and anxiety; I10 Essential (primary) hypertension; J44.9 Chronic obstructive pulmonary disease, unspecified; I48.91 Unspecified atrial fibrillation; F31.9 Bipolar disorder, unspecified
CPT/HCPCS: 36415; 70450; 80053; 81001; 85025; 99283; J7030